=== PATIENT | male | born 1945 | race Caucasian/White ===

== ENCOUNTER 2016-07-31 22:53 | Inpatient (IN) | payer MEDICARE ==
[2016-07-31] MEDS ORDERED: SODIUM CHLORIDE 0.9% 1,000 ML IV STA (23:05)
[2016-07-31] MEDS ORDERED: DILTIAZEM 125 MG in SODIUM CHLORIDE 0.9% 100 ML IV ONE (23:09)
[2016-07-31] MEDS ORDERED: DILTIAZEM 5 MG/ML 5 ML VIAL IVP STA (23:09)
--- NOTE | 2016-07-31 23:31 | ED ---
General Adult HPI - General Chief complaint: Arrhythmia/Palpitations Stated complaint: Hypotension Time Seen by Provider: 07/31/16 23:03 Source: patient, family, RN notes reviewed, old records reviewed Mode of arrival: ambulatory Limitations: no limitations - History of Present Illness Initial comments: This is a 70-year-old male here for evaluation. Patient states he wasn't evaluated at home, feeling weak. Patient has strong significant heart history, history of recent surgery with kidney transplant. Patient coming in here for evaluation of these symptoms. Patient states he took his blood pressure a little low and has no necessary to be very elevated. At this time he had some mild chest pain as well. - Related Data Home Medications Medication Instructions Recorded Confirmed Atenolol [Tenormin] 25 mg PO DAILY@89901/12/15 07/31/16 Ergocalciferol [Vitamin D2 50,000 unit PO Q14D 01/12/15 07/31/16 (DRISDOL)] Magnesium Oxide [Mag-Ox] 400 mg PO DAILY@89901/12/15 07/31/16 Multivitamin [Men's Multi-Vitamin] 1 tab PO DAILY@89901/12/15 07/31/16 Beggs-3 Fatty Acids/Fish Oil [Fish 2 tab PO DAILY@0901/12/15 07/31/16 Oil 1,000 mg Softgel] Tacrolimus [Prograf] 4 mg PO HS@2300 01/12/15 07/31/16 Aspirin EC [Ecotrin Low Dose] 81 mg PO DAILY@0907/31/16 07/31/16 Atorvastatin [Lipitor] 20 mg PO DAILY@0907/31/16 07/31/16 Insulin Aspart [NovoLOG] 2 unit SQ HS 07/31/16 07/31/16 Insulin Aspart [NovoLOG] 4 unit SQ AC-TID 07/31/16 07/31/16 Insulin Aspart [NovoLOG] See Protocol SQ ACHS 07/31/16 07/31/16 Insulin NPH Human Isophane 8 unit SQ HS 07/31/16 07/31/16 [NovoLIN N] Insulin NPH Human Isophane 15 unit SQ AC-BRKFST 07/31/16 07/31/16 [NovoLIN N] Isosorbide Mononitrate ER [Imdur] 30 mg PO DAILY@0900 07/31/1607/31/17 Omeprazole 20 mg PO AC-BRKFST@0907/31/16 07/31/16 Sodium Bicarbonate Tab 650 mg PO BID@0900,229907/31/16 07/31/16 Sulfamethox-Tmp 800-160Mg [Bactrim 1 tab PO DAILY@89907/31/16 07/31/16 DS 800-160 mg] Tacrolimus [Prograf] 3 mg PO DAILY@89907/31/16 07/31/16 Zordress 0.75mg 1.5 mg PO BID@0900,23007/31/16 07/31/16 predniSONE 25 mg PO DAILY@89907/31/16 07/31/16 valGANciclovir [Valcyte] 450 mg PO DAILY@89907/31/16 07/31/16 Previous Rx's Medication Instructions Recorded Nitroglycerin Sl Tabs [Nitrostat] 0.4 mg SUBLINGUAL Q5M PRN #25 tab 06/20/15 Allergies Allergy/AdvReac Type Severity Reaction Status Date / Time No Known Allergies Allergy Verified 07/31/16 23:23 Review of Systems ROS Statement: Those systems with pertinent positive or pertinent negative responses have been documented in the HPI. ROS Other: All systems not noted in ROS Statement are negative. Past Medical History Past Medical History: Coronary Artery Disease (CAD), Chest Pain / Angina, Diabetes Mellitus, Hyperlipidemia, Hypertension, Myocardial Infarction (UT), Renal Disease Additional Past Medical History / Comment(s): migraines, umbilical and inguinal hernia, polycystic kidney disease Last Myocardial Infarction Date:: unk History of Any Multi-Drug Resistant Organisms: None Reported Past Surgical History: Coronary Bypass/CABG, Heart Catheterization With Stent Additional Past Surgical History / Comment(s): nile nephrectomy/ kidney transplant on rt in 2002, heart cath with 2 stents, colonocsopy.polyps removed- benign Past Anesthesia/Blood Transfusion Reactions: No Reported Reaction Date of Last Stent Placement:: unk Past Psychological History: No Psychological Hx Reported Additional Psychological History / Comment(s): PT LIVES AT HOME WITH HIS KALI, RETIRED FROM [employer] AFTER 42 YEARS AND SERVED IN THE [employer] WHEN YOUNGER. 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 Smoking Status: Never smoker Past Alcohol Use History: Occasional Past Drug Use History: None Reported - Past Family History Father Family Medical History: Cancer Additional Family Medical History / Comment(s): LUNG CANCER Mother Additional Family Medical History / Comment(s): POLYCYSTIC KIDNEY DISEASE General Exam Limitations: no limitations General appearance: alert, in no apparent distress, anxious, in distress Head exam: Present: atraumatic, normocephalic, normal inspection Eye exam: Present: normal appearance, PERRL, EOMI. Absent: scleral icterus, conjunctival injection, periorbital swelling ENT exam: Present: mucous membranes dry Neck exam: Present: normal inspection. Absent: tenderness, meningismus, lymphadenopathy Respiratory exam: Present: normal lung sounds bilaterally. Absent: respiratory distress, wheezes, rales, rhonchi, stridor Cardiovascular Exam: Present: tachycardia, irregular rhythm, normal heart sounds. Absent: systolic murmur, diastolic murmur, rubs, gallop, clicks GI/Abdominal exam: Present: soft, normal bowel sounds. Absent: distended, tenderness, guarding, rebound, rigid Extremities exam: Present: normal inspection, full ROM, normal capillary refill. Absent: tenderness, pedal edema, joint swelling, calf tenderness Back exam: Present: normal inspection Neurological exam: Present: alert, oriented X3, CN II-XII intact Psychiatric exam: Present: normal affect, normal mood Skin exam: Present: warm, dry, intact, normal color. Absent: rash Course Vital Signs 07/31/16 07/31/16 07/31/16 22:55 23:30 23:42 Temperature 98.6 F Pulse Rate 115 H 124 H 88 Respiratory 20 18 18 Rate Blood Pressure 134/86 109/76 102/62 O2 Sat by Pulse 98 98 98 Oximetry 07/31/16 07/31/16 08/01/16 23:50 23:57 00:02 Temperature Pulse Rate 121 H 103 H 90 Respiratory 18 18 18 Rate Blood Pressure 106/66 111/62 103/62 O2 Sat by Pulse 98 97 98 Oximetry 08/01/16 00:16 Temperature 98.2 F Pulse Rate 107 H Respiratory 18 Rate Blood Pressure 102/68 O2 Sat by Pulse 98 Oximetry - Reevaluation(s) Reevaluation #1: 07/31/16 23:55 Patient hydrated and this time is coming under good control, feeling improved with symptomatic therapy and IV fluid. EKG Findings - EKG Comments: EKG Findings:: EKG shows A. fib with RVR rate 129, QRS 102, QTc 462 Medical Decision Making - Medical Decision Making 70-year-old male here for evaluation. Patient presented today for evaluation of elevated heart rate low blood pressure, patient is in A. fib with RVR, elevated troponin. Patient be admitted for cardiac evaluation and observation, secondary to A. fib with RVR and non-ST elevated UT, elevated troponin - Lab Data Result diagrams: 08/01/16 04:23 07/31/16 23:19 Lab Results 07/31/16 07/31/16 07/31/16 Range/Units 23:19 23:19 23:19 WBC 7.9 (3.8-10.6) k/uL RBC 3.56 L (4.30-5.90) m/uL Hgb 10.9 L (13.0-17.5) gm/dL Hct 33.3 L (39.0-53.0) % MCV 93.4 (80.0-100.0) fL MCH 30.7 (25.0-35.0) pg MCHC 32.9 (31.0-37.0) g/dL RDW 16.1 H (11.5-15.5) % Plt Count 94 L (150-450) k/uL Neutrophils % 92 % Lymphocytes % 5 % Monocytes % 2 % Eosinophils % 0 % Basophils % 0 % Neutrophils # 7.2 (1.3-7.7) k/uL Lymphocytes # 0.4 L (1.0-4.8) k/uL Monocytes # 0.1 (0-1.0) k/uL Eosinophils # 0.0 (0-0.7) k/uL Basophils # 0.0 (0-0.2) k/uL Manual Slide Review Performed Anisocytosis Slight PT (9.0-12.0) sec INR (<1.1) APTT (22.0-30.0) sec Sodium 129 L (137-145) mmol/L Potassium 4.9 (3.5-5.1) mmol/L Chloride 97 L (98-107) mmol/L Carbon Dioxide 22 (22-30) mmol/L Anion Gap 10 mmol/L BUN 38 H (9-20) mg/dL Creatinine 1.20 (0.66-1.25) mg/dL Est GFR (MDRD) Af Amer >60 (>60 ml/min/1.73 sqM) Est GFR (MDRD) Non-Af 60 (>60 ml/min/1.73 sqM) Glucose 278 H (74-99) mg/dL Calcium 8.9 (8.4-10.2) mg/dL Phosphorus 3.6 (2.5-4.5) mg/dL Magnesium 1.9 (1.6-2.3) mg/dL Total Bilirubin 0.5 (0.2-1.3) mg/dL AST 43 (17-59) U/L ALT 50 (21-72) U/L Alkaline Phosphatase 67 (38-126) U/L Total Creatine Kinase 83 (55-170) U/L CK-MB (CK-2) 6.4 H* (0.0-2.4) ng/mL CK-MB (CK-2) Rel Index 7.7 Troponin I 0.099 H* (0.000-0.034) ng/mL NT-Pro-B Natriuret Pep pg/mL Total Protein 5.7 L (6.3-8.2) g/dL Albumin 3.6 (3.5-5.0) g/dL TSH 1.390 (0.465-4.680) mIU/L 07/31/16 07/31/16 Range/Units 23:19 23:19 WBC (3.8-10.6) k/uL RBC (4.30-5.90) m/uL Hgb (13.0-17.5) gm/dL Hct (39.0-53.0) % MCV (80.0-100.0) fL MCH (25.0-35.0) pg MCHC (31.0-37.0) g/dL RDW (11.5-15.5) % Plt Count (150-450) k/uL Neutrophils % % Lymphocytes % % Monocytes % % Eosinophils % % Basophils % % Neutrophils # (1.3-7.7) k/uL Lymphocytes # (1.0-4.8) k/uL Monocytes # (0-1.0) k/uL Eosinophils # (0-0.7) k/uL Basophils # (0-0.2) k/uL Manual Slide Review Anisocytosis PT 11.5 (9.0-12.0) sec INR 1.1 (<1.1) APTT 19.4 L (22.0-30.0) sec Sodium (137-145) mmol/L Potassium (3.5-5.1) mmol/L Chloride (98-107) mmol/L Carbon Dioxide (22-30) mmol/L Anion Gap mmol/L BUN (9-20) mg/dL Creatinine (0.66-1.25) mg/dL Est GFR (MDRD) Af Amer (>60 ml/min/1.73 sqM) Est GFR (MDRD) Non-Af (>60 ml/min/1.73 sqM) Glucose (74-99) mg/dL Calcium (8.4-10.2) mg/dL Phosphorus (2.5-4.5) mg/dL Magnesium (1.6-2.3) mg/dL Total Bilirubin (0.2-1.3) mg/dL AST (17-59) U/L ALT (21-72) U/L Alkaline Phosphatase (38-126) U/L Total Creatine Kinase (55-170) U/L CK-MB (CK-2) (0.0-2.4) ng/mL CK-MB (CK-2) Rel Index Troponin I (0.000-0.034) ng/mL NT-Pro-B Natriuret Pep 1610 pg/mL Total Protein (6.3-8.2) g/dL Albumin (3.5-5.0) g/dL TSH (0.465-4.680) mIU/L - Radiology Data Radiology results: report reviewed (Chest x-ray 2 view negative for acute disease), image reviewed Critical Care Time Critical Care Time: Yes Total Critical Care Time: 31 Disposition Clinical Impression: Atrial fibrillation, Atrial fibrillation with RVR, Unstable angina pectoris, Hypotension, NSTEMI (non-ST elevated myocardial infarction) Disposition: ADMITTED IP TO THIS [facility] Condition: Serious
[2016-07-31 23:37] LABS: Anisocytosis Slight; Basophils % (A) 0 %; CH 30.4; CHCM 32.7; Eosinophils % (A) 0 %; HCT 33.3 % (39.0-53.0); HGB 10.9 gm/dL (13.0-17.5); Luc # (Auto) 0.03; Luc % (Auto) 0; Lymphocytes # (A) 0.4 k/uL (1.0-4.8); Lymphocytes % (A) 5 %; MCH 30.7 pg (25.0-35.0); MCHC 32.9 g/dL (31.0-37.0); MCV 93.4 fL (80.0-100.0); Mean Platelet Volume 8.7; Monocytes # (A) 0.1 k/uL (0-1.0); Monocytes % (A) 2 %; Neutrophils # (A) 7.2 k/uL (1.3-7.7); Neutrophils % (A) 92 %; RBC 3.56 m/uL (4.30-5.90); RDW 16.1 % (11.5-15.5); WBC 7.9 k/uL (3.8-10.6); WBC (Perox) 8.41
[2016-07-31 23:43] LABS: ALT 50 U/L (21-72); AST 43 U/L (17-59); Alkaline Phosphatase 67 U/L (38-126); Anion Gap 10 mmol/L; Blood Urea Nitrogen 38 mg/dL (9-20); Calcium 8.9 mg/dL (8.4-10.2); Carbon Dioxide 22 mmol/L (22-30); Chloride 97 mmol/L (98-107); Glucose 278 mg/dL (74-99); Magnesium 1.9 mg/dL (1.6-2.3); Non-African American GFR(MDRD) 60 (>60 ml/min/1.73 sqM); Phosphorous 3.6 mg/dL (2.5-4.5); Sodium 129 mmol/L (137-145); Total Bilirubin 0.5 mg/dL (0.2-1.3); Total Protein 5.7 g/dL (6.3-8.2)
[2016-07-31 23:45] LABS: Potassium 4.9 mmol/L (3.5-5.1)
[2016-07-31 23:47] LABS: INR 1.1 (<1.1); Prothrombin Time 11.5 sec (9.0-12.0)
[2016-07-31] MEDS ORDERED: MORPHINE SULFATE 4 MG/ML SYRINGE IV PRN (23:50)
[2016-07-31] MEDS ORDERED: NITROGLYCERIN SL TABS 0.4 MG TAB SUBLINGUAL PRN (23:50)
[2016-07-31] MEDS ORDERED: ASPIRIN 81 MG CHEW PO STA (23:50)
[2016-07-31 23:56] LABS: Partial Thromboplastin Time 19.4 sec (22.0-30.0)
[2016-08-01 00:15] LABS: Creatine Kinase MB 6.4 ng/mL (0.0-2.4); Troponin I 0.099 ng/mL (0.000-0.034)
[2016-08-01 00:21] LABS: Manual Review Performed
--- NOTE | 2016-08-01 00:22 | XR ---
EXAMINATION TYPE: XR chest 2V DATE OF EXAM: 07/31/2016 11:46 PM COMPARISON: 06/17/2015 HISTORY: Weakness history of stents bypass. TECHNIQUE: Frontal and lateral views of the chest are obtained. FINDINGS: Mild chronic lung changes are suggested. There is no focal air space opacity, pleural effusion, or pneumothorax seen. There is mild cardiomeg fabián and postsurgical changes of sternotomy.. The osseous structures are intact. IMPRESSION: 1. No active lung infiltrates. 2. Chronic lung changes. 3. Sternotomy and mild cardiomegaly. 4. No significant change.
[2016-08-01 00:49] LABS: Glucose,Whole Blood 217 mg/dL (75-99)
[2016-08-01 03:59] VITALS: BMI 25.2
[2016-08-01 04:55] LABS: Anisocytosis Slight; Basophils % (A) 0 %; CH 30.3; CHCM 32.4; Eosinophils # (A) 0.1 k/uL (0-0.7); Eosinophils % (A) 1 %; HCT 28.3 % (39.0-53.0); HDW 2.59; Luc # (Auto) 0.04; Luc % (Auto) 1; Lymphocytes # (A) 0.4 k/uL (1.0-4.8); Lymphocytes % (A) 9 %; MCH 30.6 pg (25.0-35.0); MCHC 32.7 g/dL (31.0-37.0); MCV 93.8 fL (80.0-100.0); Mean Platelet Volume 8.7; Monocytes # (A) 0.1 k/uL (0-1.0); Monocytes % (A) 3 %; Neutrophils # (A) 3.9 k/uL (1.3-7.7); Neutrophils % (A) 86 %; RBC 3.02 m/uL (4.30-5.90); WBC 4.6 k/uL (3.8-10.6); WBC (Perox) 4.68
[2016-08-01 05:01] LABS: HGB 9.3 gm/dL (13.0-17.5)
[2016-08-01 05:06] LABS: Anion Gap 9 mmol/L; Blood Urea Nitrogen 35 mg/dL (9-20); Calcium 8.5 mg/dL (8.4-10.2); Carbon Dioxide 22 mmol/L (22-30); Chloride 100 mmol/L (98-107); Cholesterol 158 mg/dL (<200); Glucose 186 mg/dL (74-99); HDL Cholesterol 37 mg/dL (40-60); Magnesium 1.8 mg/dL (1.6-2.3); Non-African American GFR(MDRD) >60 (>60 ml/min/1.73 sqM); Phosphorous 3.9 mg/dL (2.5-4.5); Potassium 4.2 mmol/L (3.5-5.1); Sodium 131 mmol/L (137-145); Triglycerides 297 mg/dL (<150)
[2016-08-01 05:34] LABS: Creatine Kinase MB 11.6 ng/mL (0.0-2.4); Troponin I 0.452 ng/mL (0.000-0.034)
[2016-08-01 07:49] LABS: Glucose,Whole Blood 198 mg/dL (75-99)
[2016-08-01] MEDS: INSULIN LISPRO (humaLOG) 300 UNIT/3 ML VIAL SQ SCH ×2 (08:54→13:14)
[2016-08-01] MEDS ORDERED: ATORVASTATIN 80 MG TAB PO SCH (09:00)
[2016-08-01] MEDS ORDERED: TACROLIMUS 1 MG CAP PO SCH (09:00)
[2016-08-01] MEDS ORDERED: ASPIRIN 325 MG TAB PO SCH (09:00)
[2016-08-01] MEDS ORDERED: predniSONE 50 MG TAB PO SCH (09:15)
[2016-08-01] MEDS ORDERED: HEPARIN SODIUM,PORCINE 5,000 UNIT/ML 1 ML VIAL IV PRN (09:30)
[2016-08-01] MEDS ORDERED: HEPARIN SODIUM,PORCINE 5,000 UNIT/ML 1 ML VIAL IV ONE (09:30)
[2016-08-01] MEDS ORDERED: HEPARIN SODIUM,PORCINE/D5W PMX 25,000 UNIT in DEXTROSE/WATER 1 500ML.BAG IV SCH (09:30)
[2016-08-01 09:44] LABS: Hemoglobin A1C 6.2 % (4.2-6.1)
[2016-08-01 09:56] LABS: Anisocytosis Slight; Basophils % (A) 0 %; CH 30.3; Eosinophils % (A) 1 %; HCT 29.6 % (39.0-53.0); HDW 2.53; HGB 9.2 gm/dL (13.0-17.5); Hypochromasia Slight; Luc # (Auto) 0.01; Luc % (Auto) 0; Lymphocytes # (A) 0.4 k/uL (1.0-4.8); Lymphocytes % (A) 8 %; MCH 30.6 pg (25.0-35.0); MCHC 31.1 g/dL (31.0-37.0); MCV 98.1 fL (80.0-100.0); Macrocytosis Slight; Mean Platelet Volume 10.1; Monocytes # (A) 0.1 k/uL (0-1.0); Monocytes % (A) 2 %; Neutrophils # (A) 4.2 k/uL (1.3-7.7); Neutrophils % (A) 88 %; RBC 3.02 m/uL (4.30-5.90); WBC 4.7 k/uL (3.8-10.6); WBC (Perox) 4.75
[2016-08-01] MEDS ORDERED: CLOPIDOGREL 75 MG TAB PO SCH (10:00)
[2016-08-01] MEDS ORDERED: ASPIRIN 81 MG CHEW PO SCH (10:00)
[2016-08-01] MEDS: MAGNESIUM SULFATE-D5W PMX 1 GM in DEXTROSE/WATER 1 100ML.BAG IVPB SCH ×2 (10:06→10:36)
[2016-08-01 10:12] LABS: INR 1.2 (<1.1); Partial Thromboplastin Time 20.2 sec (22.0-30.0); Prothrombin Time 12.3 sec (9.0-12.0)
[2016-08-01] MEDS ORDERED: SODIUM BICARBONATE TAB 650 MG TAB PO SCH ×2 (10:30→23:00)
[2016-08-01] MEDS: SODIUM CHLORIDE 0.9% 1,000 ML IV SCH ×2 (10:35→10:36)
[2016-08-01] MEDS ORDERED: ZORTRESS 0.75 MG PO ONE (12:00)
[2016-08-01 12:04] VITALS: TEMP 98.8
[2016-08-01 12:35] LABS: Creatine Kinase MB 16.9 ng/mL (0.0-2.4)
[2016-08-01 12:36] LABS: Troponin I 0.513 ng/mL (0.000-0.034)
[2016-08-01 12:37] LABS: Glucose,Whole Blood 281 mg/dL (75-99)
[2016-08-01 13:09] LABS: Appearance,Urine Clear (Clear); Bilirubin,Urine Negative (Negative); Glucose,Urine (UA) 4+ (Negative); Ketones,Urine Negative (Negative); Leukocyte Esterase,Urine Negative (Negative); Nitrite,Urine Negative (Negative); Protein,Urine Negative (Negative); Specific Gravity,Urine 1.006 (1.001-1.035); UA Billing (MACRO vs. MICRO) CHEM; Urobilinogen,Urine <2.0 mg/dL (<2.0)
[2016-08-01] MEDS ORDERED: DILTIAZEM 125 MG in SODIUM CHLORIDE 0.9% 100 ML IV SCH (13:30)
[2016-08-01 14:55] VITALS: BP 108/68; PULSE 80; RESP 17
--- NOTE | 2016-08-01 16:40 | HP ---
DATE OF ADMISSION: Patient is 70-year-old gentleman who came in after he has complaints of generalized fatigue and patient started feeling palpitations yesterday morning. Patient came to ER yesterday and found to be in atrial fibrillation with rapid ventricular rate. Patient was started on Cardizem here. Patient has normal ejection fraction and moderate pulmonary hypertension and patient is a renal transplant with baseline creatinine around 1.1. His creatinine is 1.9. Patient does not have any signs or symptoms of sepsis at this point of time. Patient denied any cough. Patient had chest x-ray, which did not show any pneumonic process and he does not have any urinary tract infection. Patient feels a little dry and mild renal dysfunction with creatinine going up to 1.2. Beyond that, there is no other precipitating factor for his atrial fibrillation. This is new onset atrial fibrillation and patient was started on Cardizem. Because of significant interaction between Cardizem and his antirejection medications, transplant team from [facility] wanted him to be transferred to [facility], although patient at this point of time was switched to beta ellen. The patient continues to be on Cardizem drip. Patient just before transfer did convert to sinus rhythm. Patient probably will just benefit from metoprolol itself and patient is on atenolol at home. Patient denied any abdominal pain. Patient denied any nausea or vomiting. His symptom onset was yesterday morning, although, visiting nurses did tell him a few days ago that he has irregularly irregular heartbeat. At that time patient was symptomatic. REVIEW OF SYSTEMS: CONSTITUTIONAL: No fever, no malaise, no fatigue. HEENT: No recent visual problems or hearing problems. Denied any sore throat. CARDIOVASCULAR: As described in HPI. The patient denied any chest pain, orthopnea, or PND. PULMONARY: No shortness of breath, no cough, no hemoptysis. GASTROINTESTINAL: No diarrhea, no nausea, no vomiting, no abdominal pain. Normoactive bowel sounds. NEUROLOGICAL: No headaches, no weakness, no numbness. HEMATOLOGICAL: Denies any bleeding or petechiae. GENITOURINARY: Denies any burning micturition, frequency, or urgency. MUSCULOSKELETAL/RHEUMATOLOGICAL: Denies any joint pain, swelling, or any muscle pain. ENDOCRINE: Denies any polyuria or polydipsia. The rest of the 14 point review of systems is negative. Home medications include: Atenolol, cholecalciferol, magnesium oxide, multivitamin, [place]-3 fatty acids, tacrolimus, aspirin, insulin aspart, isosorbide mononitrate, Bactrim as immunosuppressive medication, tacrolimus, ( ), prednisone, valganciclovir, Valcyte and patient is also on nitroglycerin sublingual as needed. PAST MEDICAL HISTORY: Coronary artery disease. Patient had myocardial infarction, coronary artery bypass grafting in the past, diabetes mellitus, hyperlipidemia, renal transplant, inguinal hernia repair, polycystic kidney disease. Patient had a cardiac catheterization and stent placement and the coronary artery bypass grafting in the past. SOCIAL HISTORY: He denies smoking, alcohol abuse or any drug abuse. FAMILY HISTORY: Significant for lung cancer. Mother had polycystic kidney disease. PHYSICAL EXAMINATION: VITAL SIGNS: Temperature 98.0, pulse of 80, respiratory rate of 17, blood pressure is 108/68, saturating at 95% on room air. GENERAL: The patient is alert and oriented x3, not in any acute distress. Well developed, well nourished. HEENT: Pupils are round and equally reacting to light. EOMI. No scleral icterus. No conjunctival pallor. Normocephalic, atraumatic. No pharyngeal erythema. No thyromegaly. CARDIOVASCULAR: I examined him before he got converted to sinus rhythm and cardiovascular was S1 and S2 present. Irregularly irregular rhythm, tachycardic. No murmurs, rubs, or gallops. PULMONARY: Chest is clear to auscultation, no wheezing or crackles. ABDOMEN: Soft, nontender, nondistended, normoactive bowel sounds. No palpable organomegaly. MUSCULOSKELETAL: No joint swelling or deformity. EXTREMITIES: No cyanosis, clubbing, or pedal edema. NEUROLOGICAL: Gross neurological examination did not reveal any focal deficits. SKIN: No rashes. LABORATORY DATA: Significant lab data includes hemoglobin of 9.2, which is normocytic anemia, appears to be chronic anemia. Mildly elevated troponin of 0.513 and troponins remain stable at around 0.4 and 0.5. UA showed 4+ glucose. His blood glucose fluctuated between 190 and 280. Patient was started on heparin drip with elevated APTT. Sodium is 131 now. It was 129 probably because of the tacrolimus effect. Magnesium is 1.8, though. ASSESSMENT AND PLAN: 1. New onset atrial fibrillation with rapid ventricular rate. For the above mentioned reasons patient is being transferred to [facility]. Patient is on IV Cardizem at this point of time, which is being continued. Patient spontaneously converted to sinus rhythm. Patient probably can be switched to beta ellen in the form metoprolol rather than atenolol, which he was taking at home. 2. History of coronary artery disease with recent cardiac catheterization and coronary artery bypass graft. 3. Post renal transplant. 4. Mild acute renal failure for which patient will benefit from IV fluid resuscitation for one more day. Creatinine improved from 1.2 to 1.1. BUN is around 35 now. 5. Mild hypovolemic hyponatremia and hyponatremia can be related to his tacrolimus as well. 6. History of polycystic kidney disease. 7. Hypertension. 8. Type 2 diabetes mellitus. 9. Hyperlipidemia. 10. Anemia of chronic disease. PLAN: Patient will be transferred to [facility] for further management of atrial fibrillation considering that he is on Cardizem and significant interaction of Cardizem with his antirejection medication which need to be actively titrated, which cannot be done in this hospital. Patient's primary care physician is Dr. Maksim De La O.
--- NOTE | 2016-08-01 23:30 | P.CRDCN ---
History of Present Illness Consult date: 08/01/16 History of present illness: This is a 70-year-old gentleman with history of ischemic heart disease and also recent kidney transplantation done at [facility], is admitted now to the hospital with complaints of fatigue and palpitations. He was found to be in atrial fibrillation with a rapid ventricular response. Patient was started on a Cardizem drip. Patient also has moderate pulmonary hypertension but preserved LV function. Patient was treated with Cardizem IV rate control. Because of interaction between the IV Cardizem and also antirejection medication , patient is being transferred for further management at [facility]. They were also concerned that medication will make his neck pressure below 120. Patient also started on IV heparin. He denies any chest pain or shortness of breath. He doesn't appear to be in acute distress. He is being transferred to [facility] Review of Systems REVIEW OF SYSTEMS: CONSTITUTIONAL:. Patient is doing well. No complaints of fever or chills EYES: Denies diplopia, blurring of vision EARS, NOSE, MOUTH, THROAT: Denies headaches, denies sore throat. CARDIOVASCULAR: As per HPI RESPIRATORY: Denies shortness of breath, denies cough. GASTROINTESTINAL: Denies change in appetite, denies abdominal pain, denies diarrhea GENITOURINARY: Denies hematuria, denies infections. MUSKULOSKELETAL: Denies pain, denies swelling. Denies any cramps or claudication INTEGUMENTARY: Denies rash, denies eczema. NEUROLOGICAL: Denies focal weakness, or visual disturbance. Denies any dizziness or syncope PSYCHIATRIC: Denies anxiety, denies depression. HEMATOLOGIC/LYMPHATIC: Denies any bleeding, denies enlarged lymph nodes. Past Medical History Past Medical History: Coronary Artery Disease (CAD), Chest Pain / Angina, Diabetes Mellitus, Hyperlipidemia, Hypertension, Myocardial Infarction ([place]), Renal Disease Additional Past Medical History / Comment(s): migraines, umbilical and inguinal hernia, polycystic kidney disease Last Myocardial Infarction Date:: unk History of Any Multi-Drug Resistant Organisms: None Reported Past Surgical History: Coronary Bypass/CABG, Heart Catheterization With Stent Additional Past Surgical History / Comment(s): nile nephrectomy/ kidney transplant on rt in 2002, heart cath with 2 stents, colonocsopy.polyps removed- benign Past Anesthesia/Blood Transfusion Reactions: No Reported Reaction Date of Last Stent Placement:: unk Past Psychological History: No Psychological Hx Reported Additional Psychological History / Comment(s): PT LIVES AT HOME WITH HIS KALI, RETIRED FROM [employer] AFTER 42 YEARS AND SERVED IN THE [employer] WHEN YOUNGER. 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 Smoking Status: Never smoker Past Alcohol Use History: Occasional Past Drug Use History: None Reported - Past Family History Father Family Medical History: Cancer Additional Family Medical History / Comment(s): LUNG CANCER Mother Additional Family Medical History / Comment(s): POLYCYSTIC KIDNEY DISEASE Medications and Allergies Home Medications Medication Instructions Recorded Confirmed Type Atenolol [Tenormin] 25 mg PO DAILY@0900 01/12/15 07/31/16 History Ergocalciferol [Vitamin D2 50,000 unit PO Q14D 01/12/15 07/31/16 History (DRISDOL)] Magnesium Oxide [Mag-Ox] 400 mg PO DAILY@0900 01/12/15 07/31/16 History Multivitamin [Men's Multi-Vitamin] 1 tab PO DAILY@0900 01/12/15 07/31/16 History [place]-3 Fatty Acids/Fish Oil [Fish 2 tab PO DAILY@0900 01/12/15 07/31/16 History Oil 1,000 mg Softgel] Tacrolimus [Prograf] 4 mg PO HS@2300 01/12/15 07/31/16 History Aspirin EC [Ecotrin Low Dose] 81 mg PO DAILY@0900 07/31/16 07/31/16 History Atorvastatin [Lipitor] 20 mg PO DAILY@0900 07/31/16 07/31/16 History Insulin Aspart [NovoLOG] 2 unit SQ HS 07/31/16 07/31/16 History Insulin Aspart [NovoLOG] 4 unit SQ AC-TID 07/31/16 07/31/16 History Insulin Aspart [NovoLOG] See Protocol SQ ACHS 07/31/16 07/31/16 History Insulin NPH Human Isophane 8 unit SQ HS 07/31/16 07/31/16 History [NovoLIN N] Insulin NPH Human Isophane 15 unit SQ AC-BRKFST 07/31/16 07/31/16 History [NovoLIN N] Isosorbide Mononitrate ER [Imdur] 30 mg PO DAILY@0907/31/16 07/31/16 History Omeprazole 20 mg PO AC-BRKFST@0900 07/31/16 07/31/16 History Sodium Bicarbonate Tab 650 mg PO BID@0900,2300 07/31/16 07/31/16 History Sulfamethox-Tmp 800-160Mg [Bactrim 1 tab PO DAILY@0900 07/31/16 07/31/16 History DS 800-160 mg] Tacrolimus [Prograf] 3 mg PO DAILY@0900 07/31/16 07/31/16 History Zordress 0.75mg 1.5 mg PO BID@0900,2300 07/31/16 07/31/16 History predniSONE 25 mg PO DAILY@0900 07/31/16 07/31/16 History valGANciclovir [Valcyte] 450 mg PO DAILY@0900 07/31/16 07/31/16 History Allergies Allergy/AdvReac Type Severity Reaction Status Date / Time No Known Allergies Allergy Verified 07/31/16 23:23 Physical Exam Vitals: Vital Signs Temp Pulse Pulse Resp BP BP Pulse Ox 08/01/16 14:45 80 17 108/68 08/01/16 14:30 79 12 108/68 08/01/16 14:15 82 19 127/90 08/01/16 14:00 122 H 17 127/90 08/01/16 13:00 127 H 28 H 108/65 08/01/16 12:00 98.8 F 108 H 108 H 23 108/65 95 08/01/16 11:00 111 H 15 122/63 08/01/16 10:00 108 H 114 H 13 122/63 08/01/16 09:00 98 16 101/69 08/01/16 08:00 98.0 F 105 H 107 H 8 L 101/69 101/69 98 08/01/16 07:00 114 H 18 08/01/16 06:00 114 H 16 96/72 08/01/16 05:00 98 13 96/72 08/01/16 04:00 97.8 F 85 17 96/72 97 08/01/16 03:00 104 H 17 96 08/01/16 02:00 103 H 18 99 08/01/16 01:00 97.3 F L 93 21 135/71 97 08/01/16 00:16 98.2 F 107 H 18 102/68 98 01/06/17 00:02 90 18 103/62 98 07/31/16 23:57 103 H 18 111/62 97 Intake and Output 08/01/16 08/01/16 08/02/16 14:59 22:59 06:59 Intake Total 652.25 Output Total 400 Balance 252.25 Intake: IV 600 Sodium Chloride 0.9% 1, 600 000 ml @ 100 mls/hr IV . Q10H [facility] Rx#:[id number] Intake, IV Titration 52.25 Amount Diltiazem 125 mg In 52.25 Sodium Chloride 0.9% 100 ml @ 5 MG/HR 5 mls/hr IV .Q24H [facility] Rx#:[id number] Output: Urine 400 Other: Voiding Method Toilet GENERAL EXAM: Patient is alert and oriented and doesn't appear to be in any acute distress HEENT: Normocephalic. Normal reaction of pupils, equal size, normal range of extraocular motion. No erythema or exudates in the throat. NECK: No masses, no nuchal rigidity. CHEST: No chest wall deformity. LUNGS: Equal air entry with no crackles or wheeze. HEART: S1 and S2 normal with no audible mumurs or gallops. Irregular rhythm ABDOMEN: No hepatosplenomegaly, normal bowel sounds, no guarding or rigidity. SKIN: No rashes CENTRAL NERVOUS SYSTEM: No focal deficits. EXTREMITIES: No cyanosis, clubbing or edema. Results 08/01/16 09:40 08/01/16 04:23 Cardiac Enzymes 08/01/16 08/01/16 Range/Units 04:23 11:23 CK-MB (CK-2) 11.6 H* 16.9 H* (0.0-2.4) ng/mL Troponin I 0.452 H* 0.513 H* (0.000-0.034) ng/mL Coagulation 08/01/16 Range/Units 09:40 PT 12.3 H (9.0-12.0) sec APTT 20.2 L (22.0-30.0) sec Lipids 08/01/16 Range/Units 04:23 Triglycerides 297 H (<150) mg/dL Cholesterol 158 (<200) mg/dL HDL Cholesterol 37 L (40-60) mg/dL CBC 08/01/16 08/01/16 Range/Units 04:23 09:40 WBC 4.6 4.7 (3.8-10.6) k/uL RBC 3.02 L 3.02 L (4.30-5.90) m/uL Hgb 9.3 L D 9.2 L (13.0-17.5) gm/dL Hct 28.3 L 29.6 L (39.0-53.0) % Plt Count 63 L 67 L (150-450) k/uL Comprehensive Metabolic Panel 08/01/16 Range/Units 04:23 Sodium 131 L (137-145) mmol/L Potassium 4.2 (3.5-5.1) mmol/L Chloride 100 (98-107) mmol/L Carbon Dioxide 22 (22-30) mmol/L BUN 35 H (9-20) mg/dL Creatinine 1.10 (0.66-1.25) mg/dL Glucose 186 H (74-99) mg/dL Calcium 8.5 (8.4-10.2) mg/dL Intake and Output 08/01/16 08/01/16 08/02/16 14:59 22:59 06:59 Intake Total 652.25 Output Total 400 Balance 252.25 Intake: IV 600 Sodium Chloride 0.9% 1, 600 000 ml @ 100 mls/hr IV . Q10H [facility] Rx#:[id number] Intake, IV Titration 52.25 Amount Diltiazem 125 mg In 52.25 Sodium Chloride 0.9% 100 ml @ 5 MG/HR 5 mls/hr IV .Q24H [facility] Rx#:[id number] Output: Urine 400 Other: Voiding Method Toilet 08/01/16 09:40 08/01/16 04:23 EKG Interpretations (text) Atrial fibrillation with rapid ventricular response Assessment and Plan (1) Atrial fibrillation Status: Acute (2) Atrial fibrillation with RVR Status: Acute (3) CAD (coronary artery disease) Status: Acute (4) Diabetes mellitus Status: Acute (5) Hx of CABG Status: Acute (6) Hypertension Status: Acute Plan: Patient isn't on IV heparin and also IV Cardizem. Patient is being transferred to [facility] for further management. CARLOS Cardioversion could have been done but patient had breakfast this morning. Further recommendation will depend upon clinical course.
[2016-08-02] MEDS ORDERED: PANTOPRAZOLE 40 MG TABLET PO SCH (07:30)
[2016-08-02] MEDS ORDERED: SULFAMETHOX-TMP 800-160MG 1 EACH TAB PO SCH (09:00)
[2016-08-02] MEDS ORDERED: FISH OIL PO SCH (09:00)
[2016-08-02] MEDS ORDERED: FATTY ACIDS PO SCH (09:00)
[2016-08-02] MEDS ORDERED: OMEGA PO SCH (09:00)
[2016-08-02] MEDS ORDERED: MULTIVITAMINS, THERA 1 EACH TAB PO SCH (12:00)
[2016-08-02 14:42] LABS: Tacrolimus (FK506) 5.8 ng/mL (5.0-20.0)
[2016-08-05 16:10] LABS: Mis test requested (Blood) Everolimus Level
[2016-08-10] MEDS ORDERED: ERGOCALCIFEROL 50,000 UNIT CAP PO SCH (12:00)
== END 2016-08-01 16:01 | disposition short-term general hospital (02) | DRG 309 ==
LOC: EC 22:53 → 6ICU 23:50
PROVIDERS: ADMIT Hospitalist; ATTEND Hospitalist
DX: I48.91 Unspecified atrial fibrillation (principal); E87.1 Hypo-osmolality and hyponatremia; N17.9 Acute kidney failure, unspecified; Q61.3 Polycystic kidney, unspecified; I27.2 Other secondary pulmonary hypertension; I95.9 Hypotension, unspecified; E11.9 Type 2 diabetes mellitus without complications; I10 Essential (primary) hypertension; D63.8 Anemia in other chronic diseases classified elsewhere; Z94.0 Kidney transplant status; E86.1 Hypovolemia; T45.1X5A Adverse effect of antineoplastic and immunosuppressive drugs, initial encounter; E78.5 Hyperlipidemia, unspecified; I25.2 Old myocardial infarction; I25.10 Atherosclerotic heart disease of native coronary artery without angina pectoris; Z90.5 Acquired absence of kidney; R07.9 Chest pain, unspecified; R53.1 Weakness; K42.9 Umbilical hernia without obstruction or gangrene; G43.909 Migraine, unspecified, not intractable, without status migrainosus; K40.90 Unilateral inguinal hernia, without obstruction or gangrene, not specified as recurrent; R74.8 Abnormal levels of other serum enzymes; Z79.2 Long term (current) use of antibiotics; Z95.1 Presence of aortocoronary bypass graft; Z82.71 Family history of polycystic kidney; Z80.1 Family history of malignant neoplasm of trachea, bronchus and lung; Z95.5 Presence of coronary angioplasty implant and graft; Z86.010 Personal history of colon polyps; Z79.82 Long term (current) use of aspirin; Z79.4 Long term (current) use of insulin; Z79.52 Long term (current) use of systemic steroids; Z79.899 Other long term (current) drug therapy
CPT/HCPCS: 36415; 71020; 80048; 80053; 80061; 80169; 80197; 81003; 82550; 82553; 83036; 83735; 83880; 84100; 84443; 84484; 85025; 85610; 85730; 93005; 96365; 96376; 99291

== ENCOUNTER → 2017-09-28 | Outpatient (CLI) | payer MEDICARE | END | disposition home or self-care (01) | LOC: LABWHC1 07:00 | PROVIDERS: ATTEND Nurse Practitioner Family | DX: E55.9 Vitamin D deficiency, unspecified (principal); N18.3 Chronic kidney disease, stage 3 (moderate); N25.81 Secondary hyperparathyroidism of renal origin; N39.0 Urinary tract infection, site not specified; D50.9 Iron deficiency anemia, unspecified; M10.9 Gout, unspecified | CPT/HCPCS: 36415; 83970 ==

== ENCOUNTER → 2018-09-22 | Outpatient (CLI) | payer MEDICARE ==
--- NOTE | 2018-09-22 09:56 | US ---
EXAMINATION TYPE: US kidneys/renal and bladder DATE OF EXAM: 09/22/2018 COMPARISON: NONE CLINICAL HISTORY: N18.3 Chronic Kidney Stage 3. 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 Left pelvic transplant appears wnl, doppler produced good arterial and venous flow. Bladder: Distended normally with no definite abnormality Bilateral Jets seen: unable to obtain, unsure of ureter location since transplant IMPRESSION: Renal transplant demonstrates document perfusion with no evidence of abnormal surrounding fluid colle ction, hydronephrosis or nephrolithiasis.
== END | disposition home or self-care (01) ==
LOC: RADUSWWP 09:16
PROVIDERS: ATTEND Internal Medicine Nephrology
DX: N18.3 Chronic kidney disease, stage 3 (moderate) (principal); Z94.0 Kidney transplant status
CPT/HCPCS: 76776; 93976

== ENCOUNTER → 2019-08-01 | Outpatient (CLI) | payer MEDICARE ==
[2019-08-01 17:03] LABS: Chol/HDL Ratio 4.58; LDL Cholesterol,Calculated 59.8 mg/dL (0.0-131.0); VLDL Calculation 51.2 mg/dL (5.00-40.00)
== END | disposition home or self-care (01) ==
LOC: LABWHC1 07:52
PROVIDERS: ATTEND Internal Medicine Interventional Cardiology
DX: E78.2 Mixed hyperlipidemia (principal)
CPT/HCPCS: 36415; 80061; 84450; 84460

== ENCOUNTER 2020-02-27 15:51 | Inpatient (IN) | payer MEDICARE ==
--- NOTE | 2020-02-27 16:34 | ED ---
Skin/Abscess/FB HPI - General Source: patient Mode of arrival: ambulatory Limitations: no limitations <Debbi Perkins - Last Filed: 02/27/20 18:35> <Bessy Arias - Last Filed: 02/29/20 15:04> - General Chief complaint: Skin/Abscess/Foreign Body Stated complaint: poss bug bite/arm swelling Time Seen by Provider: 02/27/20 16:03 - History of Present Illness Initial comments: 74-year-old male patient presents to the emergency department today for evaluation of left arm redness, swelling, pain. Patient states a few days ago he started to have some swelling around the elbow region. States that he saw his physician was started on antibiotics. States that the swelling increased and he developed a bluish circular region over the elbow so he returned to his primary care physician was given another injection of antibiotics and steroids. Patient has been taking Augmentin since and the swelling is now encompassing his entire arm. States he is having tightness and pain to the elbow region. Denies any fever or chills. He does have a history of diabetes and has had a kidney transplant currently on antirejection meds. Patient denies any recent cough, shortness of breath, chest pain, abdominal pain, nausea, vomiting, diarrhea, constipation, back pain, numbness, tingling, dizziness, weakness, hematuria, dysuria, urinary urgency, urinary frequency, headache, visual changes, or any other complaints. (Debbi Perkins) - Related Data Home Medications Medication Instructions Recorded Confirmed Ergocalciferol [Vitamin D2 50,000 unit PO Q30D 01/12/15 02/27/20 (DRISDOL)] atenoloL [Tenormin] 50 mg PO HS@209901/12/15 02/27/20 Aspirin EC [Ecotrin Low Dose] 81 mg PO DAILY@89907/31/16 02/27/20 Insulin NPH Human Isophane 10 unit SQ HS@209907/31/16 02/27/20 [NovoLIN N] Insulin NPH Human Isophane 30 unit SQ AC-BRKFST@0907/31/16 02/27/20 [NovoLIN N] Tacrolimus [Prograf] 2 mg PO BID@0900,209907/31/16 02/27/20 Amoxic-Pot Clav 875-125Mg 1 tab PO BID@0900,209902/27/20 02/27/20 [Augmentin 875-125] Apixaban [Eliquis] 5 mg PO BID@0900,209902/27/20 02/27/20 Atorvastatin [Lipitor] 40 mg PO DAILY@89902/27/20 02/27/20 Everolimus 2.25 mg PO BID@0900,209902/27/20 02/27/20 Ferrous Sulfate [Iron (65 MG 325 mg PO DAILY@89902/27/20 02/27/20 Elemental)] Multivitamins, Thera [Multivitamin 1 tab PO DAILY@89902/27/20 02/27/20 (formulary)] Nitroglycerin Sl Tabs [Nitrostat] 0.4 mg SL Q5M PRN 02/27/20 02/27/20 hydrALAZINE HCL [Apresoline] 25 mg PO BID@0900,209902/27/20 02/27/20 Allergies Allergy/AdvReac Type Severity Reaction Status Date / Time No Known Allergies Allergy Verified 02/27/20 19:46 Review of Systems ROS Other: All systems not noted in ROS Statement are negative. <Debbi Perkins - Last Filed: 02/27/20 18:35> ROS Other: All systems not noted in ROS Statement are negative. <Bessy Arias - Last Filed: 02/29/20 15:04> ROS Statement: Those systems with pertinent positive or pertinent negative responses have been documented in the HPI. Past Medical History Past Medical History: Coronary Artery Disease (CAD), Chest Pain / Angina, Diabetes Mellitus, Hyperlipidemia, Hypertension, Myocardial Infarction ([place]), Renal Disease Additional Past Medical History / Comment(s): migraines, umbilical and inguinal hernia, polycystic kidney disease Last Myocardial Infarction Date:: unk History of Any Multi-Drug Resistant Organisms: None Reported Past Surgical History: Coronary Bypass/CABG, Heart Catheterization With Stent Additional Past Surgical History / Comment(s): nile nephrectomy/ kidney transplant on rt in 2002, heart cath with 2 stents, colonocsopy.polyps removed- benign Past Anesthesia/Blood Transfusion Reactions: No Reported Reaction Date of Last Stent Placement:: unk Past Psychological History: No Psychological Hx Reported Past Alcohol Use History: Occasional Past Drug Use History: None Reported - Past Family History Father Family Medical History: Cancer Additional Family Medical History / Comment(s): LUNG CANCER Mother Additional Family Medical History / Comment(s): POLYCYSTIC KIDNEY DISEASE <Debbi Perkins M - Last Filed: 02/27/20 18:35> General Exam Limitations: no limitations General appearance: alert, in no apparent distress, other (This is a well- developed, well-nourished elderly male patient in no acute distress. Vital signs upon presentation are temperature 98.7F, pulse 65, respirations 18, blood pressure 131/72, pulse ox 99% on room air.) Eye exam: Present: normal appearance, PERRL, EOMI. Absent: scleral icterus, conjunctival injection, periorbital swelling ENT exam: Present: normal exam, normal oropharynx, mucous membranes moist Respiratory exam: Present: normal lung sounds bilaterally. Absent: respiratory distress, wheezes, rales, rhonchi, stridor Cardiovascular Exam: Present: regular rate, normal rhythm, normal heart sounds. Absent: systolic murmur, diastolic murmur, rubs, gallop, clicks GI/Abdominal exam: Present: soft, normal bowel sounds. Absent: distended, tenderness, guarding, rebound, rigid Extremities exam: Present: full ROM, normal capillary refill, other (There is generalized swelling of the left arm. There is overlying erythema over the elbow and forearm. There an area of skin sloughing and some drainage over the extensor surface of the elbow. Skin is hot and firm to touch. Radial pulses 2+ and equal bilaterally.). Absent: normal inspection, tenderness, pedal edema, joint swelling, calf tenderness <Debbi Perkins M - Last Filed: 02/27/20 18:35> Course Vital Signs 02/27/20 02/27/20 02/27/20 15:57 19:38 20:00 Temperature 98.7 F 98.2 F 97.9 F Pulse Rate 65 67 Pulse Rate [ 71 Right Pulse Oximetery] Respiratory 18 17 18 Rate Blood Pressure 131/72 148/73 Blood Pressure 144/73 [Right Arm] O2 Sat by Pulse 99 100 100 Oximetry 02/27/20 20:38 Temperature Pulse Rate 69 Pulse Rate [ Right Pulse Oximetery] Respiratory 18 Rate Blood Pressure 151/67 Blood Pressure [Right Arm] O2 Sat by Pulse 99 Oximetry Medical Decision Making - Lab Data Result diagrams: 02/27/20 17:03 02/27/20 17:03 - Radiology Data Radiology results: report reviewed, image reviewed <Debbi Perkins - Last Filed: 02/27/20 18:35> - Lab Data Result diagrams: 02/29/20 06:45 02/29/20 06:45 <Bessy Arias - Last Filed: 02/29/20 15:04> - Medical Decision Making 74-year-old male patient presents to the emergency department today for evaluation of redness, swelling, pain to the left arm. There is skin sloughing noted at the left elbow. Culture was obtained. Labs reviewed and does reveal decreased white blood cell count at 1.5. Decreased hemoglobin at 9.0. Patient does have history of kidney transplant is on antirejection medication. Vital signs are stable. Lactic acid is negative. X-ray shows extensive soft tissue swelling but no evidence for gas in the subcutaneous tissues or bony abnormality. He'll be admitted to the hospital with IV antibiotics. I did discuss findings, results, plan with the patient, he is agreeable. (Debbi Perkins) I was available for consultation in the emergency department. The history and physical exam were done by the midlevel provider. I was consulted for this patients care. I reviewed the case with the midlevel provider and based on the ir presentation of the patient, I agree with the assessment, medical decision making and plan of care as documented. I evaluated the patient myself and agree to hospital admission. Patient admitted to [facility] and I discussed case with Dr. couch Chart was dictated using [employer] dictation software. Attempts were made to correct any dictation errors however some typographical errors may persist. Patient was seen during a national state of emergency due to the Covid-19 pandemic. (Bessy Arias) - Lab Data Lab Results 02/27/20 02/27/20 02/27/20 Range/Units 17:03 17:03 17:03 WBC 1.5 L (3.8-10.6) k/uL RBC 3.77 L (4.30-5.90) m/uL Hgb 9.4 L (13.0-17.5) gm/dL Hct 29.2 L (39.0-53.0) % MCV 77.4 L (80.0-100.0) fL MCH 24.8 L (25.0-35.0) pg MCHC 32.1 (31.0-37.0) g/dL RDW 17.6 H (11.5-15.5) % Plt Count 100 L (150-450) k/uL Neutrophils % 67 % Lymphocytes % 13 % Monocytes % 13 % Eosinophils % 5 % Basophils % 0 % Neutrophils # 1.0 L (1.3-7.7) k/uL Lymphocytes # 0.2 L (1.0-4.8) k/uL Monocytes # 0.2 (0-1.0) k/uL Eosinophils # 0.1 (0-0.7) k/uL Basophils # 0.0 (0-0.2) k/uL Manual Slide Review Performed Hypochromasia Slight Anisocytosis Slight Microcytosis Slight PT 12.8 H (9.0-12.0) sec INR 1.3 H (<1.2) APTT 32.7 H (22.0-30.0) sec Sodium 132 L (137-145) mmol/L Potassium 4.4 (3.5-5.1) mmol/L Chloride 106 (98-107) mmol/L Carbon Dioxide 15 L (22-30) mmol/L Anion Gap 11 mmol/L BUN 50 H (9-20) mg/dL Creatinine 2.62 H (0.66-1.25) mg/dL Est GFR (CKD-EPI)AfAm 27 (>60 ml/min/1.73 sqM) Est GFR (CKD-EPI)NonAf 23 (>60 ml/min/1.73 sqM) Glucose 110 H (74-99) mg/dL Plasma Lactic Acid Roque (0.7-2.0) mmol/L Calcium 8.4 (8.4-10.2) mg/dL Total Bilirubin 0.7 (0.2-1.3) mg/dL AST 148 H (17-59) U/L ALT 160 H (4-49) U/L Alkaline Phosphatase 293 H (38-126) U/L Total Protein 5.7 L (6.3-8.2) g/dL Albumin 2.9 L (3.5-5.0) g/dL Urine Color Urine Appearance (Clear) Urine pH (5.0-8.0) Ur Specific [place] (1.001-1.035) Urine Protein (Negative) Urine Glucose (UA) (Negative) Urine Ketones (Negative) Urine Blood (Negative) Urine Nitrite (Negative) Urine Bilirubin (Negative) Urine Urobilinogen (<2.0) mg/dL Ur Leukocyte Esterase (Negative) Urine RBC (0-5) /hpf Urine WBC (0-5) /hpf Ur Squamous Epith Cells (0-4) /hpf Amorphous Sediment (None) /hpf Urine Bacteria (None) /hpf Urine Mucus (None) /hpf Coronavirus (PCR) (Not Detected) 02/27/20 02/27/20 02/27/20 Range/Units 17:03 18:17 19:38 WBC (3.8-10.6) k/uL RBC (4.30-5.90) m/uL Hgb (13.0-17.5) gm/dL Hct (39.0-53.0) % MCV (80.0-100.0) fL MCH (25.0-35.0) pg MCHC (31.0-37.0) g/dL RDW (11.5-15.5) % Plt Count (150-450) k/uL Neutrophils % % Lymphocytes % % Monocytes % % Eosinophils % % Basophils % % Neutrophils # (1.3-7.7) k/uL Lymphocytes # (1.0-4.8) k/uL Monocytes # (0-1.0) k/uL Eosinophils # (0-0.7) k/uL Basophils # (0-0.2) k/uL Manual Slide Review Hypochromasia Anisocytosis Microcytosis PT (9.0-12.0) sec INR (<1.2) APTT (22.0-30.0) sec Sodium (137-145) mmol/L Potassium (3.5-5.1) mmol/L Chloride (98-107) mmol/L Carbon Dioxide (22-30) mmol/L Anion Gap mmol/L BUN (9-20) mg/dL Creatinine (0.66-1.25) mg/dL Est GFR (CKD-EPI)AfAm (>60 ml/min/1.73 sqM) Est GFR (CKD-EPI)NonAf (>60 ml/min/1.73 sqM) Glucose (74-99) mg/dL Plasma Lactic Acid Roque 0.9 (0.7-2.0) mmol/L Calcium (8.4-10.2) mg/dL Total Bilirubin (0.2-1.3) mg/dL AST (17-59) U/L ALT (4-49) U/L Alkaline Phosphatase (38-126) U/L Total Protein (6.3-8.2) g/dL Albumin (3.5-5.0) g/dL Urine Color Yellow Urine Appearance Cloudy (Clear) Urine pH 5.5 (5.0-8.0) Ur Specific [place] 1.022 (1.001-1.035) Urine Protein 2+ H (Negative) Urine Glucose (UA) Negative (Negative) Urine Ketones Negative (Negative) Urine Blood Small H (Negative) Urine Nitrite Negative (Negative) Urine Bilirubin Negative (Negative) Urine Urobilinogen <2.0 (<2.0) mg/dL Ur Leukocyte Esterase Negative (Negative) Urine RBC 5 (0-5) /hpf Urine WBC 4 (0-5) /hpf Ur Squamous Epith Cells <1 (0-4) /hpf Amorphous Sediment Occasional H (None) /hpf Urine Bacteria Rare H (None) /hpf Urine Mucus Rare H (None) /hpf Coronavirus (PCR) Not Detected (Not Detected) - Radiology Data 3 views of the left elbow are obtained. Report was reviewed in its entirety. 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 No fracture seen. Extensive subcutaneous edema around the elbow. (Debbi Perkins) Disposition Decision to Admit Reason: Admit from EC Decision Date: 02/27/20 Decision Time: 18:36 <Debbi Perkins - Last Filed: 02/27/20 18:35> <Bessy Arias - Last Filed: 02/29/20 15:04> Clinical Impression: Cellulitis of left arm, Failure of outpatient treatment Disposition: ADMITTED IP TO THIS [facility] Condition: Serious
[2020-02-27] MEDS ORDERED: VANCOMYCIN IV PER PHARMACY 1 EACH MISC MISCELLANE PRN (16:46)
[2020-02-27] MEDS ORDERED: VANCOMYCIN 1,250 MG in SODIUM CHLORIDE 0.9% 250 ML IVPB ONE (17:00)
[2020-02-27 17:31] LABS: Albumin 2.9 g/dL (3.5-5.0); Calcium 8.4 mg/dL (8.4-10.2); Potassium 4.4 mmol/L (3.5-5.1); Total Bilirubin 0.7 mg/dL (0.2-1.3); Total Protein 5.7 g/dL (6.3-8.2)
[2020-02-27] MEDS: SODIUM CHLORIDE 0.9% 500 ML 500 ML IV SCH ×2 (17:32→18:17)
[2020-02-27 17:37] LABS: INR 1.3 (<1.2); Partial Thromboplastin Time 32.7 sec (22.0-30.0); Prothrombin Time 12.8 sec (9.0-12.0)
[2020-02-27 17:39] LABS: Anisocytosis Slight; Basophils % (A) 0 %; Eosinophils # (A) 0.1 k/uL (0-0.7); Eosinophils % (A) 5 %; HCT 29.2 % (39.0-53.0); HGB 9.4 gm/dL (13.0-17.5); Hypochromasia Slight; Lymphocytes # (A) 0.2 k/uL (1.0-4.8); Lymphocytes % (A) 13 %; MCH 24.8 pg (25.0-35.0); MCHC 32.1 g/dL (31.0-37.0); MCV 77.4 fL (80.0-100.0); Mean Platelet Volume 9.9; Microcytosis Slight; Monocytes # (A) 0.2 k/uL (0-1.0); Monocytes % (A) 13 %; Neutrophils % (A) 67 %; Platelet Count 100 k/uL (150-450); RBC 3.77 m/uL (4.30-5.90); RDW 17.6 % (11.5-15.5); WBC 1.5 k/uL (3.8-10.6)
--- NOTE | 2020-02-27 18:17 | XR ---
EXAMINATION TYPE: XR elbow complete LT DATE OF EXAM: 02/27/2020 COMPARISON: NONE HISTORY: Infection. Pain. TECHNIQUE: 3 views FINDINGS: There is subcutaneous edema around the lower humerus. Also edema around the proximal forear m. Elbow joint spaces are narrowed. There is spurring of the radial head and the humeral condyles. Th ere is spurring on the proximal ulna. I see no definite joint effusion. IMPRESSION: Moderate osteoarthritis. No fracture seen. Extensive subcutaneous edema around the elbow.
[2020-02-27 18:55] LABS: Amorphous Sediment,Urine Occasional /hpf; Appearance,Urine Cloudy (Clear); Bacteria,Urine Rare /hpf; Bilirubin,Urine Negative (Negative); Blood,Urine Small (Negative); Color,Urine Yellow; Glucose,Urine (UA) Negative (Negative); Ketones,Urine Negative (Negative); Leukocyte Esterase,Urine Negative (Negative); Mucus,Urine Rare /hpf; Nitrite,Urine Negative (Negative); PH, Urine 5.5 (5.0-8.0); Protein,Urine 2+ (Negative); RBC,Urine 5 /hpf (0-5); Specific Gravity,Urine 1.022 (1.001-1.035); Squamous Epithelial Cell,Urine <1 /hpf (0-4); Urobilinogen,Urine <2.0 mg/dL (<2.0); WBC,Urine 4 /hpf (0-5)
[2020-02-27] MEDS ORDERED: HYDROmorphone 0.5 MG/0.5 ML SYRINGE IVP PRN (19:40)
[2020-02-27] MEDS ORDERED: NALOXONE 0.4 MG/ML 1 ML VIAL IV PRN (19:40)
[2020-02-27 21:42] LABS: Glucose,Whole Blood 118 mg/dL (75-99)
[2020-02-27] MEDS: ZORTRESS 0.75 MG PO SCH (23:01)
[2020-02-27] MEDS: atenoloL 50 MG TAB PO SCH (23:08)
[2020-02-27] MEDS: APIXABAN 5 MG TAB PO SCH (23:08)
[2020-02-27] MEDS: hydrALAZINE HCL 25 MG TAB PO SCH (23:08)
[2020-02-27] MEDS: TACROLIMUS 1 MG CAP PO SCH (23:46)
[2020-02-27] MEDS: INSULIN NPH 300 UNIT/3 ML VIAL SQ SCH (23:46)
[2020-02-28] MEDS: CEFEPIME 1 GM in SODIUM CHLORIDE 0.9% 50 ML IVPB SCH ×3 (00:35→23:24)
--- NOTE | 2020-02-28 02:29 | HP ---
HISTORY AND PHYSICAL CHIEF COMPLAINTS: Pain and swelling of the left arm. HISTORY OF PRESENT ILLNESS: This 74-year-old gentleman with a past medical history of multiple medical problems including history of CAD, CABG, stent, history of diabetes type 2, hypertension, hyperlipidemia, myocardial infarction, history of migraines, history of polycystic kidney disease being followed by Dr. Aiyana De Los Santos in the outpatient setting, apparently was bitten by a bug while working outside a few days ago. The patient has some swelling in the elbow region and subsequently patient started on antibiotics but the pain and swelling increased. The patient unable to move the arm and the patient was also given a different antibiotic and steroids also. The patient has been taking Augmentin, but because of lack of improvement and tightness, the patient came to [facility] and admitted for further evaluation and treatment. There is no history of any fever or rigors. No history of headache, loss of consciousness, seizures. Patient had pancytopenia. Otherwise, sodium is 132, creatinine is 2.62. LFTs also elevated. PAST MEDICAL HISTORY: History of CAD, CABG, history of diabetes type 2, hypertension, history of myocardial infarction, renal disease. MEDICATIONS: Home medications are: 1. Hydralazine. 2. Tenormin. 3. Prograf. 4. Nitrostat. 5. Novolin. 6. Iron. 7. Everolimus. 8. Vitamin D2. 9. Lipitor. 10.Aspirin. 11.Eliquis. 12.Augmentin b.i.d. ALLERGIES: None. FAMILY HISTORY: History of lung cancer in the family. SOCIAL HISTORY: No history of smoking. No history of alcohol intake. REVIEW OF SYSTEMS: ENT: No diminished hearing or diminished vision. CARDIOVASCULAR SYSTEM: As mentioned earlier. RESPIRATORY SYSTEM: As mentioned earlier. GI: No nausea. : No dysuria. NERVOUS SYSTEM: No numbness or weakness. ALLERGY/IMMUNOLOGY: No asthma or hay fever. MUSCULOSKELETAL: As mentioned earlier. HEMATOLOGY: As mentioned earlier. ENDOCRINE: Diabetes mellitus. CONSTITUTIONAL: As mentioned earlier. DERMATOLOGY: Negative. RHEUMATOLOGY: Negative. PSYCHIATRY: As mentioned earlier. PHYSICAL EXAMINATION: The patient is alert and oriented x3. Pulse 69, blood pressure 151/67, respiration 18, temperature 97.9, pulse ox 100% on room air. HEENT: Conjunctivae normal. Oral mucosa moist. NECK: No jugular venous distention. No carotid bruit. No lymph node enlargement. CARDIOVASCULAR: S1, S2 muffled. RESPIRATORY: Breath sounds diminished bilaterally. No rhonchi, no crackles. ABDOMEN: Soft, nontender. No mass palpable. LEGS: No edema, no swelling. NERVOUS SYSTEM: Higher functions as mentioned earlier. Moves all 4 limbs. No focal deficits. LYMPHATICS: No lymphadenopathy of the neck, axillae or groin. SKIN: Shiny skin on the left arm. EXAMINATION OF LEFT ARM: Significant pain and swelling and erythema, infection the left elbow with some erythema also present. LABS: WBC 1.5, hemoglobin 9.4 and platelets 100. Sodium 132 and creatinine is 2.62. LFTs are noted. ASSESSMENT: 1. Acute severe cellulitis of the left elbow and left forearm and upper arm with possible early sepsis. 2. Pancytopenia of undetermined etiology. 3. Hyponatremia. 4. Increased creatinine with chronic kidney disease stage 3. 5. Elevated AST, ALT, possibly hepatitis. 6. Hypoalbuminemia with mild protein calorie malnutrition. 7. History of coronary artery disease, coronary artery bypass grafting, stent. 8. History of diabetes type 2. 9. Hypertension. 10.Hyperlipidemia. 11.History of migraines. 12.History of umbilical hernia. 13.History of polycystic kidney disease. 14.History of nephrectomy and kidney transplant in 2002. 15.FULL CODE. RECOMMENDATIONS AND DISCUSSION: This 74-year-old gentleman who presented with multiple complex medical issues, we will monitor the patient closely. Continue the current medications. Continue symptomatic treatment. Will initiate broad-spectrum IV antibiotics and cultures. Otherwise, I would recommend infectious disease evaluation, nephrology evaluation, orthopedic evaluation. Guarded prognosis because of multiple complex medical issues. Resume home medications and further recommendations to follow. A copy of dictation forwarded to Dr. Aiyana De Los Santos who is the primary physician. MMODL / IJN: [id number] /
[2020-02-28 07:08] LABS: Glucose,Whole Blood 77 mg/dL (75-99)
[2020-02-28 07:57] LABS: Albumin 3.2 g/dL (3.5-5.0); Calcium 8.7 mg/dL (8.4-10.2); Potassium 4.6 mmol/L (3.5-5.1); Total Bilirubin 0.8 mg/dL (0.2-1.3); Total Protein 6.5 g/dL (6.3-8.2)
[2020-02-28 08:15] LABS: Anisocytosis Slight; HCT 30.3 % (39.0-53.0); HGB 9.5 gm/dL (13.0-17.5); Hypochromasia Slight; MCH 24.7 pg (25.0-35.0); MCHC 31.5 g/dL (31.0-37.0); MCV 78.6 fL (80.0-100.0); Mean Platelet Volume 10.2; Microcytosis Slight; Platelet Count 110 k/uL (150-450); RBC 3.86 m/uL (4.30-5.90); RDW 17.6 % (11.5-15.5); WBC 1.8 k/uL (3.8-10.6)
[2020-02-28] MEDS: ASPIRIN 81 MG PO SCH (08:22)
[2020-02-28] MEDS: hydrALAZINE HCL 25 MG TAB PO SCH ×2 (08:23→22:33)
[2020-02-28] MEDS: FERROUS SULFATE 325 MG TAB PO SCH (08:23)
[2020-02-28] MEDS: APIXABAN 5 MG TAB PO SCH ×2 (08:23→22:33)
[2020-02-28] MEDS: TACROLIMUS 1 MG CAP PO SCH ×2 (08:24→23:00)
[2020-02-28] MEDS: MULTIVITAMINS, THERA 1 EACH TAB PO SCH (08:24)
[2020-02-28] MEDS: INSULIN NPH 300 UNIT/3 ML VIAL SQ SCH ×2 (08:27→22:59)
[2020-02-28] MEDS ORDERED: ATORVASTATIN 40 MG TAB PO SCH (09:00)
[2020-02-28] MEDS: ZORTRESS 0.75 MG PO SCH ×2 (09:46→21:00)
[2020-02-28 10:36] LABS: Eosinophils # (M) 0.04 k/uL (0-0.7); Lymphocytes # (M) 0.11 k/uL (1.0-4.8); Monocytes # (M) 0.32 k/uL (0-1.0); Neutrophils # (M) 1.33 k/uL (1.3-7.7); Neutrophils % (M) 74 %; Nucleated Red Blood Cells 0 /100 WBC (0-0); Total Cells Counted 100
[2020-02-28 10:39] LABS: Poikilocytosis (M) Present
[2020-02-28] MEDS ORDERED: VANCOMYCIN 1,250 MG in SODIUM CHLORIDE 0.9% 250 ML IVPB ONE (11:00)
[2020-02-28 11:41] LABS: Glucose,Whole Blood 123 mg/dL (75-99)
--- NOTE | 2020-02-28 15:04 | PN ---
PROGRESS NOTE DATE OF SERVICE: 02/28/2020 This 74-year-old gentleman presents for significant infection of the left arm and significant swelling. The patient also had multiple complex medical issues including pancytopenia as well as history of renal transplant, also multiple consultants following the patient closely. Patient is on broad-spectrum IV antibiotics. Cultures are pending at this time. The patient also had some drainage on the left elbow also in the outpatient setting. PAST MEDICAL HISTORY: Reviewed. REVIEW OF SYSTEMS: CARDIOVASCULAR SYSTEM: No angina. RESPIRATION: As mentioned earlier. GI: As mentioned earlier. : As mentioned earlier. NERVOUS SYSTEM: No numbness or weakness. CURRENT MEDICATIONS: Include: Eliquis 5 mg p.o. b.i.d., aspirin 81 mg, Tenormin, Lipitor, cefepime 1 g IV b.i.d., iron sulfate, Apresoline, Dilaudid, Humulin, multivitamins, Narcan, Prograf, everolimus. PHYSICAL EXAM: Patient is alert and oriented x3. Pulse 67, blood pressure 136/67, respiration 18, temperature 99.4, pulse ox 97% on room air. CARDIOVASCULAR: S1, S2, muffled. RESPIRATORY: Breath sounds diminished at the bases. No rhonchi, no crackles. ABDOMEN: Soft and nontender. LEGS: No edema. Left arm significant swelling and erythema. Pain, tenderness and diminished movement of the elbow present, some drainage area. Some fluid-filled blebs also present. SKIN: As mentioned earlier. LAB STUDIES: WBC is 1.8, hemoglobin is 9.4, platelets I 10, and CO2 is 12 and creatinine is 2.49. AST is 115, ALT is 154. ASSESSMENT: 1. Acute severe cellulitis of the left elbow and left forearm with upper arm, with possible early sepsis present on admission. 2. Pancytopenia of undetermined etiology and neutropenic sepsis. 3. Hyponatremia. 4. Metabolic acidosis. 5. Increased creatinine with chronic kidney disease, stage 3. 6. Significant swelling of the left arm. 7. Elevated AST, ALT possibly hepatitis. 8. Hypoalbuminemia with mild protein calorie malnutrition. 9. History of CAD, CABG, stent. 10.History of diabetes mellitus type 2. 11.Hypertension. 12.History of migraine. 13.History umbilical hernia. 14.History of polycystic kidney disease. 15.History nephrectomy and kidney transplant 2002. 16.FULL CODE. RECOMMENDATION: I recommend to continue current management and continue symptomatic treatment. Continue with the broad-spectrum IV antibiotics. Monitor creatinine closely. Otherwise, follow the cultures, repeat labs. Nephrology has been consulted. I would also consult Orthopedic surgery also. The prognosis guarded because of multiple complex medical issues. Further recommendations to follow. See orders for details. This patient also will require a full admit for more than 2 nights hospital stay to diagnose and treat the above-mentioned potential life-threatening complications. MMODL / IJN: [id number] /
--- NOTE | 2020-02-28 15:59 | US ---
EXAMINATION TYPE: US venous doppler duplex UE LT DATE OF EXAM: 02/28/2020 COMPARISON: NONE CLINICAL HISTORY: Concern for DVT. Probable spider bite one week ago, swollen, red left arm, no h/o d vt, on thinners for A-fib SIDE PERFORMED: Left Left Arm: Negative for DVT. Grayscale, color doppler, spectral doppler imaging performed of the deep veins of the upper extremities. There is normal flow, compressibility, and vascular waveforms. IMPRESSION: No DVT of the left upper extremity.
[2020-02-28] MEDS: DEXTROSE 5% IN WATER 1,000 ML with SODIUM BICARB (1 MEQ/ML) 150 ML IV SCH (16:00)
[2020-02-28 17:04] LABS: Glucose,Whole Blood 148 mg/dL (75-99)
[2020-02-28] MEDS: DAPTOmycin 500 MG in SODIUM CHLORIDE 0.9% 50 ML IVPB SCH (17:32)
--- NOTE | 2020-02-28 20:10 | CONS ---
CONSULTATION REASON FOR CONSULT: Renal transplant and renal failure. HISTORY OF PRESENT ILLNESS: The patient is a 74-year-old male with a history of end-stage renal disease, status post living-related renal transplant in 2002 with baseline creatinine about 1.8 to 1.6 mg/dL. The patient was admitted to the hospital with pain and swelling and redness in his left forearm. The patient states he was working outside last week and noticed a bump and redness on his elbow which progressively worsened over the last 4 to 5 days. Patient was started on Augmentin as outpatient by his PCP. However, the infection continued to worsen. He did not have any fever, chills, nausea, vomiting, abdominal pain or diarrhea. The patient denied use of any nonsteroidal anti-inflammatory agents. Patient is currently maintained on cefepime. He did get a dose of vancomycin as well. He states the pain has improved. Serum creatinine was 2.49 today. It was 2.6 yesterday. PAST MEDICAL HISTORY: Past medical history is significant for end-stage renal disease, history of kidney transplant, type 2 diabetes, coronary artery disease, [place], history of polycystic kidney disease. PAST SURGICAL HISTORY: Coronary artery bypass surgery, cardiac catheterization, coronary stent placement, bilateral nephrectomy, renal transplant, removal of polyps and colonoscopy. SOCIAL HISTORY: Negative for smoking, drug abuse or alcohol abuse. MEDICATIONS: Medications at home prior to admission included prednisone, Prograf, Bactrim, sodium bicarb, Imdur, omeprazole, insulin, aspirin, Lipitor, atenolol, Valcyte, nitroglycerin. ALLERGIES: NONE. REVIEW OF SYSTEMS: As per HPI. Other systems negative. PHYSICAL EXAMINATION: Patient is currently comfortable, awake, alert, oriented x3, not in any acute distress. Blood pressure was 130/67, heart rate 65 per minute. He is afebrile. EXAMINATION OF THE HEART: S1 and S2. EXAMINATION OF LUNGS: Bilateral breath sounds are heard. ABDOMEN: Soft, non-tender. Examination of lower extremities shows no evidence of edema. There is significant redness and swelling in his left forearm. The elbow area is currently wrapped. SLACK [employer] YARDER exam is grossly intact. LABS: Labs show sodium of 137, potassium 4.6, chloride 111. CO2 is 12, BUN 48, creatinine 2.49. Uric acid at 7.7. Vancomycin level 8.8. UA shows 2+ protein, small blood, WBCs 4. Wound culture is currently pending. ASSESSMENT: 1. Acute kidney injury associated with underlying infection and possibly prerenal as well. Currently nonoliguric. Continue with IV hydration. Continue with antibiotics. 2. Status post living-related renal transplant in 2002 with baseline creatinine 1.8 mg/dL. Currently maintained on Prograf, everolimus. I am not sure if patient was on Bactrim recently. It is usually one of the early post-transplant medications. 3. Cellulitis, left forearm and elbow area, maintained on IV antibiotics. Wound culture is pending. 4. History of coronary artery disease, status post coronary artery bypass surgery. 5. 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 6. History of polycystic kidney disease, status post bilateral nephrectomy and kidney transplant. 7. Metabolic acidosis, mild gap, mostly non gap, associated with worsening renal failure. No diarrhea reported per patient. PLAN: Continue with the Prograf and the everolimus. Start patient on IV bicarb. Continue IV antibiotics. Check Prograf level in a.m. and repeat labs in a.m. Continue to avoid nephrotoxic medications. Thank you for this consultation. Will continue to follow the patient with you during his hospitalization. MMODL / IJN: [id number] /
[2020-02-28 20:22] LABS: Hepatitis A Antibody IgM Non-Reactive (Non-Reactive); Hepatitis B Core IgM Non-Reactive (Non-Reactive); Hepatitis B Surface Antigen Non-Reactive (Non-Reactive); Hepatitis C IgG Antibody Non-Reactive (Non-Reactive)
[2020-02-28 21:33] LABS: Glucose,Whole Blood 140 mg/dL (75-99)
--- NOTE | 2020-02-28 21:57 | P.CONS ---
History of Present Illness - Reason for Consult Consult date: 02/28/20 Left upper extremity cellulitis Requesting physician: Landon Strickland - Chief Complaint Left arm pain swelling or redness x few days - History of Present Illness Patient is 74-year-old male with a past medical history significant for end-stage renal disease status post living related renal transplant at [facility], patient is presented to [facility] ER with chief complaints of left upper extremity pain swelling redness at the beginning was last 4-5 days apparently the patient noticed to have some area of irritation to the left elbow area that he may have scratched as he was working outside last week the area of swelling redness subsequently Progressed subsequent water most of the left forearm especially dorsum area patient with some dull aching pain 2- 3 refill and no radiation may symptom has been diffuse swelling and redness have small wound of the left elbow with some minimal drainage no foul-smelling denies high-grade fever on the Route via the patient was afebrile the patient was initially decubiti with a white count of 1.8 he also have elevated creatinine of 2.46 patient did receive a dose of vancomycin has been continuous cefepime and infectious disease was consulted for further management of antibiotic therapy patient did have x-rays of the left elbow which did not show any bony changes did show extensive soft tissue edema and ultrasound of the left upper extremity did not show any DVT, patient is currently immunocompromised receiving immunosuppressive medication post renal transplant with no change in his medication recently , patient has been treated for his cellulitis of his oral Augmentin by his primary care physician without any significant improvement Review of Systems Positive point has been mentioned in the HPI rest of the systems are negative Past Medical History Past Medical History: Coronary Artery Disease (CAD), Chest Pain / Angina, Diabetes Mellitus, Hyperlipidemia, Hypertension, Myocardial Infarction (OR), Renal Disease Additional Past Medical History / Comment(s): migraines, umbilical and inguinal hernia, polycystic kidney disease Last Myocardial Infarction Date:: unk History of Any Multi-Drug Resistant Organisms: None Reported Past Surgical History: Coronary Bypass/CABG, Heart Catheterization With Stent Additional Past Surgical History / Comment(s): nile nephrectomy/ kidney transplant on rt in 2002, heart cath with 2 stents, colonocsopy.polyps removed- benign Past Anesthesia/Blood Transfusion Reactions: No Reported Reaction Date of Last Stent Placement:: 2013 Past Psychological History: No Psychological Hx Reported Additional Psychological History / Comment(s): PT LIVES AT HOME WITH HIS KAIL, RETIRED FROM [employer] AFTER 42 YEARS AND SERVED IN THE [employer] WHEN YOUNGER. 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 Smoking Status: Never smoker Past Alcohol Use History: Occasional Past Drug Use History: None Reported - Past Family History Father Family Medical History: Cancer Additional Family Medical History / Comment(s): LUNG CANCER Mother Additional Family Medical History / Comment(s): POLYCYSTIC KIDNEY DISEASE Medications and Allergies Home Medications Medication Instructions Recorded Confirmed Type Ergocalciferol [Vitamin D2 50,000 unit PO Q30D 01/12/15 02/27/20 History (DRISDOL)] atenoloL [Tenormin] 50 mg PO HS@209901/12/15 02/27/20 History Aspirin EC [Ecotrin Low Dose] 81 mg PO DAILY@89907/31/16 02/27/20 History Insulin NPH Human Isophane 10 unit SQ HS@209907/31/16 02/27/20 History [NovoLIN N] Insulin NPH Human Isophane 30 unit SQ AC-BRKFST@89907/31/16 02/27/20 History [NovoLIN N] Tacrolimus [Prograf] 2 mg PO BID@0900,209907/31/16 02/27/20 History Amoxic-Pot Clav 875-125Mg 1 tab PO BID@0900,209902/27/20 02/27/20 History [Augmentin 875-125] Apixaban [Eliquis] 5 mg PO BID@0900,209902/27/20 02/27/20 History Atorvastatin [Lipitor] 40 mg PO DAILY@89902/27/20 02/27/20 History Everolimus 2.25 mg PO BID@0900,209902/27/20 02/27/20 History Ferrous Sulfate [Iron (65 MG 325 mg PO DAILY@89902/27/20 02/27/20 History Elemental)] Multivitamins, Thera [Multivitamin 1 tab PO DAILY@89902/27/20 02/27/20 History (formulary)] Nitroglycerin Sl Tabs [Nitrostat] 0.4 mg SL Q5M PRN 02/27/20 02/27/20 History hydrALAZINE HCL [Apresoline] 25 mg PO BID@0900,2100 02/27/20 02/27/20 History Allergies Allergy/AdvReac Type Severity Reaction Status Date / Time No Known Allergies Allergy Verified 02/27/20 19:46 Physical Exam Vitals: Vital Signs Temp Pulse Pulse Resp BP BP Pulse Ox 02/28/20 08:48 99.4 F 67 18 136/67 97 02/28/20 03:00 98.9 F 65 18 130/67 97 02/27/20 21:00 97.9 F 71 17 144/73 100 02/27/20 20:38 69 18 151/67 99 02/27/20 20:00 97.9 F 71 18 144/73 100 02/27/20 19:38 98.2 F 67 17 148/73 100 02/27/20 15:57 98.7 F 65 18 131/72 99 Intake and Output 02/27/20 02/28/20 02/28/20 22:59 06:59 14:59 Intake Total 300 150 Balance 300 150 Intake: Oral 300 150 Other: Voiding Method Toilet Toilet # Voids 1 2 Weight 74.843 kg GENERAL DESCRIPTION: Elderly male lying in bed, no distress. No tachypnea or accessory muscle of respiration use. HEENT: Shows Pallor , no scleral icterus. Oral mucous membrane is dry. No pha ryngeal erythema or thrush NECK: Trachea central, no thyromegaly. LUNGS: Unlabored breathing. Clear to auscultation anteriorly. No wheeze or crackle. HEART: S1, S2, regular rate and rhythm. No loud murmur ABDOMEN: Soft, no tenderness , guarding or rigidity, no organomegaly EXTREMITIES: Left upper extremity with significant swelling and redness is some superficial wound at the elbow area minimal fluctuance and no drainage SKIN: No rash, no masses palpable. NEUROLOGICAL: The patient is awake, alert, oriented x3, mood and affect normal. Results CBC & Chem 7: 02/28/20 06:48 02/28/20 06:48 Labs: Abnormal Lab Results - Last 24 Hours (Table) 02/27/20 02/27/20 02/27/20 Range/Units 17:03 17:03 17:03 WBC 1.5 L (3.8-10.6) k/uL RBC 3.77 L (4.30-5.90) m/uL Hgb 9.4 L (13.0-17.5) gm/dL Hct 29.2 L (39.0-53.0) % MCV 77.4 L (80.0-100.0) fL MCH 24.8 L (25.0-35.0) pg RDW 17.6 H (11.5-15.5) % Plt Count 100 L (150-450) k/uL Neutrophils # 1.0 L (1.3-7.7) k/uL Lymphocytes # 0.2 L (1.0-4.8) k/uL Lymphocytes # (Manual) (1.0-4.8) k/uL PT 12.8 H (9.0-12.0) sec INR 1.3 H (<1.2) APTT 32.7 H (22.0-30.0) sec Sodium 132 L (137-145) mmol/L Chloride (98-107) mmol/L Carbon Dioxide 15 L (22-30) mmol/L BUN 50 H (9-20) mg/dL Creatinine 2.62 H (0.66-1.25) mg/dL Glucose 110 H (74-99) mg/dL POC Glucose (mg/dL) (75-99) mg/dL AST 148 H (17-59) U/L ALT 160 H (4-49) U/L Alkaline Phosphatase 293 H (38-126) U/L Total Protein 5.7 L (6.3-8.2) g/dL Albumin 2.9 L (3.5-5.0) g/dL Urine Protein (Negative) Urine Blood (Negative) Amorphous Sediment (None) /hpf Urine Bacteria (None) /hpf Urine Mucus (None) /hpf 02/27/20 02/27/20 02/28/20 Range/Units 18:17 21:38 06:48 WBC 1.8 L (3.8-10.6) k/uL RBC 3.86 L (4.30-5.90) m/uL Hgb 9.5 L (13.0-17.5) gm/dL Hct 30.3 L (39.0-53.0) % MCV 78.6 L (80.0-100.0) fL MCH 24.7 L (25.0-35.0) pg RDW 17.6 H (11.5-15.5) % Plt Count 110 L (150-450) k/uL Neutrophils # (1.3-7.7) k/uL Lymphocytes # (1.0-4.8) k/uL Lymphocytes # (Manual) 0.11 L (1.0-4.8) k/uL PT (9.0-12.0) sec INR (<1.2) APTT (22.0-30.0) sec Sodium (137-145) mmol/L Chloride (98-107) mmol/L Carbon Dioxide (22-30) mmol/L BUN (9-20) mg/dL Creatinine (0.66-1.25) mg/dL Glucose (74-99) mg/dL POC Glucose (mg/dL) 118 H (75-99) mg/dL AST (17-59) U/L ALT (4-49) U/L Alkaline Phosphatase (38-126) U/L Total Protein (6.3-8.2) g/dL Albumin (3.5-5.0) g/dL Urine Protein 2+ H (Negative) Urine Blood Small H (Negative) Amorphous Sediment Occasional H (None) /hpf Urine Bacteria Rare H (None) /hpf Urine Mucus Rare H (None) /hpf 02/28/20 02/28/20 Range/Units 06:48 11:39 WBC (3.8-10.6) k/uL RBC (4.30-5.90) m/uL Hgb (13.0-17.5) gm/dL Hct (39.0-53.0) % MCV (80.0-100.0) fL MCH (25.0-35.0) pg RDW (11.5-15.5) % Plt Count (150-450) k/uL Neutrophils # (1.3-7.7) k/uL Lymphocytes # (1.0-4.8) k/uL Lymphocytes # (Manual) (1.0-4.8) k/uL PT (9.0-12.0) sec INR (<1.2) APTT (22.0-30.0) sec Sodium (137-145) mmol/L Chloride 111 H (98-107) mmol/L Carbon Dioxide 12 L (22-30) mmol/L BUN 48 H (9-20) mg/dL Creatinine 2.49 H (0.66-1.25) mg/dL Glucose (74-99) mg/dL POC Glucose (mg/dL) 123 H (75-99) mg/dL AST 115 H (17-59) U/L ALT 154 H (4-49) U/L Alkaline Phosphatase 310 H (38-126) U/L Total Protein (6.3-8.2) g/dL Albumin 3.2 L (3.5-5.0) g/dL Urine Protein (Negative) Urine Blood (Negative) Amorphous Sediment (None) /hpf Urine Bacteria (None) /hpf Urine Mucus (None) /hpf Microbiology - Last 24 Hours (Table) 02/27/20 17:51 Gram Stain - Preliminary Elbow - Left Wound Culture - Preliminary Assessment and Plan Assessment: 1- patient presented to hospital with acute pain swelling and redness to the left upper extremity started with an area of irritation to the left elbow area clinical concern is for septic left elbow olecranon bursitis that seems to have failed outpatient oral Augmentin therapy with concern for possible gram-positive skin manas such as staph and will need to cover for community associated MRSA 2- patient with renal insufficiency at high risk of nephrotoxicity from the vancomycin 3- immunosuppression from the current immunosuppressive medication for his renal transplant (1) Septic olecranon bursitis of left elbow Current Visit: Yes Status: Acute Code(s): M71.122 - OTHER INFECTIVE BURSITIS, LEFT ELBOW SNOMED Code(s): 1769277886045917 (2) Cellulitis of left arm Current Visit: Yes Status: Acute Code(s): L03.114 - CELLULITIS OF LEFT UPPER LIMB SNOMED Code(s): 027808695 Plan: 1- discontinue vancomycin 2-daptomycin 500 mg IV every 48 hours, dose adjusted again function 3- cefepime 1 g every 12 hours 4-orthopedics evaluation for possible bursectomy and deep culture We will follow on clinical condition and cultures to further adjust medication if needed Thank you for this consultation will follow this patient with you Time with Patient: Greater than 30
[2020-02-28] MEDS: atenoloL 50 MG TAB PO SCH (22:33)
[2020-02-29] MEDS: DEXTROSE 5% IN WATER 1,000 ML with SODIUM BICARB (1 MEQ/ML) 150 ML IV SCH ×2 (05:56→20:39)
[2020-02-29 06:54] LABS: Glucose,Whole Blood 98 mg/dL (75-99)
[2020-02-29 07:34] LABS: Albumin 2.8 g/dL (3.5-5.0); Calcium 8.4 mg/dL (8.4-10.2); Potassium 4.6 mmol/L (3.5-5.1); Total Bilirubin 0.6 mg/dL (0.2-1.3); Total Protein 5.7 g/dL (6.3-8.2)
[2020-02-29 07:46] LABS: Anisocytosis Slight; Basophils % (A) 1 %; Eosinophils # (A) 0.1 k/uL (0-0.7); Eosinophils % (A) 5 %; HCT 29.8 % (39.0-53.0); HGB 9.2 gm/dL (13.0-17.5); Hypochromasia Moderate; Lymphocytes # (A) 0.2 k/uL (1.0-4.8); Lymphocytes % (A) 13 %; MCH 24.9 pg (25.0-35.0); MCHC 30.9 g/dL (31.0-37.0); MCV 80.6 fL (80.0-100.0); Mean Platelet Volume 9.3; Microcytosis Slight; Monocytes # (A) 0.2 k/uL (0-1.0); Monocytes % (A) 10 %; Neutrophils # (A) 1.1 k/uL (1.3-7.7); Neutrophils % (A) 68 %; Platelet Count 122 k/uL (150-450); RDW 17.5 % (11.5-15.5); WBC 1.6 k/uL (3.8-10.6)
[2020-02-29] MEDS: MULTIVITAMINS, THERA 1 EACH TAB PO SCH (07:46)
[2020-02-29] MEDS: ASPIRIN 81 MG PO SCH (07:46)
[2020-02-29] MEDS: APIXABAN 5 MG TAB PO SCH ×2 (07:46→20:22)
[2020-02-29] MEDS: hydrALAZINE HCL 25 MG TAB PO SCH ×2 (07:46→20:41)
[2020-02-29] MEDS: FERROUS SULFATE 325 MG TAB PO SCH (07:47)
[2020-02-29] MEDS: TACROLIMUS 1 MG CAP PO SCH ×2 (07:47→20:42)
[2020-02-29] MEDS: ZORTRESS 0.75 MG PO SCH ×2 (07:47→20:42)
[2020-02-29] MEDS: INSULIN NPH 300 UNIT/3 ML VIAL SQ SCH ×2 (07:48→20:42)
[2020-02-29] MEDS: CEFEPIME 1 GM in SODIUM CHLORIDE 0.9% 50 ML IVPB SCH ×2 (11:12→23:47)
[2020-02-29 11:50] LABS: Glucose,Whole Blood 137 mg/dL (75-99)
--- NOTE | 2020-02-29 11:57 | US ---
EXAMINATION TYPE: US kidneys/renal and bladder DATE OF EXAM: 02/29/2020 COMPARISON: NONE CLINICAL HISTORY: transplant kidney. EXAM MEASUREMENTS: Right Kidney: Surgically absent Left Kidney: Surgically absent Transplant Kidney: Transplant kidney Renal artery: 114cm/s Renal vein: patent Arcuate arteries resistive index : 0.64 Prominent collecting system. Bladder: not fully distended, wnl as seen IMPRESSION: 1. Transplant kidney within the left pelvis appears within normal limits.
--- NOTE | 2020-02-29 13:45 | P.CNOR ---
History of Present Illness - HPI Consult date: 02/29/20 History of present illness: This is a 74-year-old male who is admitted for cellulitis of the left upper extremity. Patient states that this started about 1 week ago with swelling over the left elbow. Patient states that in the following few days he noticed redness and an increase in swelling. Patient states that the elbow was also draining fluid at one time. Patient states that he was on oral antibiotics, but did not have any improvement. Patient denies any injury. Patient states that his pain is well-controlled. Patient's past medical history is significant for ESRD with renal transplant, diabetes mellitus, hyperlipidemia, hypertension and coronary artery disease. Patient is currently on immunosuppressant medications due to renal transplant. Patient denies any fever/chills, numbness, weakness or tingling Review of Systems See HPI. Past Medical History Past Medical History: Coronary Artery Disease (CAD), Chest Pain / Angina, Diabetes Mellitus, Hyperlipidemia, Hypertension, Myocardial Infarction (ME), Renal Disease Additional Past Medical History / Comment(s): migraines, umbilical and inguinal hernia, polycystic kidney disease Last Myocardial Infarction Date:: unk History of Any Multi-Drug Resistant Organisms: None Reported Past Surgical History: Coronary Bypass/CABG, Heart Catheterization With Stent Additional Past Surgical History / Comment(s): nile nephrectomy/ kidney transplant on rt in 2002, heart cath with 2 stents, colonocsopy.polyps removed- benign Past Anesthesia/Blood Transfusion Reactions: No Reported Reaction Date of Last Stent Placement:: 2013 Past Psychological History: No Psychological Hx Reported Additional Psychological History / Comment(s): PT LIVES AT HOME WITH HIS KALI, RETIRED FROM [employer] AFTER 42 YEARS AND SERVED IN THE [employer] WHEN YOUNGER. 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 Smoking Status: Never smoker Past Alcohol Use History: Occasional Past Drug Use History: None Reported - Past Family History Father Family Medical History: Cancer Additional Family Medical History / Comment(s): LUNG CANCER Mother Additional Family Medical History / Comment(s): POLYCYSTIC KIDNEY DISEASE Medications and Allergies Home Medications Medication Instructions Recorded Confirmed Type Ergocalciferol [Vitamin D2 50,000 unit PO Q30D 01/12/15 02/27/20 History (DRISDOL)] atenoloL [Tenormin] 50 mg PO HS@2100 01/12/15 02/27/20 History Aspirin EC [Ecotrin Low Dose] 81 mg PO DAILY@89907/31/16 02/27/20 History Insulin NPH Human Isophane 10 unit SQ HS@209907/31/16 02/27/20 History [NovoLIN N] Insulin NPH Human Isophane 30 unit SQ AC-BRKFST@89907/31/16 02/27/20 History [NovoLIN N] Tacrolimus [Prograf] 2 mg PO BID@09,209907/31/16 02/27/20 History Amoxic-Pot Clav 875-125Mg 1 tab PO BID@0900,209902/27/20 02/27/20 History [Augmentin 875-125] Apixaban [Eliquis] 5 mg PO BID@0900,209902/27/20 02/27/20 History Atorvastatin [Lipitor] 40 mg PO DAILY@89902/27/20 02/27/20 History Everolimus 2.25 mg PO BID@0900,209902/27/20 02/27/20 History Ferrous Sulfate [Iron (65 MG 325 mg PO DAILY@89902/27/20 02/27/20 History Elemental)] Multivitamins, Thera [Multivitamin 1 tab PO DAILY@89902/27/20 02/27/20 History (formulary)] Nitroglycerin Sl Tabs [Nitrostat] 0.4 mg SL Q5M PRN 02/27/20 02/27/20 History hydrALAZINE HCL [Apresoline] 25 mg PO BID@0900,209902/27/20 02/27/20 History Allergies Allergy/AdvReac Type Severity Reaction Status Date / Time No Known Allergies Allergy Verified 02/27/20 19:46 Physical Examination On exam patient is lying comfortably in bed in no acute distress. Patient is alert and oriented x3 and well-appearing. There is erythema and swelling over the left elbow. Swelling extends to the left forearm. There is a wound over the olecranon process, but there is no active drainage. Patient has good range of motion of the left elbow without pain. The left upper extremity is warm and well perfused. Patient has good range of motion of the left wrist and hand. Sensation intact. Neurovascular status and circulatory status are intact. Results An x-ray of the left elbow is negative for any fracture or dislocation. Moderate osteoarthritic changes and soft tissue swelling noted. - Labs Labs: Abnormal Lab Results - Last 24 Hours (Table) 02/28/20 02/28/20 02/29/20 Range/Units 17:03 21:32 06:45 WBC 1.6 L (3.8-10.6) k/uL RBC 3.70 L (4.30-5.90) m/uL Hgb 9.2 L (13.0-17.5) gm/dL Hct 29.8 L (39.0-53.0) % MCH 24.9 L (25.0-35.0) pg MCHC 30.9 L (31.0-37.0) g/dL RDW 17.5 H (11.5-15.5) % Plt Count 122 L (150-450) k/uL Neutrophils # 1.1 L (1.3-7.7) k/uL Lymphocytes # 0.2 L (1.0-4.8) k/uL Sodium (137-145) mmol/L Chloride (98-107) mmol/L Carbon Dioxide (22-30) mmol/L BUN (9-20) mg/dL Creatinine (0.66-1.25) mg/dL POC Glucose (mg/dL) 148 H 140 H (75-99) mg/dL AST (17-59) U/L ALT (4-49) U/L Alkaline Phosphatase (38-126) U/L Total Protein (6.3-8.2) g/dL Albumin (3.5-5.0) g/dL 02/29/20 02/29/20 Range/Units 06:45 11:49 WBC (3.8-10.6) k/uL RBC (4.30-5.90) m/uL Hgb (13.0-17.5) gm/dL Hct (39.0-53.0) % MCH (25.0-35.0) pg MCHC (31.0-37.0) g/dL RDW (11.5-15.5) % Plt Count (150-450) k/uL Neutrophils # (1.3-7.7) k/uL Lymphocytes # (1.0-4.8) k/uL Sodium 134 L (137-145) mmol/L Chloride 111 H (98-107) mmol/L Carbon Dioxide 15 L (22-30) mmol/L BUN 48 H (9-20) mg/dL Creatinine 2.53 H (0.66-1.25) mg/dL POC Glucose (mg/dL) 137 H (75-99) mg/dL AST 93 H (17-59) U/L ALT 140 H (4-49) U/L Alkaline Phosphatase 277 H (38-126) U/L Total Protein 5.7 L (6.3-8.2) g/dL Albumin 2.8 L (3.5-5.0) g/dL Microbiology - Last 24 Hours (Table) 02/27/20 17:51 Gram Stain - Preliminary Elbow - Left Wound Culture - Preliminary 02/27/20 17:03 Blood Culture - Preliminary Blood No Growth after 24 hours H & H 02/27/20 02/28/20 02/29/20 Range/Units 17:03 06:48 06:45 Hgb 9.4 L 9.5 L 9.2 L (13.0-17.5) gm/dL Hct 29.2 L 30.3 L 29.8 L (39.0-53.0) % Coagulation 02/27/20 Range/Units 17:03 INR 1.3 H (<1.2) Result Diagrams: 02/29/20 06:45 02/29/20 06:45 Assessment and Plan (1) Osteoarthritis of left elbow Current Visit: Yes Status: Acute Code(s): M19.022 - PRIMARY OSTEOARTHRITIS, LEFT ELBOW SNOMED Code(s): 386956688505932 (2) Cellulitis of left arm Current Visit: Yes Status: Acute Code(s): L03.114 - CELLULITIS OF LEFT UPPER LIMB SNOMED Code(s): 260690862 (3) Failure of outpatient treatment Current Visit: Yes Status: Acute Code(s): Z78.9 - OTHER SPECIFIED HEALTH STATUS SNOMED Code(s): 292445245 Plan: #1. Continue IV antibiotics. #2. Recommend warm moist heat to the left elbow. #3. NPO on 03/01/2020. #4. Possible I&D of the left elbow on 03/01/2020 pending clinical course. Will continue to follow.
--- NOTE | 2020-02-29 14:48 | PN ---
PROGRESS NOTE Patient is seen for followup for acute kidney injury. He was admitted to the hospital with severe cellulitis, left elbow and forearm, most likely after an insect bite. Patient's baseline creatinine after renal transplant has been at about 1.8 as of July of 2019. His creatinine was 2.6 mg/dL this admission and currently staying at 2.5. Patient is maintained on IV fluids. He has been voiding well. His UA shows small blood, no significant cells were seen. No nephrotoxic agents on board. Patient did receive vancomycin, which is now switched to daptomycin. PHYSICAL EXAMINATION: On examination today, blood pressure was 141/65, heart rate 61 per minute, he is afebrile. Examination of the heart S1, S2. Examination of the lungs decreased breath sounds at bases. Abdomen is soft, nontender. Examination of the lower extremities shows no significant edema. TRACER [employer]HE SET UP OPERATOR exam grossly intact. Redness and swelling noted at the left elbow and forearm. The redness seems to have improved. TRACER LATHE SET UP OPERATOR exam grossly intact. LABS: Show sodium 134, potassium 4.6, chloride 111, CO2 is 15, BUN 48, creatinine 2.53, hemoglobin 9.2 g/dL. ASSESSMENT: 1. Acute kidney injury, most likely acute tubular necrosis, associated with underlying infection. Check ultrasound to rule out obstruction. UA shows proteinuria and small blood, no significant cells were seen. Vancomycin has been appropriately switched to daptomycin. We will repeat labs in a.m. and continue to avoid nephrotoxic agents. 2. Non-gap metabolic acidosis associated with renal failure and some episodes of diarrhea, maintained on bicarb drip, currently improving. 3. Severe cellulitis and left forearm currently maintained on daptomycin, being followed by ID. 4. Status post living related renal transplant 2002 for polycystic kidney disease, status post bilateral nephrectomy to make room for the transplant. The patient is maintained on Prograf and everolimus, which he will continue. Tacrolimus level was ordered and currently pending. PLAN: Continue IV bicarb, repeat labs in a.m. Check ultrasound of the transplant kidney. Rule out obstruction. MMODL / IJN: [id number] /
--- NOTE | 2020-02-29 15:42 | PN ---
PROGRESS NOTE DATE OF SERVICE: 02/29/2020 REASON FOR FOLLOWUP: Left upper extremity cellulitis with concern for olecranon bursitis. INTERVAL HISTORY: The patient is currently afebrile. The patient is breathing comfortably. Overall pain and discomfort to the left forearm reddness has decreased in intensity. No chest pain. No cough. No abdominal pain or diarrhea. PHYSICAL EXAMINATION: Blood pressure 141/55 with a pulse of 61, temperature 98.1. He is 97% on room air. General description is an elderly male lying in bed in no distress. RESPIRATORY SYSTEM: Unlabored breathing. Clear to auscultation anteriorly. HEART: S1, S2. Regular rate and rhythm. ABDOMEN: Soft. No tenderness. Left arm still has significant swelling, redness slightly decreased. LABS: WBC 1.6, BUN of 48, creatinine 2.53. Cultures currently pending. DIAGNOSTIC IMPRESSION AND PLAN: Patient with left upper extremity cellulitis with concern for olecranon bursitis. Plan at this time is to continue with cefepime and daptomycin , possible debridment and deep culture continue supportive care. MMODL / IJN: [id number] / ENRRIQUE
[2020-02-29 16:54] LABS: Glucose,Whole Blood 131 mg/dL (75-99)
--- NOTE | 2020-02-29 18:15 | PN ---
PROGRESS NOTE DATE OF SERVICE: 02/29/2020 This 74-year-old gentleman who was admitted with significant infection of the left elbow also had significant infection. The cultures are negative at this time. Patient is on broad-spectrum IV antibiotics. Patient has pancytopenia. White count is 1.6 with some neutropenia. Patient is being closely monitored at this time. Orthopedics has seen the patient and recommended possible I&D of the left elbow. The uric acid was 7.7. Past medical history reviewed. REVIEW OF SYSTEMS: CARDIOVASCULAR SYSTEM: No angina, palpitations. RESPIRATORY SYSTEM: As mentioned earlier. GI: As mentioned earlier. : No dysuria or retention. NERVOUS SYSTEM: No numbness, weakness. CURRENT MEDICATIONS: Reviewed. They include Eliquis, aspirin, Tenormin, cefepime, daptomycin, iron sulfate, Dilaudid, Humulin N, Narcan, Prograf. PHYSICAL EXAMINATION: Patient is alert and oriented x3. Pulse 59, blood pressure 139/60, respiration 12, temperature normal, pulse ox 98% on room air. HEENT: Conjunctivae normal. Oral mucosa moist. NECK: No jugular venous distention. No carotid bruit. No lymph node enlargement. CARDIOVASCULAR SYSTEM: S1, S2 muffled. RESPIRATORY SYSTEM: Breath sounds diminished at the bases. No rhonchi. No crackles. ABDOMEN: Soft, non-tender. LEGS: No edema. No swelling. NERVOUS SYSTEM: No focal deficit. EXAMINATION OF THE LEFT ARM: Significant swelling, pain and erythema present. LABS: WBC 1.7, hemoglobin 9.2. Other labs are noted. Cultures are negative so far. ASSESSMENT: 1. Acute severe cellulitis of the left elbow and left forearm and upper arm with possible early sepsis, present on admission. 2. Pancytopenia of undetermined etiology with neutropenic sepsis, present on admission. 3. Hyponatremia. 4. Metabolic acidosis. 5. Increased creatinine with chronic kidney disease, stage 3. 6. Significant swelling of the left arm. 7. Elevated AST and ALT, possibly acute hepatitis related to sepsis. 8. Hypoalbuminemia with mild protein-calorie malnutrition. 9. Coronary artery disease, coronary artery bypass grafting, stent. 10.Diabetes mellitus, type 2. 11.Hypertension. 12.Migraine. 13.History of umbilical hernia. 14.History of polycystic kidney disease. 15.History of nephrectomy and kidney transplant in 2002. 16.FULL CODE. RECOMMENDATIONS AND DISCUSSION: I recommend to continue current medications, continue with the monitoring, symptomatic treatment. Otherwise at this time I recommend continuing to follow with Orthopedic Surgery; possible I&D. Uric acid is normal. Check for crystals. Prognosis guarded. Further recommendations to follow. MMELIOL / IJN: [id number] / MTDD
[2020-02-29 20:29] LABS: Glucose,Whole Blood 175 mg/dL (75-99)
[2020-02-29] MEDS: atenoloL 50 MG TAB PO SCH (20:41)
[2020-03-01 06:39] LABS: Glucose,Whole Blood 114 mg/dL (75-99)
[2020-03-01] MEDS: APIXABAN 5 MG TAB PO SCH ×2 (07:01→20:06)
[2020-03-01] MEDS: ASPIRIN 81 MG PO SCH (07:01)
[2020-03-01 07:23] LABS: Anisocytosis Slight; HCT 27.9 % (39.0-53.0); Hypochromasia Slight; MCH 24.9 pg (25.0-35.0); MCHC 32.1 g/dL (31.0-37.0); MCV 77.7 fL (80.0-100.0); Microcytosis Slight; Platelet Count 137 k/uL (150-450); RDW 17.9 % (11.5-15.5); WBC 1.5 k/uL (3.8-10.6)
[2020-03-01 07:33] LABS: Albumin 2.6 g/dL (3.5-5.0); Calcium 8.1 mg/dL (8.4-10.2); Potassium 4.7 mmol/L (3.5-5.1); Total Bilirubin 0.6 mg/dL (0.2-1.3); Total Protein 5.4 g/dL (6.3-8.2)
[2020-03-01] MEDS: ZORTRESS 0.75 MG PO SCH ×2 (07:40→20:31)
[2020-03-01] MEDS: FERROUS SULFATE 325 MG TAB PO SCH (07:41)
[2020-03-01] MEDS: INSULIN NPH 300 UNIT/3 ML VIAL SQ SCH ×2 (07:41→20:40)
[2020-03-01] MEDS: hydrALAZINE HCL 25 MG TAB PO SCH ×2 (07:41→20:30)
[2020-03-01] MEDS: MULTIVITAMINS, THERA 1 EACH TAB PO SCH (07:41)
[2020-03-01] MEDS: TACROLIMUS 1 MG CAP PO SCH ×2 (07:41→21:21)
[2020-03-01] MEDS: DEXTROSE 5% IN WATER 1,000 ML with SODIUM BICARB (1 MEQ/ML) 150 ML IV SCH (08:34)
[2020-03-01 09:15] LABS: Band Neutrophils % 7 %; Eosinophils # (M) 0.03 k/uL (0-0.7); Lymphocytes # (M) 0.12 k/uL (1.0-4.8); Monocytes # (M) 0.36 k/uL (0-1.0); Neutrophils % (M) 59 %; Nucleated Red Blood Cells 0 /100 WBC (0-0); Total Cells Counted 100
[2020-03-01 09:16] LABS: Poikilocytosis (M) Present
[2020-03-01 09:17] LABS: Mixed Population RBC Present
[2020-03-01] MEDS: CEFEPIME 1 GM in SODIUM CHLORIDE 0.9% 50 ML IVPB SCH ×2 (11:10→23:26)
[2020-03-01 11:34] LABS: Glucose,Whole Blood 127 mg/dL (75-99)
--- NOTE | 2020-03-01 12:20 | PN ---
PROGRESS NOTE Patient is seen for followup for acute kidney injury. The patient is maintained on IV fluids. His left arm cellulitis is about the same as yesterday. The patient's family reports some worsening in the swelling. The Dopplers were negative for DVT on 02/28/2020. The patient remains on antibiotics. His renal function is actually improved. PHYSICAL EXAMINATION: On examination, blood pressure is 128/66, heart rate 62 per minute, he is afebrile. Examination of the heart S1, S2. Examination of the lungs, bilateral breath sounds are heard. Abdomen is soft, nontender. Examination of the lower extremities shows no significant edema lower extremities, left forearm is edematous with redness and scaling noted at the elbow site. DIGITAL ASSET SPECIALIST exam grossly intact. LABS: Show sodium 133, potassium 4.7, chloride 108, CO2 is 17, BUN 45, creatinine 2.18, hemoglobin 9.0 g/dL. ASSESSMENT: 1. Acute kidney injury ATN associated with ongoing infection, currently improving. Continue with the IV fluids. 2. Non-gap metabolic acidosis associated with renal failure. History of diarrhea prior to admission as well. Currently maintained on sodium bicarb. 3. Status post living-related renal transplant, maintained on Prograf and everolimus. Prograf level is pending. Continue current immunosuppressive regimen. 4. Hypertension, currently controlled. 5. Cellulitis left forearm with possible history of insect bite, maintained on daptomycin. 6. S/p living related allograft, baseline cr 1.8 PLAN: Continue with IV bicarb. Continue to avoid nephrotoxic agents. Repeat labs in a.m. Follow up on the tacrolimus level. MMODL / IJN: [id number] / ENRRIQUE
--- NOTE | 2020-03-01 13:02 | P.PN ---
Subjective Progress Note Date: 03/01/20 This patient is a 74-year-old male with past medical history of end-stage renal disease status-post renal transplant currently on immunosuppressants medications, diabetes mellitus, hyperlipidemia, hypertension, and coronary artery disease that is being followed for left elbow cellulitis. He is currently being managed on IV antibiotics per infectious disease. He denies pain in the elbow or forearm. He denies numbness or tingling of the left upper extremity. He states he otherwise feels well. He denies chest pain, shortness of breath, nausea, vomiting, fevers, chills. Vital signs stable. Objective - Vital Signs Vital signs: Vital Signs Temp 97.7 F 03/01/20 07:48 Pulse 62 03/01/20 07:48 Resp 12 03/01/20 07:48 BP 128/66 03/01/20 07:48 Pulse Ox 97 03/01/20 07:48 Intake & Output 02/29/20 03/01/20 03/01/20 18:59 06:59 18:59 Intake Total 125 Balance 125 Intake: Oral 125 Other: Voiding Method Toilet Toilet Toilet # Voids 2 2 - Exam On exam patient is lying comfortably in bed in no acute distress. Patient is alert and oriented x3 and well-appearing. There is erythema and swelling over the left elbow. Swelling extends to the left forearm. There is a wound over the olecranon process, but there is no active drainage. No fluctuance over the olecranon process or the forearm. No fluid collections noted. No pain with PROM of the elbow or wrist. Motor and sensory function intact. Radial pulse palpable. The left upper extremity is warm and well perfused. - Labs CBC & Chem 7: 03/01/20 06:54 03/01/20 06:54 Labs: Abnormal Lab Results - Last 24 Hours (Table) 02/29/20 02/29/20 03/01/20 Range/Units 16:52 20:25 06:37 WBC (3.8-10.6) k/uL RBC (4.30-5.90) m/uL Hgb (13.0-17.5) gm/dL Hct (39.0-53.0) % MCV (80.0-100.0) fL MCH (25.0-35.0) pg RDW (11.5-15.5) % Plt Count (150-450) k/uL Neutrophils # (Manual) (1.3-7.7) k/uL Lymphocytes # (Manual) (1.0-4.8) k/uL Sodium (137-145) mmol/L Chloride (98-107) mmol/L Carbon Dioxide (22-30) mmol/L BUN (9-20) mg/dL Creatinine (0.66-1.25) mg/dL Glucose (74-99) mg/dL POC Glucose (mg/dL) 131 H 175 H 114 H (75-99) mg/dL Calcium (8.4-10.2) mg/dL AST (17-59) U/L ALT (4-49) U/L Alkaline Phosphatase (38-126) U/L Total Protein (6.3-8.2) g/dL Albumin (3.5-5.0) g/dL 03/01/20 03/01/20 03/01/20 Range/Units 06:54 06:54 11:33 WBC 1.5 L (3.8-10.6) k/uL RBC 3.60 L (4.30-5.90) m/uL Hgb 9.0 L (13.0-17.5) gm/dL Hct 27.9 L (39.0-53.0) % MCV 77.7 L (80.0-100.0) fL MCH 24.9 L (25.0-35.0) pg RDW 17.9 H (11.5-15.5) % Plt Count 137 L (150-450) k/uL Neutrophils # (Manual) 0.90 L (1.3-7.7) k/uL Lymphocytes # (Manual) 0.12 L (1.0-4.8) k/uL Sodium 133 L (137-145) mmol/L Chloride 108 H (98-107) mmol/L Carbon Dioxide 17 L (22-30) mmol/L BUN 45 H (9-20) mg/dL Creatinine 2.18 H (0.66-1.25) mg/dL Glucose 104 H (74-99) mg/dL POC Glucose (mg/dL) 127 H (75-99) mg/dL Calcium 8.1 L (8.4-10.2) mg/dL AST 76 H (17-59) U/L ALT 118 H (4-49) U/L Alkaline Phosphatase 263 H (38-126) U/L Total Protein 5.4 L (6.3-8.2) g/dL Albumin 2.6 L (3.5-5.0) g/dL Microbiology - Last 24 Hours (Table) 02/27/20 17:03 Blood Culture - Preliminary Blood No Growth after 48 hours 02/27/20 17:51 Gram Stain - Final Elbow - Left Wound Culture - Final Assessment and Plan Assessment: Left elbow cellulitis Plan: - The clinical findings were discussed with the patient. The patient was discussed with Dr. Bryan Guillen. Recommended we continue with conservative treatment at this time. - Recommended continued warm compresses to the left elbow. - Continue IV antibiotics under the discretion of Dr. Boyle. - Patient will be made NPO at midnight for possible surgical intervention tomorrow, depending on patient's clinical course.
[2020-03-01] MEDS: DAPTOmycin 500 MG in SODIUM CHLORIDE 0.9% 50 ML IVPB SCH (16:45)
--- NOTE | 2020-03-01 16:47 | PN ---
PROGRESS NOTE DATE OF SERVICE: 03/01/2020 This is a 74-year-old gentleman with a past history of multiple problems admitted with significant infection in the lymph node area. The arm was swollen. Patient was started on empiric antibiotics, cultures are negative so far. Orthopedics is following the patient closely as well as Infectious Disease. The patient also had kidney transplant as well as pancytopenia, also multiple consultants are following the patient closely and warm compresses continue with the antibiotics and possible surgical intervention tomorrow is being planned at this time. PAST MEDICAL HISTORY: Reviewed. REVIEW OF SYSTEMS: CARDIOVASCULAR SYSTEM: No angina. RESPIRATION: As mentioned earlier. GI: As mentioned earlier. : No dysuria. NERVOUS SYSTEM: No numbness or weakness. CURRENT MEDICATIONS: Reviewed and include: Eliquis, aspirin, Tenormin, cefepime, daptomycin, vitamin D2, sulfamethoxazole, Dilaudid, NovoLog, Narcan. PHYSICAL EXAM: Patient is alert and oriented x3. Pulse is 68. Blood pressure 157/76, respiration 20, temperature 97.7, pulse ox 100% on room air. HEENT: Conjunctivae normal. NECK: No jugular venous distension. CARDIOVASCULAR SYSTEM: S1, S2, muffled. RESPIRATORY: Breath sounds diminished at the bases, no rhonchi, no crackles. ABDOMEN: Soft, nontender. No mass palpable. Examination of the left arm with significant swelling and swelling in the proximal forearm and elbow also, minimal in the lower part of the upper arm, also tender and erythematous. Some discharge also present. NERVOUS SYSTEM: No focal deficits. LABS: WBC 1.3, hemoglobin is 9 and platelets are 137. Sodium 133, CO2 is 17, creatinine is 2.18. ASSESSMENT: 1. Acute severe cellulitis of the left elbow and left forearm in the lower part of the upper arm with possible early sepsis present on admission. 2. Pancytopenia, undetermined etiology with possible neutropenic sepsis present on admission. 3. Hyponatremia. 4. Metabolic acidosis. 5. Increased creatinine with chronic kidney stage 3. 6. Significant swelling of the left arm. 7. Elevated AST, ALT, possibly acute hepatitis, later sepsis. 8. Hypoalbuminemia with mild protein calorie malnutrition. 9. CAD, CABG stent history. 10.Diabetes mellitus type 2. 11.Hypertension. 12.History of migraine. 13.History umbilical hernia. 14.History of polycystic kidney disease. 15.History of nephrectomy and kidney transplant in 2002. 16.FULL CODE. RECOMMENDATION: Continue current medications, symptomatic treatment. At this time, continue with the antibiotics. Other than that, I would recommend repeat labs. Monitor creatinine closely. I would also recommend a CT scan of the arm and closely follow with Orthopedic Surgery. Guarded prognosis because of multiple complex medical conditions: Elevated arms above the heart level and closely monitor. Guarded prognosis. Further recommendations to follow. Check uric acid crystals in the culture. MMODL / IJN: [id number] /
[2020-03-01 16:48] LABS: Glucose,Whole Blood 248 mg/dL (75-99)
[2020-03-01] MEDS: INSULIN ASPART (NovoLOG) 100 UNIT/ML VIAL SQ SCH ×2 (16:51→20:32)
[2020-03-01 20:22] LABS: Glucose,Whole Blood 190 mg/dL (75-99)
[2020-03-01] MEDS: atenoloL 50 MG TAB PO SCH (20:30)
--- NOTE | 2020-03-01 22:44 | CT ---
EXAMINATION TYPE: CT upper extremity LT wo con with 3-D reconstruction renderings DATE OF EXAM: 03/01/2020 COMPARISON: Radiographs 02/27/2020 HISTORY: Swelling and redness to left arm x [address] DLP: 734.5 mGycm Automated exposure control for dose reduction was used. FINDINGS: Markedly advanced osteoarthritis changes are seen at the elbow, but negative for fracture or malalign ment. There is soft tissue swelling posterior to the olecranon, posterior to the distal humeral shaft, and posterior to the proximal ulna. However, there are no underlying fractures. There is a large glenohumeral joint effusion, with smoothly defined fluid collections anterior and po sterior to the shoulder. These can be further characterized using MRI0. IMPRESSION: NEGATIVE FOR FRACTURE/MALALIGNMENT.
--- NOTE | 2020-03-01 22:50 | PN ---
PROGRESS NOTE DATE OF SERVICE: 03/01/2020 REASON FOR FOLLOWUP: Left upper extremity cellulitis. INTERVAL HISTORY: The patient is currently afebrile. The patient is breathing comfortably. Patient denies having any chest pain or shortness of breath or cough. No nausea, no vomiting, no abdominal pain or any worsening pain in the left upper extremity. PHYSICAL EXAMINATION: Blood pressure 143/60 with a pulse of 57, temperature 98.7. He is 93% on room air. General description is an elderly male up in the bed in no distress. RESPIRATORY SYSTEM: Unlabored breathing. Clear to auscultation anteriorly. HEART: S1, S2. Regular rate and rhythm. ABDOMEN: Soft. No tenderness. Left lower extremity swelling has slightly decreased. LABS: Hemoglobin is 9, white count 1.5, BUN of 45, creatinine is 2.18. Local cultures came back negative. Blood culture negative. DIAGNOSTIC IMPRESSION AND PLAN: Patient with left upper extremity cellulitis and concern for olecranon bursitis. Orthopedics recommending no surgical drainage. We have kept the patient on cefepime and daptomycin; to continue. CT has been ordered. Results will be followed. Patient will benefit from drainage procedure and deep cultures. The patient's was at the bedside. Her questions and concerns were answered. MMODL / IJN: [id number] /
[2020-03-02] MEDS: DEXTROSE 5% IN WATER 1,000 ML with SODIUM BICARB (1 MEQ/ML) 150 ML IV SCH ×2 (02:36→14:38)
[2020-03-02 06:55] LABS: Glucose,Whole Blood 93 mg/dL (75-99)
[2020-03-02] MEDS: APIXABAN 5 MG TAB PO SCH ×2 (07:04→19:31)
[2020-03-02] MEDS: ASPIRIN 81 MG PO SCH (07:05)
[2020-03-02 07:07] LABS: Anisocytosis Slight; HCT 27.4 % (39.0-53.0); HGB 8.7 gm/dL (13.0-17.5); Hypochromasia Slight; MCH 24.8 pg (25.0-35.0); MCHC 31.8 g/dL (31.0-37.0); Microcytosis Slight; Platelet Count 128 k/uL (150-450); RBC 3.51 m/uL (4.30-5.90); RDW 17.5 % (11.5-15.5); WBC 1.8 k/uL (3.8-10.6)
[2020-03-02] MEDS: INSULIN NPH 300 UNIT/3 ML VIAL SQ SCH ×2 (07:15→20:39)
[2020-03-02 07:20] LABS: Albumin 2.7 g/dL (3.5-5.0); Calcium 8.1 mg/dL (8.4-10.2); Potassium 4.8 mmol/L (3.5-5.1); Total Bilirubin 0.7 mg/dL (0.2-1.3); Total Protein 5.3 g/dL (6.3-8.2)
[2020-03-02] MEDS: INSULIN ASPART (NovoLOG) 100 UNIT/ML VIAL SQ SCH ×4 (07:49→20:39)
[2020-03-02 07:55] LABS: C Reactive Protein 122.8 mg/L (<10.0)
[2020-03-02 08:21] LABS: Band Neutrophils % 3 %; Eosinophils # (M) 0.09 k/uL (0-0.7); Lymphocytes # (M) 0.34 k/uL (1.0-4.8); Monocytes # (M) 0.45 k/uL (0-1.0); Neutrophils % (M) 48 %; Nucleated Red Blood Cells 0 /100 WBC (0-0); Total Cells Counted 100
[2020-03-02 08:24] LABS: Ovalocytes Present; Poikilocytosis (M) Present
--- NOTE | 2020-03-02 09:06 | P.PN ---
Subjective Progress Note Date: 03/02/20 This is a 74 year-old male admitted for cellulitis of the left elbow. Patient states that he does have some pain with range of motion, but otherwise feels well. Patient denies any new complaints today. Objective - Vital Signs Vital signs: Vital Signs Temp 98.6 F 03/02/20 07:20 Pulse 58 L 03/02/20 07:20 Resp 18 03/02/20 07:20 BP 154/70 03/02/20 07:20 Pulse Ox 98 03/02/20 07:20 Intake & Output 03/01/20 03/02/20 03/02/20 18:59 06:59 18:59 Intake Total 125 Balance 125 Intake: Oral 125 Other: Voiding Method Toilet Toilet Toilet # Voids 2 1 - Exam On exam there is swelling and erythema over the olecranon bursa extending to the left forearm. There is no active drainage. Patient does have limitation with range of motion due to swelling and pain. Sensation intact. Neurovascular status and circulatory status are intact. - Labs CBC & Chem 7: 03/02/20 06:19 03/02/20 06:19 Labs: Abnormal Lab Results - Last 24 Hours (Table) 03/01/20 03/01/20 03/01/20 Range/Units 06:54 11:33 16:46 WBC (3.8-10.6) k/uL RBC (4.30-5.90) m/uL Hgb (13.0-17.5) gm/dL Hct (39.0-53.0) % MCV (80.0-100.0) fL MCH (25.0-35.0) pg RDW (11.5-15.5) % Plt Count (150-450) k/uL Neutrophils # (Manual) 0.90 L (1.3-7.7) k/uL Lymphocytes # (Manual) 0.12 L (1.0-4.8) k/uL Sodium (137-145) mmol/L Carbon Dioxide (22-30) mmol/L BUN (9-20) mg/dL Creatinine (0.66-1.25) mg/dL POC Glucose (mg/dL) 127 H 248 H (75-99) mg/dL Calcium (8.4-10.2) mg/dL ALT (4-49) U/L Alkaline Phosphatase (38-126) U/L C-Reactive Protein (<10.0) mg/L Total Protein (6.3-8.2) g/dL Albumin (3.5-5.0) g/dL 03/01/20 03/02/20 03/02/20 Range/Units 20:20 06:19 06:19 WBC 1.8 L (3.8-10.6) k/uL RBC 3.51 L (4.30-5.90) m/uL Hgb 8.7 L (13.0-17.5) gm/dL Hct 27.4 L (39.0-53.0) % MCV 78.0 L (80.0-100.0) fL MCH 24.8 L (25.0-35.0) pg RDW 17.5 H (11.5-15.5) % Plt Count 128 L (150-450) k/uL Neutrophils # (Manual) 0.90 L (1.3-7.7) k/uL Lymphocytes # (Manual) 0.34 L (1.0-4.8) k/uL Sodium 134 L (137-145) mmol/L Carbon Dioxide 21 L (22-30) mmol/L BUN 48 H (9-20) mg/dL Creatinine 2.50 H (0.66-1.25) mg/dL POC Glucose (mg/dL) 190 H (75-99) mg/dL Calcium 8.1 L (8.4-10.2) mg/dL ALT 105 H (4-49) U/L Alkaline Phosphatase 241 H (38-126) U/L C-Reactive Protein 122.8 H (<10.0) mg/L Total Protein 5.3 L (6.3-8.2) g/dL Albumin 2.7 L (3.5-5.0) g/dL Microbiology - Last 24 Hours (Table) 02/27/20 17:03 Blood Culture - Preliminary Blood No Growth after 72 hours Assessment and Plan (1) Osteoarthritis of left elbow Current Visit: Yes Status: Acute Code(s): M19.022 - PRIMARY OSTEOARTHRITIS, LEFT ELBOW SNOMED Code(s): 040230838810377 (2) Cellulitis of left arm Current Visit: Yes Status: Acute Code(s): L03.114 - CELLULITIS OF LEFT UPPER LIMB SNOMED Code(s): 463108145 (3) Failure of outpatient treatment Current Visit: Yes Status: Acute Code(s): Z78.9 - OTHER SPECIFIED HEALTH STATUS SNOMED Code(s): 732356304 Plan: #1. Continue IV antibiotics. #2. Recommend warm moist heat to the left elbow. #3. NPO today. #4. Planning for I&D of the left elbow today pending medical clearance and consent.
[2020-03-02] MEDS: FERROUS SULFATE 325 MG TAB PO SCH (09:24)
[2020-03-02] MEDS: TACROLIMUS 1 MG CAP PO SCH ×2 (09:24→19:39)
[2020-03-02] MEDS: hydrALAZINE HCL 25 MG TAB PO SCH ×2 (09:28→19:40)
[2020-03-02] MEDS: MULTIVITAMINS, THERA 1 EACH TAB PO SCH (09:28)
[2020-03-02] MEDS: ZORTRESS 0.75 MG PO SCH ×2 (09:31→19:40)
[2020-03-02 09:41] LABS: Erythrocyte Sedimentation Rate 82 mm/hr (0-15)
--- NOTE | 2020-03-02 11:32 | PN ---
PROGRESS NOTE Patient is seen for followup for acute kidney injury in the transplant kidney. He was admitted to the hospital with severe left forearm cellulitis, possibly related to an insect bite. His baseline creatinine is about 1.8. It had gone up to 2.5 - 2.6 mg/dL and it did decrease to about 2.1 yesterday, but this morning it is back up to 2.5. The patient has been voiding well. Transplant ultrasound was unremarkable. UA shows protein and hematuria. The tacrolimus level did come back at 7.9, which is in the range; however, slightly on the high side. PHYSICAL EXAMINATION: On examination today, blood pressure is 154/70, heart rate 58 per minute, he is afebrile. Examination of the heart S1, S2. Examination of the lungs, bilateral breath sounds are heard. Abdomen is soft, nontender. Examination of the lower extremities shows trace edema bilaterally. HELICOPTER MECH[employer]IC exam grossly intact. Left arm cellulitis seems to be slightly decreased. Swelling persists. There is some scaling of the skin noted on the elbow. HELICOPTER MECHANIC exam grossly intact. LABS: Show sodium 134, potassium 4.8, chloride 105, BUN 48, creatinine 2.5, hemoglobin 8.7 g/dL. ASSESSMENT: 1. Acute kidney injury, ATN associated with underlying infection. Patient's renal function had improved with IV fluids. Creatinine is back up to 2.5 today. No major nephrotoxic medications noted. No hypotension. Patient is voiding well. I will continue with IV fluids. I will decrease the Prograf as the level is slightly on the high side. This will also help with the healing of the infection. 2. Metabolic acidosis currently maintained on IV bicarb. 3. Anemia, no active bleeding noted, mostly anemia of chronic disease. I will add Aranesp and check iron studies. 4. Left forearm cellulitis, maintained on daptomycin, status post vancomycin initially, going down for I and D today. The upper extremity CT scan showed a lot of soft tissue inflammation. PLAN: Continue IV fluids, decrease Prograf and continue antibiotics. Continue to avoid nephrotoxic agents. Avoid hypotension. MMODL / IJN: [id number] /
[2020-03-02 11:35] LABS: Glucose,Whole Blood 120 mg/dL (75-99)
[2020-03-02] MEDS ORDERED: DARBEPOETIN ALFA 40 MCG/0.4 ML SYRINGE SQ SCH (12:00)
[2020-03-02] MEDS: CEFEPIME 1 GM in SODIUM CHLORIDE 0.9% 50 ML IVPB SCH ×2 (12:40→23:30)
[2020-03-02] MEDS ORDERED: IV FLUID CONTINUATION 1,000 ML IV ONE (15:28)
[2020-03-02 15:31] LABS: % Iron Saturation 5.45 (15.00-50.00)
--- NOTE | 2020-03-02 16:00 | PN ---
PROGRESS NOTE DATE OF SERVICE: 03/02/2020 REASON FOR FOLLOWUP: Left elbow olecranon bursitis and cellulitis of left arm. INTERVAL HISTORY: Patient is currently afebrile, has been breathing comfortably. Patient denies having any chest pain. No shortness of breath or cough. No nausea, vomiting, abdominal pain, or any worsening pain in the left arm. PHYSICAL EXAMINATION: Blood pressure is 146/68 with a pulse of 65, temperature 98.2, he is 97% on room air. General description is an elderly male, lying in bed in no distress. RESPIRATORY SYSTEM: Unlabored breathing, clear to auscultation anteriorly. HEART: S1, S2. Regular rate and rhythm. ABDOMEN: Soft, no tenderness. Left elbow swelling and redness persist, no drainage. LABS: Creatinine is 2.50, hemoglobin 8.1, white count 1.8. Blood culture negative. DIAGNOSTIC IMPRESSION AND PLAN: Patient left elbow olecranon bursitis and cellulitis of left upper extremity. Awaiting I and D, and bursectomy this afternoon. Deep culture should be obtained. Continue cefepime and dapto. Discharge medications will depend upon the cultures. Continue supportive care. MMODL / IJN: [id number] /
[2020-03-02 16:04] LABS: Hemoglobin A1C 6.2 % (4.0-6.0)
[2020-03-02] MEDS ORDERED: fentaNYL (PF) 50 MCG/ML 2 ML AMP ONE (16:57)
[2020-03-02] MEDS ORDERED: MIDAZOLAM 2 MG/2 ML VIAL ONE (16:57)
[2020-03-02] MEDS ORDERED: ePHEDrine SULFATE/0.9% NACL/PF 50 MG/5 ML SYRINGE IV ONE (16:57)
[2020-03-02] MEDS ORDERED: LIDOCAINE 1% INJ 10MG/ML (20 ML MDV) ONE (16:57)
[2020-03-02] MEDS ORDERED: PROPOFOL 10 MG/ML 20 ML VIAL IV ONE (16:57)
[2020-03-02] MEDS ORDERED: SENNOSIDES-DOCUSATE SODIUM 1 EACH TAB PO PRN (17:09)
[2020-03-02] MEDS ORDERED: HYDROcodone/APAP 5-325MG 1 EACH TAB PO PRN (17:09)
[2020-03-02] MEDS ORDERED: HYDROmorphone 0.5 MG/0.5 ML SYRINGE IVP PRN ×3 (17:09)
--- NOTE | 2020-03-02 17:21 | PN ---
PROGRESS NOTE DATE OF SERVICE: 03/02/2020 This is a 74-year-old gentleman has significant cellulitis infection of the left elbow, is being closely monitored. The patient is on broad-spectrum IV antibiotics. The patient also had a history of renal transplant and renal failure also. The cultures are negative so far. The white count is 1.8, hemoglobin is 8.7, sodium 134. AST, ALT were noted, elevated and patient also with history of for possible brown recluse spider bite also, possible bursectomy is being planned at this time. No chest pain. No palpitations. No fever. PAST MEDICAL HISTORY: Reviewed. REVIEW OF SYSTEMS: CARDIOVASCULAR SYSTEM: No angina or palpitations. RESPIRATORY: As mentioned earlier. GI: As mentioned earlier. : As mentioned earlier. NERVOUS SYSTEM: No numbness or weakness CURRENT MEDICATIONS: Reviewed and include: 1. Eliquis 5 mg p.o. b.i.d. 2. Aspirin 81 mg. 3. Tenormin 1 g b.i.d. 4. Daptomycin. 5. Aranesp. 6. Vitamin D. 7. Iron sulfate: 8. Dilaudid. 9. Humulin N. 10.Narcan. 11.Prograf. PHYSICAL EXAM: Patient is alert and oriented x3. Pulse 65, blood pressure 140/60, respiration 18, temp 98.2, pulse ox 97% on room air. HEENT: Conjunctivae normal. NECK: No jugular venous distension. CARDIOVASCULAR SYSTEM: S1, S2, muffled. RESPIRATION: Breath sounds diminished at the bases, a few scattered rhonchi, no crackles. ABDOMEN: Soft, nontender. No mass palpable. LEGS: No edema, no swelling. NERVOUS SYSTEM: Higher functions as mentioned earlier. Moves all 4 limbs. No focal motor or sensory deficits. LYMPHATICS: No lymph node enlargement in the neck or axillae. SKIN: No ulcers, no rash. JOINTS: No active joint arthropathy. LABS: WBC is 1.8, hemoglobin is 8.7, sodium is 134, potassium 4.2, creatinine is 2.5 and hemoglobin is 6.2. ALT is 105. ASSESSMENT: 1. Acute severe cellulitis of the left elbow and left arm with lower part of the upper arm and possibly early sepsis, present on admission. 2. Pancytopenia and undetermined etiology possible neutropenic sepsis present on admission. 3. Hyponatremia. 4. Metabolic acidosis. 5. Increased creatinine with chronic kidney stage 3. 6. Significant swelling of the left arm. 7. Elevated AST, ALT, possibly acute hepatitis related to sepsis. 8. Hypoalbuminemia with mild protein calorie malnutrition. 9. CAD, CABG stent history. 10.Diabetes mellitus type 2. 11.Hypertension. 12.History of migraine. 13.History of umbilical hernia. 14.History of polycystic kidney disease. 15.History of nephrectomy and kidney transplant in 2002. 16.FULL CODE. RECOMMENDATION: Recommend to continue current medications, continue symptomatic treatment. Otherwise at this time, continue with the antibiotics. Repeat labs. Incision and drainage for Orthopedic Surgery. Keep elevating the arm. Otherwise, repeat labs in the morning. Prognosis guarded. Cultures are negative so far. Closely follow with Infectious Disease. Further recommendations to follow. MMODL / IJN: [id number] / MTDD
--- NOTE | 2020-03-02 17:41 | P.OP ---
Date of Procedure: 03/02/20 Preoperative Diagnosis: Infection left elbow olecranon bursa Postoperative Diagnosis: Infection left elbow olecranon bursa Procedure(s) Performed: Incision and drainage left olecranon bursa Anesthesia: BETINA Surgeon: Bryan Guillen Business Liaison Officer #1: Shilpa Harmon Estimated Blood Loss (ml): 20 Pathology: other (Culture of a left olecranon bursa) Condition: stable Disposition: PACU Indications for Procedure: This is a 74-year-old gentleman that has had prior bilateral renal transplants. He developed an infection in his left olecranon bursa which failed outpatient treatment. He was admitted and placed on IV antibiotics. He is failed conservative treatment and after discussing the surgical and nonsurgical treatment options with him and his at length I've recommended a formal incision and drainage of his left olecranon bursa. Informed consent was obtained. Operative Findings: The operative findings are consistent with an infection left olecranon bursa. Description of Procedure: The patient was seen in the preoperative area, consent was reviewed and operative site was marked with a skin marker. Patient was then brought to the operating room and given a general anesthetic by the anesthesia department. His left upper extremities and prepped and draped in usual sterile fashion. [place] timeout was then performed confirming the patient's name, surgical site, ALLERGIES, and consent. The elbow was then sharply incised posteriorly over the olecranon bursa with the skin and subcu tissue sharply incised. A pocket of purulent material was then encountered in the olecranon bursa area. This was then cultured. The purulent material was then removed. Using finger dissection the entire olecranon bursa area was then probed for any further pockets of infection. It was none. The infection was not down to the bone. After a thorough inspection, there area was then irrigated with pulsatile lavage. The skin was then closed with 2-0 Vicryl suture. Sterile dressing was applied the patient was transferred recovery room stable condition Asst. MICHELLE Franklin was required due the complexity of the surgery and the need for skilled pharmacy affairs assistant.
[2020-03-02] MEDS ORDERED: HYDROmorphone 0.5 MG/0.5 ML SYRINGE IVP ONE ×2 (17:50→18:15)
[2020-03-02] MEDS: atenoloL 50 MG TAB PO SCH (19:39)
[2020-03-02 20:27] LABS: Glucose,Whole Blood 167 mg/dL (75-99)
[2020-03-02] MEDS: HYDROcodone/APAP 5-325MG 1 EACH TAB PO PRN (23:32)
[2020-03-03] MEDS: HYDROcodone/APAP 5-325MG 1 EACH TAB PO PRN ×2 (05:03→22:29)
[2020-03-03] MEDS: DEXTROSE 5% IN WATER 1,000 ML with SODIUM BICARB (1 MEQ/ML) 150 ML IV SCH (06:26)
[2020-03-03 06:52] LABS: Glucose,Whole Blood 193 mg/dL (75-99)
[2020-03-03] MEDS: FERROUS SULFATE 325 MG TAB PO SCH (08:28)
[2020-03-03] MEDS: APIXABAN 5 MG TAB PO SCH ×2 (08:28→20:46)
[2020-03-03] MEDS: ASPIRIN 81 MG PO SCH (08:29)
[2020-03-03] MEDS: INSULIN NPH 300 UNIT/3 ML VIAL SQ SCH ×2 (08:29→20:47)
[2020-03-03] MEDS: TACROLIMUS 1 MG CAP PO SCH ×2 (08:29→20:47)
[2020-03-03] MEDS: MULTIVITAMINS, THERA 1 EACH TAB PO SCH (08:29)
[2020-03-03] MEDS: hydrALAZINE HCL 25 MG TAB PO SCH ×2 (08:29→20:46)
[2020-03-03] MEDS: INSULIN ASPART (NovoLOG) 100 UNIT/ML VIAL SQ SCH ×4 (08:29→20:47)
[2020-03-03] MEDS: ZORTRESS 0.75 MG PO SCH ×2 (08:30→20:46)
[2020-03-03 09:13] LABS: Albumin 2.7 g/dL (3.5-5.0); Potassium 4.5 mmol/L (3.5-5.1); Total Bilirubin 0.6 mg/dL (0.2-1.3); Total Protein 5.2 g/dL (6.3-8.2)
--- NOTE | 2020-03-03 09:49 | P.PN ---
Subjective Progress Note Date: 03/03/20 This is a 74-year-old male who is status post incision and drainage of left olecranon bursa. This is postoperative day #1 and patient is seen and evaluated at bedside. Patient states that he has noticed improvement in his pain and swelling this morning. Patient denies any new complaints today. Patient denies any fever/chills, numbness, weakness, tingling, abdominal pain, shortness of b reath or chest pain. Objective - Vital Signs Vital signs: Vital Signs Temp 98.2 F 03/03/20 07:49 Pulse 66 03/03/20 07:49 Resp 15 03/03/20 07:49 BP 137/81 03/03/20 07:49 Pulse Ox 92 L 03/03/20 07:49 Intake & Output 03/02/20 03/03/20 03/03/20 18:59 06:59 18:59 Intake Total 400 450 340 Output Total 10 Balance 390 450 340 Weight 74.843 kg Intake: IV 400 Oral 450 340 Output: Estimated Blood Loss 10 Other: Voiding Method Toilet Toilet # Voids 1 3 - Exam Vital signs are stable. Patient is in no acute distress and is alert and oriented 3. Dressing is clean, dry, and intact. Patient has good range of motion of the left wrist and hand. Sensation is intact. The left upper extremity is warm and well perfused. Neurovascular status and circulatory status are intact. - Labs CBC & Chem 7: 03/02/20 06:19 03/03/20 08:34 Labs: Abnormal Lab Results - Last 24 Hours (Table) 03/02/20 03/02/20 03/02/20 Range/Units 06:19 06:19 11:33 Sodium (137-145) mmol/L Carbon Dioxide (22-30) mmol/L BUN (9-20) mg/dL Creatinine (0.66-1.25) mg/dL Glucose (74-99) mg/dL POC Glucose (mg/dL) 120 H (75-99) mg/dL Hemoglobin A1c 6.2 H (4.0-6.0) % Calcium (8.4-10.2) mg/dL Iron 11 L (65-175) ug/dL TIBC 202 L (228-460) ug/dL % Saturation 5.45 L (15.00-50.00) ALT (4-49) U/L Alkaline Phosphatase (38-126) U/L Total Protein (6.3-8.2) g/dL Albumin (3.5-5.0) g/dL 03/02/20 03/03/20 03/03/20 Range/Units 20:25 06:50 08:34 Sodium 132 L (137-145) mmol/L Carbon Dioxide 20 L (22-30) mmol/L BUN 51 H (9-20) mg/dL Creatinine 2.45 H (0.66-1.25) mg/dL Glucose 229 H (74-99) mg/dL POC Glucose (mg/dL) 167 H 193 H (75-99) mg/dL Hemoglobin A1c (4.0-6.0) % Calcium 8.0 L (8.4-10.2) mg/dL Iron (65-175) ug/dL TIBC (228-460) ug/dL % Saturation (15.00-50.00) ALT 64 H (4-49) U/L Alkaline Phosphatase 221 H (38-126) U/L Total Protein 5.2 L (6.3-8.2) g/dL Albumin 2.7 L (3.5-5.0) g/dL Microbiology - Last 24 Hours (Table) 03/02/20 17:33 Gram Stain - Preliminary Elbow - Left Wound Culture - Preliminary 03/02/20 17:33 Anaerobic Culture - Preliminary Elbow - Left 02/27/20 17:03 Blood Culture - Preliminary Blood No Growth after 96 hours Assessment and Plan (1) Osteoarthritis of left elbow Current Visit: Yes Status: Acute Code(s): M19.022 - PRIMARY OSTEOARTHRITIS, LEFT ELBOW SNOMED Code(s): 278360107016279 (2) Cellulitis of left arm Current Visit: Yes Status: Acute Code(s): L03.114 - CELLULITIS OF LEFT UPPER LIMB SNOMED Code(s): 079378460 (3) Failure of outpatient treatment Current Visit: Yes Status: Acute Code(s): Z78.9 - OTHER SPECIFIED HEALTH STATUS SNOMED Code(s): 642565888 Plan: #1. Continue routine postoperative care and pain control. 2. Will plan to change dressing tomorrow. 3. IV antibiotics per infectious disease. 4. Cultures are pending. 5. Will continue to follow the patient closely.
[2020-03-03 10:00] LABS: Anisocytosis Slight; HCT 26.4 % (39.0-53.0); HGB 8.1 gm/dL (13.0-17.5); Hypochromasia Moderate; MCH 24.4 pg (25.0-35.0); MCHC 30.7 g/dL (31.0-37.0); MCV 79.6 fL (80.0-100.0); Mean Platelet Volume 9.7; Microcytosis Slight; Platelet Count 135 k/uL (150-450); RBC 3.32 m/uL (4.30-5.90); RDW 17.5 % (11.5-15.5); WBC 1.6 k/uL (3.8-10.6)
[2020-03-03] MEDS: CEFEPIME 1 GM in SODIUM CHLORIDE 0.9% 50 ML IVPB SCH (11:11)
--- NOTE | 2020-03-03 11:15 | P.PN ---
Subjective Patient is seen in follow-up for acute kidney injury on chronic kidney disease. Renal function stable. Oral intake is good. No vomiting. Did have loose bowel movements yesterday but none today. Currently maintained on a bicarbonate drip. He's being treated for left upper extremity cellulitis. Vital signs are stable. General: The patient appeared well nourished and normally developed. HEENT: Head exam is unremarkable. Neck is without jugular venous distension. LUNGS: Breath sounds decreased. HEART: Rate and Rhythm are regular. ABDOMEN: Soft, non-tender. EXTREMITITES: No edema. Objective - Vital Signs Vital signs: Vital Signs Temp 98.2 F 03/03/20 07:49 Pulse 66 03/03/20 07:49 Resp 15 03/03/20 07:49 BP 137/81 03/03/20 07:49 Pulse Ox 92 L 03/03/20 07:49 Intake & Output 03/02/20 03/03/20 03/03/20 18:59 06:59 18:59 Intake Total 400 450 340 Output Total 10 Balance 390 450 340 Weight 74.843 kg Intake: IV 400 Oral 450 340 Output: Estimated Blood Loss 10 Other: Voiding Method Toilet Toilet # Voids 1 3 - Labs CBC & Chem 7: 03/03/20 08:34 03/03/20 08:34 Labs: Abnormal Lab Results - Last 24 Hours (Table) 03/02/20 03/02/20 03/02/20 Range/Units 06:19 06:19 11:33 WBC (3.8-10.6) k/uL RBC (4.30-5.90) m/uL Hgb (13.0-17.5) gm/dL Hct (39.0-53.0) % MCV (80.0-100.0) fL MCH (25.0-35.0) pg MCHC (31.0-37.0) g/dL RDW (11.5-15.5) % Plt Count (150-450) k/uL Sodium (137-145) mmol/L Carbon Dioxide (22-30) mmol/L BUN (9-20) mg/dL Creatinine (0.66-1.25) mg/dL Glucose (74-99) mg/dL POC Glucose (mg/dL) 120 H (75-99) mg/dL Hemoglobin A1c 6.2 H (4.0-6.0) % Calcium (8.4-10.2) mg/dL Iron 11 L (65-175) ug/dL TIBC 202 L (228-460) ug/dL % Saturation 5.45 L (15.00-50.00) ALT (4-49) U/L Alkaline Phosphatase (38-126) U/L Total Protein (6.3-8.2) g/dL Albumin (3.5-5.0) g/dL 03/02/20 03/03/20 03/03/20 Range/Units 20:25 06:50 08:34 WBC 1.6 L (3.8-10.6) k/uL RBC 3.32 L (4.30-5.90) m/uL Hgb 8.1 L (13.0-17.5) gm/dL Hct 26.4 L (39.0-53.0) % MCV 79.6 L (80.0-100.0) fL MCH 24.4 L (25.0-35.0) pg MCHC 30.7 L (31.0-37.0) g/dL RDW 17.5 H (11.5-15.5) % Plt Count 135 L (150-450) k/uL Sodium (137-145) mmol/L Carbon Dioxide (22-30) mmol/L BUN (9-20) mg/dL Creatinine (0.66-1.25) mg/dL Glucose (74-99) mg/dL POC Glucose (mg/dL) 167 H 193 H (75-99) mg/dL Hemoglobin A1c (4.0-6.0) % Calcium (8.4-10.2) mg/dL Iron (65-175) ug/dL TIBC (228-460) ug/dL % Saturation (15.00-50.00) ALT (4-49) U/L Alkaline Phosphatase (38-126) U/L Total Protein (6.3-8.2) g/dL Albumin (3.5-5.0) g/dL 03/03/20 Range/Units 08:34 WBC (3.8-10.6) k/uL RBC (4.30-5.90) m/uL Hgb (13.0-17.5) gm/dL Hct (39.0-53.0) % MCV (80.0-100.0) fL MCH (25.0-35.0) pg MCHC (31.0-37.0) g/dL RDW (11.5-15.5) % Plt Count (150-450) k/uL Sodium 132 L (137-145) mmol/L Carbon Dioxide 20 L (22-30) mmol/L BUN 51 H (9-20) mg/dL Creatinine 2.45 H (0.66-1.25) mg/dL Glucose 229 H (74-99) mg/dL POC Glucose (mg/dL) (75-99) mg/dL Hemoglobin A1c (4.0-6.0) % Calcium 8.0 L (8.4-10.2) mg/dL Iron (65-175) ug/dL TIBC (228-460) ug/dL % Saturation (15.00-50.00) ALT 64 H (4-49) U/L Alkaline Phosphatase 221 H (38-126) U/L Total Protein 5.2 L (6.3-8.2) g/dL Albumin 2.7 L (3.5-5.0) g/dL Microbiology - Last 24 Hours (Table) 03/02/20 17:33 Gram Stain - Preliminary Elbow - Left Wound Culture - Preliminary 03/02/20 17:33 Anaerobic Culture - Preliminary Elbow - Left 02/27/20 17:03 Blood Culture - Preliminary Blood No Growth after 96 hours Assessment and Plan Plan: Assessment: 1. 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 Renal function stable. 2. Metabolic acidosis secondary to acute kidney injury maintained on bicarb drip. 3. Left forearm cellulitis maintained on antibiotics. 4. Anemia of chronic kidney disease. Iron deficiency noted. 5. Chronic kidney disease stage III with baseline creatinine near 1.8. 6. History of polycystic kidney disease status post bilateral nephrectomies. 7. Status post living unrelated renal allograft in 2002 at [facility]. Plan: Decreased bicarb drip to 50 mL an hour. Encouraged oral intake. Maintain antirejection medications. Avoid nephrotoxins. IV iron 3 doses. First dose today.
[2020-03-03 11:21] LABS: Glucose,Whole Blood 219 mg/dL (75-99)
[2020-03-03 11:58] LABS: Band Neutrophils % 3 %; Basophils # (M) 0.02 k/uL (0-0.2); Eosinophils # (M) 0.05 k/uL (0-0.7); Lymphocytes # (M) 0.24 k/uL (1.0-4.8); Monocytes # (M) 0.14 k/uL (0-1.0); Neutrophils % (M) 69 %; Nucleated Red Blood Cells 0 /100 WBC (0-0); Total Cells Counted 100
[2020-03-03 12:02] LABS: Poikilocytosis (M) Present
[2020-03-03] MEDS: DAPTOmycin 500 MG in SODIUM CHLORIDE 0.9% 50 ML IVPB SCH (14:16)
[2020-03-03] MEDS: SODIUM FERRIC GLUCONAT-SUCROSE 125 MG in SODIUM CHLORIDE 0.9% 100 ML IVPB SCH (15:16)
[2020-03-03 16:26] LABS: Glucose,Whole Blood 161 mg/dL (75-99)
[2020-03-03 20:26] LABS: Glucose,Whole Blood 184 mg/dL (75-99)
[2020-03-03] MEDS: atenoloL 50 MG TAB PO SCH (20:46)
--- NOTE | 2020-03-03 23:15 | P.PN ---
Subjective Progress Note Date: 03/03/20 Principal diagnosis: Left elbow bursitis Mr. Ng is a 74-year-old with past medical history of coronary artery disease, diabetes mellitus, hypertension, hyperlipidemia, renal disease, migraines, polycystic kidney disease status post kidney transplant done twice coming in with a chief complaint of left elbow pain. He has significant cellulitis, had I&D done by orthopedic surgery today, wound culture is currently pending. Patient is sitting up in the bed with his at the bedside. He states that his pain is better but he continues to have swelling in his fingers. Patient's vitals from this morning have been reviewed slightly elevated temperature at 99, blood pressure 149 x 78, saturating at 98% on room air. His labs from this morning showing white count of 1.6, hemoglobin 8.1, platelets 135. AST 41, ALT 64, alkaline phosphatase 221 and albumin is low at 2.7. He is currently getting antibiotics in the form of daptomycin and cefepime ID Dr. Mich forman on board and following the patient. Active Medications Hydrocodone Bitart/Acetaminophen (Atkinson 5-325) 1 each PO Q6HR PRN PRN Reason: Pain Scale 1 to 5 Hydrocodone Bitart/Acetaminophen (Atkinson 5-325) 2 each PO Q6HR PRN PRN Reason: Pain Scale 6 to 10 Last Admin: 03/03/20 22:29 Dose: 2 each Documented by: Apixaban (Eliquis) 5 mg PO BID@0900,2100 [facility] Last Admin: 03/03/20 20:46 Dose: 5 mg Documented by: Aspirin (Aspirin) 81 mg PO DAILY@0900 [facility] Last Admin: 03/03/20 08:29 Dose: 81 mg Documented by: Atenolol (Tenormin) 50 mg PO HS@2100 [facility] Last Admin: 03/03/20 20:46 Dose: 50 mg Documented by: Darbepoetin Pratik (Aranesp) 40 mcg SQ Q7D [facility] Last Admin: 03/02/20 13:43 Dose: 40 mcg Documented by: Ergocalciferol (Vitamin D2) 50,000 unit PO Q30D [facility] Ferrous Sulfate (Feosol) 325 mg PO DAILY@0900 [facility] Last Admin: 03/03/20 08:28 Dose: 325 mg Documented by: Hydralazine HCl (Apresoline) 25 mg PO BID@0900,2100 [facility] Last Admin: 03/03/20 20:46 Dose: 25 mg Documented by: Hydromorphone HCl (Dilaudid) 0.5 mg IVP Q3HR PRN PRN Reason: Moderate Pain Hydromorphone HCl (Dilaudid) 0.125 mg IVP Q3HR PRN PRN Reason: Pain Scale 1 to 3 Hydromorphone HCl (Dilaudid) 0.25 mg IVP Q3HR PRN PRN Reason: Pain Scale 4 to 6 Hydromorphone HCl (Dilaudid) 0.5 mg IVP Q3HR PRN PRN Reason: Pain Scale 7 to 10 Cefepime HCl 1 gm/ Sodium (Chloride) 50 mls @ 12.5 mls/hr IVPB Q12H [facility] Last Admin: 03/03/20 11:11 Dose: 12.5 mls/hr Documented by: Sodium Bicarbonate 150 ml/ (Dextrose/Water) 1,150 mls @ 50 mls/hr IV .Q23H [facility] Last Admin: 03/03/20 06:26 Dose: Not Given Documented by: Daptomycin 500 mg/ Sodium (Chloride) 50 mls @ 100 mls/hr IVPB Q48H [facility]; Protocol Last Admin: 03/03/20 14:16 Dose: 100 mls/hr Documented by: Ferric Sodium Gluconate 125 mg (/ Sodium Chloride) 110 mls @ 100 mls/hr IVPB DAILY [facility] Stop: 03/06/20 11:16 Last Admin: 03/03/20 15:16 Dose: 100 mls/hr Documented by: Insulin Aspart (Novolog) 0 unit SQ ACHS [facility]; Protocol Last Admin: 03/03/20 20:47 Dose: 2 unit Documented by: Insulin Human NPH (Humulin N) 10 unit SQ HS@2100 [facility] Last Admin: 03/03/20 20:47 Dose: 10 unit Documented by: Insulin Human NPH (Humulin N) 30 unit SQ AC-BRKFST@0900 [facility] Last Admin: 03/03/20 08:29 Dose: 30 unit Documented by: Multivitamins (Theragran) 1 each PO DAILY@0900 [facility] Last Admin: 03/03/20 08:29 Dose: 1 each Documented by: Naloxone HCl (Narcan) 0.2 mg IV Q2M PRN PRN Reason: Opioid Reversal Zortress [Everolimus (] 0.75mg Tablet) 2.25 mg PO BID@0900,2100 [facility] Last Admin: 03/03/20 20:46 Dose: 2.25 mg Documented by: Senna/Docusate Sodium (Senokot-S) 2 each PO HS PRN PRN Reason: Constipation Tacrolimus (Prograf) 1 mg PO BID@0900,2100 [facility] Last Admin: 03/03/20 20:47 Dose: 1 mg Documented by: Objective - Vital Signs Vital signs: Vital Signs Temp 99.0 F 03/03/20 14:24 Pulse 62 03/03/20 14:24 Resp 17 03/03/20 14:24 BP 149/78 03/03/20 14:24 Pulse Ox 98 03/03/20 14:24 Intake & Output 03/02/20 03/03/20 03/03/20 18:59 06:59 18:59 Intake Total 400 450 760 Output Total 10 Balance 390 450 760 Weight 74.843 kg Intake: IV 400 Oral 450 760 Output: Estimated Blood Loss 10 Other: Voiding Method Toilet Toilet # Voids 1 3 2 - Exam General appearance: alert, in no apparent distress Eye exam: Mild pallor, No icterus , NYDIA ENT exam: mucous membranes moist Respiratory exam: Few ronchi in lower lung ballesteros Cardiovascular Exam: regular rate, normal rhythm, normal heart sounds. GI/Abdominal exam: soft, normal bowel sounds. Non distended, No tenderness, No guarding Extremities exam: left arm is wrapped in [id number] bandage s/p I and D by ortho today NO pedal edema. - Labs CBC & Chem 7: 03/04/20 06:56 03/04/20 06:56 Labs: Abnormal Lab Results - Last 24 Hours (Table) 03/02/20 03/03/20 03/03/20 Range/Units 20:25 06:50 08:34 WBC 1.6 L (3.8-10.6) k/uL RBC 3.32 L (4.30-5.90) m/uL Hgb 8.1 L (13.0-17.5) gm/dL Hct 26.4 L (39.0-53.0) % MCV 79.6 L (80.0-100.0) fL MCH 24.4 L (25.0-35.0) pg MCHC 30.7 L (31.0-37.0) g/dL RDW 17.5 H (11.5-15.5) % Plt Count 135 L (150-450) k/uL Neutrophils # (Manual) 1.10 L (1.3-7.7) k/uL Lymphocytes # (Manual) 0.24 L (1.0-4.8) k/uL Sodium (137-145) mmol/L Carbon Dioxide (22-30) mmol/L BUN (9-20) mg/dL Creatinine (0.66-1.25) mg/dL Glucose (74-99) mg/dL POC Glucose (mg/dL) 167 H 193 H (75-99) mg/dL Calcium (8.4-10.2) mg/dL ALT (4-49) U/L Alkaline Phosphatase (38-126) U/L Total Protein (6.3-8.2) g/dL Albumin (3.5-5.0) g/dL 03/03/20 03/03/20 03/03/20 Range/Units 08:34 11:20 16:25 WBC (3.8-10.6) k/uL RBC (4.30-5.90) m/uL Hgb (13.0-17.5) gm/dL Hct (39.0-53.0) % MCV (80.0-100.0) fL MCH (25.0-35.0) pg MCHC (31.0-37.0) g/dL RDW (11.5-15.5) % Plt Count (150-450) k/uL Neutrophils # (Manual) (1.3-7.7) k/uL Lymphocytes # (Manual) (1.0-4.8) k/uL Sodium 132 L (137-145) mmol/L Carbon Dioxide 20 L (22-30) mmol/L BUN 51 H (9-20) mg/dL Creatinine 2.45 H (0.66-1.25) mg/dL Glucose 229 H (74-99) mg/dL POC Glucose (mg/dL) 219 H 161 H (75-99) mg/dL Calcium 8.0 L (8.4-10.2) mg/dL ALT 64 H (4-49) U/L Alkaline Phosphatase 221 H (38-126) U/L Total Protein 5.2 L (6.3-8.2) g/dL Albumin 2.7 L (3.5-5.0) g/dL Microbiology - Last 24 Hours (Table) 03/02/20 17:33 Gram Stain - Preliminary Elbow - Left Wound Culture - Preliminary 03/02/20 17:33 Anaerobic Culture - Preliminary Elbow - Left 02/27/20 17:03 Blood Culture - Preliminary Blood No Growth after 96 hours Assessment and Plan Assessment: ASSESSMENT Left elbow olecranon bursitis Cellulitis of the left upper extremity Pancytopenia Hyponatremia Acute on chronic kidney injury CKD stage III Transaminitis Hypoalbuminemia with mild protein calorie malnutrition CAD status post CABG Type 2 diabetes mellitus Hypertension History of migraine headaches History of polycystic kidney disease status post kidney transplant Immunocompromised PLAN: Patient will be continued on antibiotics in the form of cefepime and daptomycin until the wound cultures are back. Discussed with his regarding pancytopenia, she states that his white count is on the lower side, due to the immunosuppressants he is on for kidney transplant. She mentions that he had followed up with hematology as outpatient couple of times. Multiple consultants including nephrology, ID, orthopedics following the patient closely. We will continue to follow the patient closely and further recommendations depending on the progress of the patient.
--- NOTE | 2020-03-03 23:46 | PN ---
PROGRESS NOTE DATE OF SERVICE: 03/03/2020 REASON FOR FOLLOWUP: Left elbow septic olecranon bursitis with left arm cellulitis. INTERVAL HISTORY: Patient is currently afebrile, has been breathing comfortably. The patient denies having any chest pain or shortness of breath or cough. No nausea, vomiting. No abdominal pain. Overall pain and discomfort to the left upper extremity has decreased. PHYSICAL EXAMINATION: Blood pressure 149/78 with a pulse of 72, temperature 99. He is 98% on room air. General description is an elderly male up in the chair in no distress. Respiratory system: Unlabored breathing. Clear to auscultation anteriorly. Heart S1, S2. Regular rate and rhythm. Abdomen soft, no tenderness. Left upper arm is currently dressed up. No obvious drainage on the dressing. LABS: Hemoglobin 8.1, white count 1.62. Local culture with Staph aureus. DIAGNOSTIC IMPRESSION AND PLAN: Patient with left elbow septic olecranon bursitis with secondary cellulitis of left arm, status post bursectomy and drainage of the abscess. Culture, Staph aureus. Patient is covered with cefepime and daptomycin to continue. Will need midline for outpatient IV antibiotic. at the bedside, questions answered. MMODL / IJN: [id number] /
[2020-03-04] MEDS: CEFEPIME 1 GM in SODIUM CHLORIDE 0.9% 50 ML IVPB SCH ×3 (00:18→23:22)
[2020-03-04] MEDS: DEXTROSE 5% IN WATER 1,000 ML with SODIUM BICARB (1 MEQ/ML) 150 ML IV SCH (04:16)
[2020-03-04 06:49] LABS: Glucose,Whole Blood 102 mg/dL (75-99)
[2020-03-04] MEDS: INSULIN ASPART (NovoLOG) 100 UNIT/ML VIAL SQ SCH ×4 (07:03→20:07)
[2020-03-04 07:45] LABS: Albumin 2.7 g/dL (3.5-5.0); Calcium 7.9 mg/dL (8.4-10.2); Magnesium 1.8 mg/dL (1.6-2.3); Potassium 4.4 mmol/L (3.5-5.1); Total Bilirubin 0.7 mg/dL (0.2-1.3); Total Protein 5.3 g/dL (6.3-8.2)
[2020-03-04 08:01] LABS: Anisocytosis Slight; Basophils % (A) 0 %; Eosinophils # (A) 0.1 k/uL (0-0.7); Eosinophils % (A) 3 %; HCT 27.1 % (39.0-53.0); HGB 8.7 gm/dL (13.0-17.5); Hypochromasia Slight; Lymphocytes # (A) 0.2 k/uL (1.0-4.8); Lymphocytes % (A) 11 %; MCH 24.7 pg (25.0-35.0); MCHC 32.1 g/dL (31.0-37.0); Mean Platelet Volume 9.2; Microcytosis Slight; Monocytes # (A) 0.2 k/uL (0-1.0); Monocytes % (A) 10 %; Neutrophils # (A) 1.5 k/uL (1.3-7.7); Neutrophils % (A) 74 %; Platelet Count 137 k/uL (150-450); RBC 3.52 m/uL (4.30-5.90); RDW 17.1 % (11.5-15.5)
[2020-03-04] MEDS: FERROUS SULFATE 325 MG TAB PO SCH (08:10)
[2020-03-04] MEDS: SODIUM FERRIC GLUCONAT-SUCROSE 125 MG in SODIUM CHLORIDE 0.9% 100 ML IVPB SCH (08:10)
[2020-03-04] MEDS: TACROLIMUS 1 MG CAP PO SCH ×2 (08:10→19:58)
[2020-03-04] MEDS: APIXABAN 5 MG TAB PO SCH ×2 (08:10→19:58)
[2020-03-04] MEDS: INSULIN NPH 300 UNIT/3 ML VIAL SQ SCH ×2 (08:10→20:08)
[2020-03-04] MEDS: ASPIRIN 81 MG PO SCH (08:10)
[2020-03-04] MEDS: hydrALAZINE HCL 25 MG TAB PO SCH ×2 (08:10→19:58)
[2020-03-04] MEDS: MULTIVITAMINS, THERA 1 EACH TAB PO SCH (08:10)
[2020-03-04] MEDS: ZORTRESS 0.75 MG PO SCH ×2 (08:11→19:58)
--- NOTE | 2020-03-04 09:57 | P.PN ---
Subjective Progress Note Date: 03/04/20 This is a 74-year-old male who is status post incision and drainage of left olecranon bursa. This is postoperative day #2 and patient is seen and evaluated at bedside. Patient reports continued improvement in swelling. Patient states that his pain is well-controlled. Patient denies any new complaints today. Patient denies any fever/chills, numbness, weakness, tingling, abdominal pain, shortness of breath or chest pain. Objective - Vital Signs Vital signs: Vital Signs Temp 98.2 F 03/04/20 07:32 Pulse 67 03/04/20 07:32 Resp 14 03/04/20 07:32 BP 134/83 03/04/20 07:32 Pulse Ox 94 L 03/04/20 07:32 Intake & Output 03/03/20 03/04/20 03/04/20 18:59 06:59 18:59 Intake Total 760 240 Balance 760 240 Intake: Oral 760 240 Other: # Voids 2 2 - Exam Vital signs are stable. Patient is in no acute distress and is alert and oriented 3. Surgical dressing is removed. Incision is clean, dry and intact. There is no active drainage. There is mild erythema. There is mild edema in the left forearm. Patient has good range of motion of the left elbow, wrist and hand. Sensation is intact. The left upper extremity is warm and well perfused. Neurovascular status and circulatory status are intact. - Labs CBC & Chem 7: 03/04/20 06:56 03/04/20 06:56 Labs: Abnormal Lab Results - Last 24 Hours (Table) 03/03/20 03/03/20 03/03/20 Range/Units 08:34 11:20 16:25 WBC 1.6 L (3.8-10.6) k/uL RBC 3.32 L (4.30-5.90) m/uL Hgb 8.1 L (13.0-17.5) gm/dL Hct 26.4 L (39.0-53.0) % MCV 79.6 L (80.0-100.0) fL MCH 24.4 L (25.0-35.0) pg MCHC 30.7 L (31.0-37.0) g/dL RDW 17.5 H (11.5-15.5) % Plt Count 135 L (150-450) k/uL Neutrophils # (Manual) 1.10 L (1.3-7.7) k/uL Lymphocytes # (1.0-4.8) k/uL Lymphocytes # (Manual) 0.24 L (1.0-4.8) k/uL Sodium (137-145) mmol/L BUN (9-20) mg/dL Creatinine (0.66-1.25) mg/dL POC Glucose (mg/dL) 219 H 161 H (75-99) mg/dL Calcium (8.4-10.2) mg/dL ALT (4-49) U/L Alkaline Phosphatase (38-126) U/L Total Protein (6.3-8.2) g/dL Albumin (3.5-5.0) g/dL 03/03/20 03/04/20 03/04/20 Range/Units 20:24 06:48 06:56 WBC 2.0 L (3.8-10.6) k/uL RBC 3.52 L (4.30-5.90) m/uL Hgb 8.7 L (13.0-17.5) gm/dL Hct 27.1 L (39.0-53.0) % MCV 77.0 L (80.0-100.0) fL MCH 24.7 L (25.0-35.0) pg MCHC (31.0-37.0) g/dL RDW 17.1 H (11.5-15.5) % Plt Count 137 L (150-450) k/uL Neutrophils # (Manual) (1.3-7.7) k/uL Lymphocytes # 0.2 L (1.0-4.8) k/uL Lymphocytes # (Manual) (1.0-4.8) k/uL Sodium (137-145) mmol/L BUN (9-20) mg/dL Creatinine (0.66-1.25) mg/dL POC Glucose (mg/dL) 184 H 102 H (75-99) mg/dL Calcium (8.4-10.2) mg/dL ALT (4-49) U/L Alkaline Phosphatase (38-126) U/L Total Protein (6.3-8.2) g/dL Albumin (3.5-5.0) g/dL 03/04/20 Range/Units 06:56 WBC (3.8-10.6) k/uL RBC (4.30-5.90) m/uL Hgb (13.0-17.5) gm/dL Hct (39.0-53.0) % MCV (80.0-100.0) fL MCH (25.0-35.0) pg MCHC (31.0-37.0) g/dL RDW (11.5-15.5) % Plt Count (150-450) k/uL Neutrophils # (Manual) (1.3-7.7) k/uL Lymphocytes # (1.0-4.8) k/uL Lymphocytes # (Manual) (1.0-4.8) k/uL Sodium 132 L (137-145) mmol/L BUN 47 H (9-20) mg/dL Creatinine 2.56 H (0.66-1.25) mg/dL POC Glucose (mg/dL) (75-99) mg/dL Calcium 7.9 L (8.4-10.2) mg/dL ALT 67 H (4-49) U/L Alkaline Phosphatase 233 H (38-126) U/L Total Protein 5.3 L (6.3-8.2) g/dL Albumin 2.7 L (3.5-5.0) g/dL Microbiology - Last 24 Hours (Table) 03/02/20 17:33 Gram Stain - Preliminary Elbow - Left Wound Culture - Preliminary Presumptive Staph aureus 02/27/20 17:03 Blood Culture - Preliminary Blood No Growth after 120 hours Assessment and Plan (1) Osteoarthritis of left elbow Current Visit: Yes Status: Acute Code(s): M19.022 - PRIMARY OSTEOARTHRITIS, LEFT ELBOW SNOMED Code(s): 122210931862512 (2) Cellulitis of left arm Current Visit: Yes Status: Acute Code(s): L03.114 - CELLULITIS OF LEFT UPPER LIMB SNOMED Code(s): 643437706 (3) Failure of outpatient treatment Current Visit: Yes Status: Acute Code(s): Z78.9 - OTHER SPECIFIED HEALTH STATUS SNOMED Code(s): 684080642 Plan: 1. Continue routine postoperative care and pain control. 2. Daily dressing changes. Keep the incision clean, dry and intact. 3. IV antibiotics per infectious disease. 4. Cultures are showing presumptive staph aureus. 5. Will continue to follow the patient closely.
--- NOTE | 2020-03-04 10:12 | P.PN ---
Subjective Patient is seen in follow-up for acute kidney injury on chronic kidney disease. Renal function is fairly stable. Oral intake is good. No vomiting. No diarrhea. Currently maintained on a bicarbonate drip. He's being treated for left upper extremity cellulitis. Wants to go home. Vital signs are stable. General: The patient appeared well nourished and normally developed. HEENT: Head exam is unremarkable. Neck is without jugular venous distension. LUNGS: Breath sounds decreased. HEART: Rate and Rhythm are regular. ABDOMEN: Soft, non-tender. EXTREMITITES: No edema. Objective - Vital Signs Vital signs: Vital Signs Temp 98.2 F 03/04/20 07:32 Pulse 67 03/04/20 07:32 Resp 14 03/04/20 07:32 BP 134/83 03/04/20 07:32 Pulse Ox 94 L 03/04/20 07:32 Intake & Output 03/03/20 03/04/20 03/04/20 18:59 06:59 18:59 Intake Total 760 240 Balance 760 240 Intake: Oral 760 240 Other: # Voids 2 2 - Labs CBC & Chem 7: 03/04/20 06:56 03/04/20 06:56 Labs: Abnormal Lab Results - Last 24 Hours (Table) 03/03/20 03/03/20 03/03/20 Range/Units 08:34 11:20 16:25 WBC (3.8-10.6) k/uL RBC (4.30-5.90) m/uL Hgb (13.0-17.5) gm/dL Hct (39.0-53.0) % MCV (80.0-100.0) fL MCH (25.0-35.0) pg RDW (11.5-15.5) % Plt Count (150-450) k/uL Neutrophils # (Manual) 1.10 L (1.3-7.7) k/uL Lymphocytes # (1.0-4.8) k/uL Lymphocytes # (Manual) 0.24 L (1.0-4.8) k/uL Sodium (137-145) mmol/L BUN (9-20) mg/dL Creatinine (0.66-1.25) mg/dL POC Glucose (mg/dL) 219 H 161 H (75-99) mg/dL Calcium (8.4-10.2) mg/dL ALT (4-49) U/L Alkaline Phosphatase (38-126) U/L Total Protein (6.3-8.2) g/dL Albumin (3.5-5.0) g/dL 03/03/20 03/04/20 03/04/20 Range/Units 20:24 06:48 06:56 WBC 2.0 L (3.8-10.6) k/uL RBC 3.52 L (4.30-5.90) m/uL Hgb 8.7 L (13.0-17.5) gm/dL Hct 27.1 L (39.0-53.0) % MCV 77.0 L (80.0-100.0) fL MCH 24.7 L (25.0-35.0) pg RDW 17.1 H (11.5-15.5) % Plt Count 137 L (150-450) k/uL Neutrophils # (Manual) (1.3-7.7) k/uL Lymphocytes # 0.2 L (1.0-4.8) k/uL Lymphocytes # (Manual) (1.0-4.8) k/uL Sodium (137-145) mmol/L BUN (9-20) mg/dL Creatinine (0.66-1.25) mg/dL POC Glucose (mg/dL) 184 H 102 H (75-99) mg/dL Calcium (8.4-10.2) mg/dL ALT (4-49) U/L Alkaline Phosphatase (38-126) U/L Total Protein (6.3-8.2) g/dL Albumin (3.5-5.0) g/dL 03/04/20 Range/Units 06:56 WBC (3.8-10.6) k/uL RBC (4.30-5.90) m/uL Hgb (13.0-17.5) gm/dL Hct (39.0-53.0) % MCV (80.0-100.0) fL MCH (25.0-35.0) pg RDW (11.5-15.5) % Plt Count (150-450) k/uL Neutrophils # (Manual) (1.3-7.7) k/uL Lymphocytes # (1.0-4.8) k/uL Lymphocytes # (Manual) (1.0-4.8) k/uL Sodium 132 L (137-145) mmol/L BUN 47 H (9-20) mg/dL Creatinine 2.56 H (0.66-1.25) mg/dL POC Glucose (mg/dL) (75-99) mg/dL Calcium 7.9 L (8.4-10.2) mg/dL ALT 67 H (4-49) U/L Alkaline Phosphatase 233 H (38-126) U/L Total Protein 5.3 L (6.3-8.2) g/dL Albumin 2.7 L (3.5-5.0) g/dL Microbiology - Last 24 Hours (Table) 03/02/20 17:33 Gram Stain - Preliminary Elbow - Left Wound Culture - Preliminary Presumptive Staph aureus 02/27/20 17:03 Blood Culture - Preliminary Blood No Growth after 120 hours Assessment and Plan Plan: Assessment: 1. 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 Renal function fairly stable. 2. Metabolic acidosis secondary to acute kidney injury maintained on bicarb drip. Better. 3. Left forearm cellulitis maintained on antibiotics. 4. Anemia of chronic kidney disease maintained on Aranesp. Iron deficiency noted. 5. Chronic kidney disease stage III with baseline creatinine near 1.8. 6. History of polycystic kidney disease status post bilateral nephrectomies. 7. Status post living unrelated renal allograft in 2002 at [facility]. Plan: Hep-Lock IV fluids. Encouraged oral intake. Maintain antirejection medications. Avoid nephrotoxins. IV iron 3 doses. Second dose today.
[2020-03-04 11:16] LABS: Glucose,Whole Blood 144 mg/dL (75-99)
[2020-03-04 12:51] VITALS: BMI 25.8
--- NOTE | 2020-03-04 14:25 | P.PN ---
Subjective Progress Note Date: 03/04/20 Principal diagnosis: Left elbow bursitis, Possible MRSA Mr. Ng is a 74-year-old with past medical history of coronary artery disease, diabetes mellitus, hypertension, hyperlipidemia, renal disease, migraines, polycystic kidney disease status post kidney transplant done twice coming in with a chief complaint of left elbow pain. He has significant cellulitis, had I&D done by orthopedic surgery today, wound culture is currently pending. Patient is sitting up in the bed with his at the bedside. He states that his pain is better but he continues to have swelling in his fingers. Patient's vitals from this morning have been reviewed slightly elevated temp erature at 99, blood pressure 149 x 78, saturating at 98% on room air. His labs from this morning showing white count of 1.6, hemoglobin 8.1, platelets 135. AST 41, ALT 64, alkaline phosphatase 221 and albumin is low at 2.7. He is currently getting antibiotics in the form of daptomycin and cefepime ID Dr. Boyle on board and following the patient. on 03/04/2020-no acute events reported by nursing staff.patient is comfortably sitting up in a chair by the bedside. He states that his left elbow pain is better. But still complains of swelling of his fingers. Patient denies having anyfever chills or rigors. No chest pain or palpitations. No cough or difficulty breathing. No abdominal pain nausea vomiting or diarrhea.patient's vitals reviewed, low-grade fever of 99.5 last night. Blood pressure 134/83, and saturating at 94% on room air.cultures from the left elbow showing presumptive staph aureus. Patient is currently on antibodies in the form of vancomycin and cefepime. No acute changes in his CBC or his electrolytes. Active Medications Hydrocodone Bitart/Acetaminophen (Hope 5-325) 1 each PO Q6HR PRN PRN Reason: Pain Scale 1 to 5 Hydrocodone Bitart/Acetaminophen (Hope 5-325) 2 each PO Q6HR PRN PRN Reason: Pain Scale 6 to 10 Last Admin: 03/03/20 22:29 Dose: 2 each Documented by: Apixaban (Eliquis) 5 mg PO BID@0900,2100 [facility] Last Admin: 03/04/20 08:10 Dose: 5 mg Documented by: Aspirin (Aspirin) 81 mg PO DAILY@0900 [facility] Last Admin: 03/04/20 08:10 Dose: 81 mg Documented by: Atenolol (Tenormin) 50 mg PO HS@2100 [facility] Last Admin: 03/03/20 20:46 Dose: 50 mg Documented by: Darbepoetin Pratik (Aranesp) 40 mcg SQ Q7D [facility] Last Admin: 03/02/20 13:43 Dose: 40 mcg Documented by: Ergocalciferol (Vitamin D2) 50,000 unit PO Q30D [facility] Ferrous Sulfate (Feosol) 325 mg PO DAILY@0900 [facility] Last Admin: 03/04/20 08:10 Dose: 325 mg Documented by: Hydralazine HCl (Apresoline) 25 mg PO BID@0900,2099 [facility] Last Admin: 03/04/20 08:10 Dose: 25 mg Documented by: Hydromorphone HCl (Dilaudid) 0.5 mg IVP Q3HR PRN PRN Reason: Moderate Pain Hydromorphone HCl (Dilaudid) 0.125 mg IVP Q3HR PRN PRN Reason: Pain Scale 1 to 3 Hydromorphone HCl (Dilaudid) 0.25 mg IVP Q3HR PRN PRN Reason: Pain Scale 4 to 6 Hydromorphone HCl (Dilaudid) 0.5 mg IVP Q3HR PRN PRN Reason: Pain Scale 7 to 10 Cefepime HCl 1 gm/ Sodium (Chloride) 50 mls @ 12.5 mls/hr IVPB Q12H [facility] Last Admin: 03/04/20 11:25 Dose: 12.5 mls/hr Documented by: Daptomycin 500 mg/ Sodium (Chloride) 50 mls @ 100 mls/hr IVPB Q48H [facility]; Protocol Last Admin: 03/03/20 14:16 Dose: 100 mls/hr Documented by: Ferric Sodium Gluconate 125 mg (/ Sodium Chloride) 110 mls @ 100 mls/hr IVPB DAILY [facility] Stop: 03/06/20 11:16 Last Admin: 03/04/20 08:10 Dose: 100 mls/hr Documented by: Insulin Aspart (Novolog) 0 unit SQ ACHS [facility]; Protocol Last Admin: 03/04/20 11:24 Dose: 1 unit Documented by: Insulin Human NPH (Humulin N) 10 unit SQ HS@2100 [facility] Last Admin: 03/03/20 20:47 Dose: 10 unit Documented by: Insulin Human NPH (Humulin N) 30 unit SQ AC-BRKFST@09 [facility] Last Admin: 03/04/20 08:10 Dose: 30 unit Documented by: Multivitamins (Theragran) 1 each PO DAILY@0900 [facility] Last Admin: 03/04/20 08:10 Dose: 1 each Documented by: Naloxone HCl (Narcan) 0.2 mg IV Q2M PRN PRN Reason: Opioid Reversal Zortress [Everolimus (] 0.75mg Tablet) 2.25 mg PO BID@899,2099 [facility] Last Admin: 03/04/20 08:11 Dose: 2.25 mg Documented by: Senna/Docusate Sodium (Senokot-S) 2 each PO HS PRN PRN Reason: Constipation Tacrolimus (Prograf) 1 mg PO BID@899,2099 [facility] Last Admin: 03/04/20 08:10 Dose: 1 mg Documented by: Objective - Vital Signs Vital signs: Vital Signs Temp 98.2 F 03/04/20 07:32 Pulse 67 03/04/20 07:32 Resp 14 03/04/20 07:32 BP 134/83 03/04/20 07:32 Pulse Ox 94 L 03/04/20 07:32 Intake & Output 03/03/20 03/04/20 03/04/20 18:59 06:59 18:59 Intake Total 760 240 Balance 760 240 Weight 74.843 kg Intake: Oral 760 240 Other: # Voids 2 2 - Exam PHYSICAL EXAM General appearance: alert, in no apparent distress Eye exam: Mild pallor, No icterus , NYDIA ENT exam: mucous membranes moist Respiratory exam: Few ronchi in lower lung ballesteros Cardiovascular Exam: regular rate, normal rhythm, normal heart sounds. GI/Abdominal exam: soft, normal bowel sounds. Non distended, No tenderness, No guarding Extremities exam: left arm is wrapped in EDMUNDO bandage s/p I and D by ortho today. Edema of the left hand fingers. NO pedal edema. - Labs CBC & Chem 7: 03/04/20 06:56 03/04/20 06:56 Labs: Abnormal Lab Results - Last 24 Hours (Table) 03/03/20 03/03/20 03/04/20 Range/Units 16:25 20:24 06:48 WBC (3.8-10.6) k/uL RBC (4.30-5.90) m/uL Hgb (13.0-17.5) gm/dL Hct (39.0-53.0) % MCV (80.0-100.0) fL MCH (25.0-35.0) pg RDW (11.5-15.5) % Plt Count (150-450) k/uL Lymphocytes # (1.0-4.8) k/uL Sodium (137-145) mmol/L BUN (9-20) mg/dL Creatinine (0.66-1.25) mg/dL POC Glucose (mg/dL) 161 H 184 H 102 H (75-99) mg/dL Calcium (8.4-10.2) mg/dL ALT (4-49) U/L Alkaline Phosphatase (38-126) U/L Total Protein (6.3-8.2) g/dL Albumin (3.5-5.0) g/dL 03/04/20 03/04/20 03/04/20 Range/Units 06:56 06:56 11:14 WBC 2.0 L (3.8-10.6) k/uL RBC 3.52 L (4.30-5.90) m/uL Hgb 8.7 L (13.0-17.5) gm/dL Hct 27.1 L (39.0-53.0) % MCV 77.0 L (80.0-100.0) fL MCH 24.7 L (25.0-35.0) pg RDW 17.1 H (11.5-15.5) % Plt Count 137 L (150-450) k/uL Lymphocytes # 0.2 L (1.0-4.8) k/uL Sodium 132 L (137-145) mmol/L BUN 47 H (9-20) mg/dL Creatinine 2.56 H (0.66-1.25) mg/dL POC Glucose (mg/dL) 144 H (75-99) mg/dL Calcium 7.9 L (8.4-10.2) mg/dL ALT 67 H (4-49) U/L Alkaline Phosphatase 233 H (38-126) U/L Total Protein 5.3 L (6.3-8.2) g/dL Albumin 2.7 L (3.5-5.0) g/dL Microbiology - Last 24 Hours (Table) 03/02/20 17:33 Gram Stain - Preliminary Elbow - Left Wound Culture - Preliminary Presumptive Staph aureus 02/27/20 17:03 Blood Culture - Preliminary Blood No Growth after 120 hours Assessment and Plan Assessment: ASSESSMENT Left elbow olecranon bursitis Cellulitis of the left upper extremity Pancytopenia Hyponatremia Acute on chronic kidney injury CKD stage III Transaminitis Hypoalbuminemia with mild protein calorie malnutrition CAD status post CABG Type 2 diabetes mellitus Hypertension History of migraine headaches History of polycystic kidney disease status post kidney transplant Immunocompromised PLAN: Patient will be continued on antibiotics in the form of cefepime and daptomycin, left elbow wound cultures showing presumptive staph aureus. Discussed with his regarding pancytopenia, she states that his white count is on the lower side, due to the immunosuppressants he is on for kidney transplant. She mentions that he had followed up with hematology as outpatient couple of times. Multiple consultants including nephrology, ID, orthopedics following the patient closely. We will continue to follow the patient closely and further recommendations depending on the progress of the patient.
[2020-03-04 16:55] LABS: Glucose,Whole Blood 84 mg/dL (75-99)
[2020-03-04] MEDS: atenoloL 50 MG TAB PO SCH (19:58)
[2020-03-04] MEDS: HYDROcodone/APAP 5-325MG 1 EACH TAB PO PRN (19:59)
[2020-03-04 20:04] LABS: Glucose,Whole Blood 183 mg/dL (75-99)
--- NOTE | 2020-03-05 00:41 | PN ---
PROGRESS NOTE DATE OF SERVICE: 03/04/2020 REASON FOR FOLLOWUP: Left elbow olecranon bursitis and left arm cellulitis. INTERVAL HISTORY: The patient is currently afebrile. The patient is breathing comfortably. Patient denies having any chest pain or shortness of breath or cough. No nausea or vomiting. No abdominal pain or pain to the left elbow area. PHYSICAL EXAMINATION: Blood pressure 151/78 with a pulse of 66, temperature 99.8. He is 93% on room air. General description is an elderly male up in the bed in no distress. RESPIRATORY SYSTEM: Unlabored breathing and is clear to auscultation anteriorly. HEART: S1, S2. Regular rate and rhythm. ABDOMEN: Soft, no tenderness. Left elbow overall swelling has slightly decreased. LABS: Culture with Staph aureus, sensitivities currently pending. DIAGNOSTIC IMPRESSION AND PLAN: Patient with left elbow septic olecranon bursitis with left arm cellulitis. Patient is covered with daptomycin and cefepime that will be continued while waiting for the culture to finalize. He will need a Midline for outpatient IV antibiotic. at the bedside. Questions were answered. MMODL / IJN: [id number] /
[2020-03-05 07:20] LABS: Glucose,Whole Blood 103 mg/dL (75-99)
[2020-03-05 07:42] VITALS: TEMP 98.4
[2020-03-05] MEDS: INSULIN ASPART (NovoLOG) 100 UNIT/ML VIAL SQ SCH ×2 (08:03→12:34)
[2020-03-05 08:09] LABS: Anisocytosis Slight; Basophils % (A) 1 %; Eosinophils # (A) 0.1 k/uL (0-0.7); Eosinophils % (A) 4 %; HCT 25.2 % (39.0-53.0); HGB 8.1 gm/dL (13.0-17.5); Hypochromasia Moderate; Lymphocytes # (A) 0.2 k/uL (1.0-4.8); Lymphocytes % (A) 10 %; MCH 24.6 pg (25.0-35.0); MCHC 32.3 g/dL (31.0-37.0); MCV 76.2 fL (80.0-100.0); Mean Platelet Volume 9.5; Microcytosis Slight; Monocytes # (A) 0.1 k/uL (0-1.0); Monocytes % (A) 8 %; Neutrophils # (A) 1.2 k/uL (1.3-7.7); Neutrophils % (A) 74 %; Platelet Count 127 k/uL (150-450); RDW 17.3 % (11.5-15.5); WBC 1.6 k/uL (3.8-10.6)
[2020-03-05] MEDS: ZORTRESS 0.75 MG PO SCH (08:11)
[2020-03-05] MEDS: TACROLIMUS 1 MG CAP PO SCH (08:11)
[2020-03-05] MEDS: APIXABAN 5 MG TAB PO SCH (08:11)
[2020-03-05] MEDS: ASPIRIN 81 MG PO SCH (08:11)
[2020-03-05] MEDS: hydrALAZINE HCL 25 MG TAB PO SCH (08:11)
[2020-03-05] MEDS: FERROUS SULFATE 325 MG TAB PO SCH (08:11)
[2020-03-05] MEDS: MULTIVITAMINS, THERA 1 EACH TAB PO SCH (08:11)
[2020-03-05] MEDS: INSULIN NPH 300 UNIT/3 ML VIAL SQ SCH (08:13)
[2020-03-05 08:18] LABS: Potassium 4.3 mmol/L (3.5-5.1)
[2020-03-05] MEDS: SODIUM FERRIC GLUCONAT-SUCROSE 125 MG in SODIUM CHLORIDE 0.9% 100 ML IVPB SCH (08:47)
--- NOTE | 2020-03-05 09:05 | P.PN ---
Subjective Progress Note Date: 03/05/20 This is a 74-year-old male who is status post incision and drainage of left olecranon bursa. This is postoperative day #3 and patient is seen and evaluated at bedside. Patient states that his pain is well-controlled and he denies any new complaints today. Patient denies any fever/chills, numbness, weakness, tingling, abdominal pain, shortness of breath or chest pain. Objective - Vital Signs Vital signs: Vital Signs Temp 98.4 F 03/05/20 07:41 Pulse 66 03/05/20 07:41 Resp 17 03/05/20 07:41 BP 152/81 03/05/20 07:41 Pulse Ox 92 L 03/05/20 07:41 Intake & Output 03/04/20 03/05/20 03/05/20 18:59 06:59 18:59 Intake Total 240 Balance 240 Weight 74.843 kg Intake: Oral 240 Other: # Voids 3 2 # Bowel Movements 1 - Exam Vital signs are stable. Patient is in no acute distress and is alert and oriented 3. Dressing is clean, dry and intact. Patient has good range of motion of the left elbow, wrist and hand. Sensation is intact. The left upper extremity is warm and well perfused. Neurovascular status and circulatory status are intact. - Labs CBC & Chem 7: 03/05/20 07:40 03/05/20 07:40 Labs: Abnormal Lab Results - Last 24 Hours (Table) 03/04/20 03/04/20 03/05/20 Range/Units 11:14 20:03 07:18 WBC (3.8-10.6) k/uL RBC (4.30-5.90) m/uL Hgb (13.0-17.5) gm/dL Hct (39.0-53.0) % MCV (80.0-100.0) fL MCH (25.0-35.0) pg RDW (11.5-15.5) % Plt Count (150-450) k/uL Sodium (137-145) mmol/L BUN (9-20) mg/dL Creatinine (0.66-1.25) mg/dL POC Glucose (mg/dL) 144 H 183 H 103 H (75-99) mg/dL Calcium (8.4-10.2) mg/dL 03/05/20 03/05/20 Range/Units 07:40 07:40 WBC 1.6 L (3.8-10.6) k/uL RBC 3.30 L (4.30-5.90) m/uL Hgb 8.1 L (13.0-17.5) gm/dL Hct 25.2 L (39.0-53.0) % MCV 76.2 L (80.0-100.0) fL MCH 24.6 L (25.0-35.0) pg RDW 17.3 H (11.5-15.5) % Plt Count 127 L (150-450) k/uL Sodium 132 L (137-145) mmol/L BUN 46 H (9-20) mg/dL Creatinine 2.43 H (0.66-1.25) mg/dL POC Glucose (mg/dL) (75-99) mg/dL Calcium 8.0 L (8.4-10.2) mg/dL Microbiology - Last 24 Hours (Table) 03/02/20 17:33 Gram Stain - Final Elbow - Left Wound Culture - Final Staphylococcus aureus 03/02/20 17:33 Anaerobic Culture - Preliminary Elbow - Left 02/27/20 17:03 Blood Culture - Final Blood No Growth after 144 hours Assessment and Plan (1) Osteoarthritis of left elbow Current Visit: Yes Status: Acute Code(s): M19.022 - PRIMARY OSTEOARTHRITIS, LEFT ELBOW SNOMED Code(s): 555901426486004 (2) Cellulitis of left arm Current Visit: Yes Status: Acute Code(s): L03.114 - CELLULITIS OF LEFT UPPER LIMB SNOMED Code(s): 950912225 (3) Failure of outpatient treatment Current Visit: Yes Status: Acute Code(s): Z78.9 - OTHER SPECIFIED HEALTH STATUS SNOMED Code(s): 619074233 Plan: 1. Continue routine postoperative care and pain control. 2. Daily dressing changes. Keep the incision clean, dry and intact. 3. IV antibiotics per infectious disease. 4. Cultures are final for staph aureus. 5. Cleared for discharge from an orthopedic standpoint once IV antibiotics have been determined by infectious disease.
[2020-03-05 09:34] LABS: Poikilocytosis (M) Present; Rouleaux Present
[2020-03-05 11:31] LABS: Glucose,Whole Blood 127 mg/dL (75-99)
[2020-03-05] MEDS: CEFEPIME 1 GM in SODIUM CHLORIDE 0.9% 50 ML IVPB SCH (12:34)
--- NOTE | 2020-03-05 12:37 | P.PN ---
Subjective Patient is seen in follow-up for acute kidney injury on chronic kidney disease. Renal function is fairly stable. Oral intake is good. No vomiting. No diarrhea. He's being treated for left upper extremity cellulitis. Wants to go home. Vital signs are stable. General: The patient appeared well nourished and normally developed. HEENT: Head exam is unremarkable. Neck is without jugular venous distension. LUNGS: Breath sounds decreased. HEART: Rate and Rhythm are regular. ABDOMEN: Soft, non-tender. EXTREMITITES: No edema. Objective - Vital Signs Vital signs: Vital Signs Temp 98.4 F 03/05/20 07:41 Pulse 66 03/05/20 07:41 Resp 17 03/05/20 07:41 BP 152/81 03/05/20 07:41 Pulse Ox 92 L 03/05/20 07:41 Intake & Output 03/04/20 03/05/20 03/05/20 18:59 06:59 18:59 Intake Total 240 Balance 240 Weight 74.843 kg Intake: Oral 240 Other: Voiding Method Toilet # Voids 3 2 # Bowel Movements 1 - Labs CBC & Chem 7: 03/05/20 07:40 03/05/20 07:40 Labs: Abnormal Lab Results - Last 24 Hours (Table) 03/04/20 03/05/20 03/05/20 Range/Units 20:03 07:18 07:40 WBC 1.6 L (3.8-10.6) k/uL RBC 3.30 L (4.30-5.90) m/uL Hgb 8.1 L (13.0-17.5) gm/dL Hct 25.2 L (39.0-53.0) % MCV 76.2 L (80.0-100.0) fL MCH 24.6 L (25.0-35.0) pg RDW 17.3 H (11.5-15.5) % Plt Count 127 L (150-450) k/uL Neutrophils # 1.2 L (1.3-7.7) k/uL Lymphocytes # 0.2 L (1.0-4.8) k/uL Sodium (137-145) mmol/L BUN (9-20) mg/dL Creatinine (0.66-1.25) mg/dL POC Glucose (mg/dL) 183 H 103 H (75-99) mg/dL Calcium (8.4-10.2) mg/dL 03/05/20 03/05/20 Range/Units 07:40 11:29 WBC (3.8-10.6) k/uL RBC (4.30-5.90) m/uL Hgb (13.0-17.5) gm/dL Hct (39.0-53.0) % MCV (80.0-100.0) fL MCH (25.0-35.0) pg RDW (11.5-15.5) % Plt Count (150-450) k/uL Neutrophils # (1.3-7.7) k/uL Lymphocytes # (1.0-4.8) k/uL Sodium 132 L (137-145) mmol/L BUN 46 H (9-20) mg/dL Creatinine 2.43 H (0.66-1.25) mg/dL POC Glucose (mg/dL) 127 H (75-99) mg/dL Calcium 8.0 L (8.4-10.2) mg/dL Microbiology - Last 24 Hours (Table) 03/02/20 17:33 Gram Stain - Final Elbow - Left Wound Culture - Final Staphylococcus aureus 03/02/20 17:33 Anaerobic Culture - Preliminary Elbow - Left 02/27/20 17:03 Blood Culture - Final Blood No Growth after 144 hours Assessment and Plan Plan: Assessment: 1. 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 Renal function fairly stable. 2. Metabolic acidosis secondary to acute kidney injury status post bicarb drip. Better. 3. Left forearm cellulitis maintained on antibiotics. 4. Anemia of chronic kidney disease maintained on Aranesp. Iron deficiency noted. 5. Chronic kidney disease stage III with baseline creatinine near 1.8. 6. History of polycystic kidney disease status post bilateral nephrectomies. 7. Status post living unrelated renal allograft in 2002 at [facility]. Plan: Encouraged oral intake. Maintain antirejection medications. Avoid nephrotoxins. Status post 2 doses of IV iron. Anticipate discharge soon. Follow up outpatient in 2 weeks.
[2020-03-05 14:10] VITALS: BP 101/65; PULSE 69; RESP 18
--- NOTE | 2020-03-05 14:30 | PN ---
PROGRESS NOTE DATE OF SERVICE: 03/05/2020 REASON FOR FOLLOWUP: Left elbow septic olecranon bursitis and MSSA. INTERVAL HISTORY: The patient is currently afebrile, patient is breathing comfortably. Denies having any chest pain or shortness of breath or cough. No nausea, no vomiting, no abdominal pain or pain to the left elbow area. PHYSICAL EXAMINATION: Blood pressure 152/81 with a pulse of 96, temperature 98.4. He is 92% on room air. General description is an elderly male, up in the chair in no distress. RESPIRATORY SYSTEM: Unlabored breathing, clear to auscultation anteriorly. HEART: S1, S2. Regular rate and rhythm. Left elbow is currently dressed up. No obvious drainage on the dressing. LABS: Hemoglobin is 8.1, white count 7, BUN of 26, creatinine 0.43. Wound culture with MSSA, blood culture negative. DIAGNOSTIC IMPRESSION AND PLAN: Patient with MSSA, left elbow septic bursitis status post bursectomy did have significant cellulitis. Recommending either IV cefazolin 2 g q.12 hours, dose adjusted with kidney function or Rocephin 2 g. q12 hours daily, depending upon his coverage for 2 weeks and close outpatient followup. MMODL / IJN: [id number] /
[2020-03-05 16:25] LABS: Glucose,Whole Blood 210 mg/dL (75-99)
--- NOTE | 2020-03-05 22:34 | P.DS ---
Providers Date of admission: 02/27/20 19:58 Expected date of discharge: 03/05/20 Attending physician: Landon Strickland Consults: 02/27/20 19:41 Consult Physician Routine Consulting Provider: Heaven Boyle Consult Reason/Comments: Cellulitis left arm Do you want consulting provider notified?: Yes 02/27/20 23:51 Consult Physician Routine Consulting Provider: Valarie Fortune Consult Reason/Comments: crf Do you want consulting provider notified?: Yes 02/28/20 13:44 Consult Physician Routine Consulting Provider: Jose Pimentel Consult Reason/Comments: cellulitis of l elbow bursitis Do you want consulting provider notified?: Yes 02/28/20 17:16 Consult Physician Routine Consulting Provider: Bryan Guillen Consult Reason/Comments: cellulitis of l elbow and possible bursitis Do you want consulting provider notified?: Yes Primary care physician: Aiyana regulo [facility] Course: Mr. Ng is a 74-year-old male with a past medical history of end-stage renal disease, status post living related renal transplant done at [facility], hypertension, coronary artery disease, diabetes mellitus, hyperlipidemia, polycystic kidney disease coming in with a chief complaint of left upper extremity pain and swelling that began 4 to 5 days prior to admission. Patient noticed that he was having some area of irritation in the left elbow, subsequently became red especially in the dorsal area. He was also having some drainage from that area, he was taking oral antibiotics but did not show improvement. At the time of admission patient was also found to have pancytope yovani. Patient was started on broad-spectrum IV antibiotics and cultures were obtained. Multiple consultants including nephrology, orthopedic surgery, infectious disease but following the patient during the hospital course. Patient had I& D and the wound cultures grew Staphylococcus aureus, that is MSSA. So the patient was recommended antibiotics in the form of cefazolin 2 g IV twice daily for [address] Boyle. So the patient is being discharged home in a stable condition, after clearing by all the consultants. Vital Signs - 24 hr 03/05/20 03/05/20 03/05/20 02:09 07:41 14:09 Temperature 98.6 F 98.4 F 98.4 F Pulse Rate [ 59 L 66 69 Right Pulse Oximetery] Respiratory 17 17 18 Rate Blood Pressure 118/72 152/81 101/65 [Right Radial Artery] O2 Sat by Pulse 95 92 L 95 Oximetry DISCHARGE DIAGNOSIS Left elbow olecranon bursitis Cellulitis of the left upper extremity Pancytopenia Hyponatremia Acute on chronic kidney injury CKD stage III Transaminitis Hypoalbuminemia with mild protein calorie malnutrition CAD status post CABG Type 2 diabetes mellitus Hypertension History of migraine headaches History of polycystic kidney disease status post kidney transplant Immunocompromised Follow up - He is advised to have follow-up with his primary care physician in 2 to 3 days, orthopedic surgery in 1 week's time. Patient is being discharged home in a stable condition. Patient Condition at Discharge: Fair Plan - Discharge Summary Discharge Rx Participant: No New Discharge Prescriptions: New ceFAZolin [Kefzol] 2 gm IVP Q12HR #28 vial Continue Ergocalciferol [Vitamin D2 (DRISDOL)] 50,000 unit PO Q30D atenoloL [Tenormin] 50 mg PO HS@2100 Aspirin EC [Ecotrin Low Dose] 81 mg PO DAILY@0900 Tacrolimus [Prograf] 2 mg PO BID@0900,2100 Insulin NPH Human Isophane [NovoLIN N] 30 unit SQ AC-BRKFST@0900 Insulin NPH Human Isophane [NovoLIN N] 10 unit SQ HS@2100 Nitroglycerin Sl Tabs [Nitrostat] 0.4 mg SL Q5M PRN PRN Reason: Chest Pain Ferrous Sulfate [Iron (65 MG Elemental)] 325 mg PO DAILY@0900 Multivitamins, Thera [Multivitamin (formulary)] 1 tab PO DAILY@0900 hydrALAZINE HCL [Apresoline] 25 mg PO BID@0900,2100 Atorvastatin [Lipitor] 40 mg PO DAILY@0900 Apixaban [Eliquis] 5 mg PO BID@0900,2100 Everolimus 2.25 mg PO BID@0900,2100 Discontinued Amoxic-Pot Clav 875-125Mg [Augmentin 875-125] 1 tab PO BID@0900,2100 Discharge Medication List Ergocalciferol [Vitamin D2 (DRISDOL)] 50,000 unit PO Q30D 01/12/15 [History] atenoloL [Tenormin] 50 mg PO HS@2100 01/12/15 [History] Aspirin EC [Ecotrin Low Dose] 81 mg PO DAILY@0900 07/31/16 [History] Insulin NPH Human Isophane [NovoLIN N] 10 unit SQ HS@209907/31/16 [History] Insulin NPH Human Isophane [NovoLIN N] 30 unit SQ AC-BRKFST@89907/31/16 [History] Tacrolimus [Prograf] 2 mg PO BID@899,209907/31/16 [History] Apixaban [Eliquis] 5 mg PO BID@899,209902/27/20 [History] Atorvastatin [Lipitor] 40 mg PO DAILY@89902/27/20 [History] Everolimus 2.25 mg PO BID@899,209902/27/20 [History] Ferrous Sulfate [Iron (65 MG Elemental)] 325 mg PO DAILY@89902/27/20 [History] Multivitamins, Thera [Multivitamin (formulary)] 1 tab PO DAILY@89902/27/20 [History] Nitroglycerin Sl Tabs [Nitrostat] 0.4 mg SL Q5M PRN 02/27/20 [History] hydrALAZINE HCL [Apresoline] 25 mg PO BID@899,209902/27/20 [History] ceFAZolin [Kefzol] 2 gm IVP Q12HR #28 vial 03/05/20 [Rx] Follow up Appointment(s)/Referral(s): Aiyana De Los Santos DO [Primary Care Provider] - 03/09/20 1:30 pm [facility], [REFERRING] - As Needed (Will deliver medication and supplies this evening.) Bryan Guillen DO [Doctor of Osteopathic Medicine] - 03/12/20 2:45 pm (Face mask required at this appointment and to please come into appointment alone) Heaven Boyle MD [STAFF PHYSICIAN] - 03/19/20 1:30 pm Activity/Diet/Wound Care/Special Instructions: [facility] #[phone] Keep the incision clean, dry and intact. Sutures will dissolve. Maintain clean bandage. Keep covered when showering. Do not soak incision. Please follow-up with [facility] and call if any questions or concerns, . Discharge Disposition: HOME WITH HOME HEALTH SERVICES
--- NOTE | 2020-03-07 01:24 | CDI ---
Documentation Clarification Form Date: 03/07/2020 From: Dario Peterson Phone: If you have a question about this query, please contact Felicity Nuñez, Mathematics Academic Chair at [phone] between 8am and 5pm. Admit Date: 02/27/2020 Discharge Date: 03/05/2020 Patient Name: Galindo Ng Visit Number: [id number] ATTENTION: The Clinical Documentation Specialists (CDI) and [facility] Coding Staff appreciate your assistance in clarifying documentation. Please respond to the clarification below the line at the bottom and electronically sign. The CDI & [facility] Coding staff will review the response and follow-up if needed. Please note: Queries are made part of the Legal Health Record. If you have any questions, please contact the author of this message via ITS. Dear Bernice Armijo., The patient presented with the Left elbow olecranon bursitis. History/Risk Factors: kidney transplant, ATN,CKD, Cellulits Clinical Indicators: pain and swelling of left elbow WBC : 1.5L Blood cultures: [id number] Vitals signs on admission:emperature 98.7 F 98.2 F 97.9 F Pulse Rate 65 67 Pulse Rate [ 71 Right Pulse Oximetery] Respiratory 18 17 18 Rate Blood Pressure 131/72 148/73 Blood Pressure 144/73 [Right Arm] O2 Sat by Pulse 99 100 100 Treatment: Incision and drainage left olecranon bursa and antibiotics, IV fluids Antibiotics: vancomycin, which is now switched to daptomycin. H&P "Acute severe cellulitis of the left elbow and left forearm and upper arm with possible early sepsis." 02/28 Dr. Marco A Navarrete note "Pancytopenia of undetermined etiology with neutropenic sepsis, present on admission". In your professional opinion, please clarify if these findings signify one of the following conditions, Condition Sepsis ruled out SIRS, without underlying infectious process Sepsis Severe Sepsis Septic Shock Other, please specify Unable to determine Sepsis MTDD
[2020-03-26] MEDS ORDERED: ERGOCALCIFEROL 50,000 UNIT CAP PO SCH (09:00)
== END 2020-03-05 17:29 | disposition home health service (06) | DRG 853 ==
LOC: EC 15:51 → 1SOBS 18:42 → OBSVTOIN 19:58 → 1SOBS 20:24 → 4SSUR 03-01 14:38
PROVIDERS: ADMIT Hospitalist; ATTEND Hospitalist
PROC: 0M940ZZ Drainage of Left Elbow Bursa and Ligament, Open Approach (ICD-10-PCS; principal; 2020-03-02 14:00)
DX: A41.9 Sepsis, unspecified organism (principal); N17.0 Acute kidney failure with tubular necrosis; I12.0 Hypertensive chronic kidney disease with stage 5 chronic kidney disease or end stage renal disease; L03.114 Cellulitis of left upper limb; E87.1 Hypo-osmolality and hyponatremia; E44.1 Mild protein-calorie malnutrition; D61.818 Other pancytopenia; E87.2 Acidosis; T86.19 Other complication of kidney transplant; M71.122 Other infective bursitis, left elbow; I25.10 Atherosclerotic heart disease of native coronary artery without angina pectoris; G43.909 Migraine, unspecified, not intractable, without status migrainosus; E78.5 Hyperlipidemia, unspecified; D63.1 Anemia in chronic kidney disease; E11.22 Type 2 diabetes mellitus with diabetic chronic kidney disease; K59.00 Constipation, unspecified; M19.022 Primary osteoarthritis, left elbow; N18.3 Chronic kidney disease, stage 3 (moderate); Y83.0 Surgical operation with transplant of whole organ as the cause of abnormal reaction of the patient, or of later complication, without mention of misadventure at the time of the procedure; D70.3 Neutropenia due to infection; Z11.59 Encounter for screening for other viral diseases; Z79.4 Long term (current) use of insulin; Z79.82 Long term (current) use of aspirin; Z79.899 Other long term (current) drug therapy; Z79.01 Long term (current) use of anticoagulants; I25.2 Old myocardial infarction; Z95.5 Presence of coronary angioplasty implant and graft; Z95.1 Presence of aortocoronary bypass graft; Z90.5 Acquired absence of kidney; Z98.890 Other specified postprocedural states; Z80.1 Family history of malignant neoplasm of trachea, bronchus and lung; Z82.71 Family history of polycystic kidney
CPT/HCPCS: 36410; 36415; 76770; 76937; 80048; 80053; 80074; 80197; 80202; 81001; 83036; 83540; 83550; 83605; 83735; 84550; 85025; 85610; 85652; 85730; 86140; 87040; 87070; 87075; 87077; 87186; 87205; 96365; 96366; 99284

== ENCOUNTER 2020-03-07 17:08 | Emergency (ER) | payer MEDICARE ==
[2020-03-07] MEDS ORDERED: SODIUM CHLORIDE 0.9% 1,000 ML IV STA (17:21)
--- NOTE | 2020-03-07 17:26 | ED ---
Recheck HPI - General Chief Complaint: Recheck/Abnormal Lab/Rx Stated Complaint: lab recheck/SOB Time Seen by Provider: 03/07/20 17:21 Source: patient, RN notes reviewed, old records reviewed Mode of arrival: ambulatory Limitations: no limitations - History of Present Illness Initial Comments: This is a 74-year-old male to the ER for evaluation patient presents today for evaluation regards to not feeling well patient has been to a lot lately with surgery infection on at home IV antibiotics. Patient is having difficulty breathing when he lays down flat was sent to ER for evaluation regards outpatient hemoglobin being 6.0 down from 8.0. Patient has no bleeding and the stool no nausea or vomiting of blood and no bleeding noted from wound. MD Complaint: abnormal lab (Low hemoglobin) -: unknown Returns Today for: Called Because of Abnormal Lab/Test Symptoms Since Prior Visit: no new symptoms (Patient does have mildly worsen shortness of breath especially with laying down) Associated Symptoms: shortness of breath, malaise Treatments Prior to Arrival: Given Antibiotics on - Related Data Home Medications Medication Instructions Recorded Confirmed RX: Ergocalciferol [Vitamin D2 50,000 unit PO Q30D 01/12/15 02/27/20 (DRISDOL)] RX: atenoloL [Tenormin] 50 mg PO HS@209901/12/15 02/27/20 RX: Aspirin EC [Ecotrin Low Dose] 81 mg PO DAILY@89907/31/16 02/27/20 RX: Insulin NPH Human Isophane 10 unit SQ HS@209907/31/16 02/27/20 [NovoLIN N] RX: Insulin NPH Human Isophane 30 unit SQ AC-BRKFST@89907/31/16 02/27/20 [NovoLIN N] RX: Tacrolimus [Prograf] 2 mg PO BID@899,209907/31/16 02/27/20 RX: Apixaban [Eliquis] 5 mg PO BID@899,209902/27/20 02/27/20 RX: Atorvastatin [Lipitor] 40 mg PO DAILY@89902/27/20 02/27/20 RX: Everolimus 2.25 mg PO BID@0900,209902/27/20 02/27/20 RX: Ferrous Sulfate [Iron (65 MG 325 mg PO DAILY@89902/27/20 02/27/20 Elemental)] RX: Multivitamins, Thera 1 tab PO DAILY@0900 02/27/20 02/27/20 [Multivitamin (formulary)] RX: Nitroglycerin Sl Tabs 0.4 mg SL Q5M PRN 02/27/20 02/27/20 [Nitrostat] RX: hydrALAZINE HCL [Apresoline] 25 mg PO BID@0900,2100 02/27/20 02/27/20 Previous Rx's Medication Instructions Recorded RX: ceFAZolin [Kefzol] 2 gm IVP Q12HR #28 vial 03/05/20 Allergies Allergy/AdvReac Type Severity Reaction Status Date / Time No Known Allergies Allergy Verified 03/07/20 17:14 Review of Systems ROS Statement: Those systems with pertinent positive or pertinent negative responses have been documented in the HPI. ROS Other: All systems not noted in ROS Statement are negative. Past Medical History Past Medical History: Coronary Artery Disease (CAD), Chest Pain / Angina, Diabetes Mellitus, Hyperlipidemia, Hypertension, Myocardial Infarction (CT), Renal Disease Additional Past Medical History / Comment(s): migraines, umbilical and inguinal hernia, polycystic kidney disease Last Myocardial Infarction Date:: unk History of Any Multi-Drug Resistant Organisms: None Reported Past Surgical History: Coronary Bypass/CABG, Heart Catheterization With Stent Additional Past Surgical History / Comment(s): nile nephrectomy/ kidney transplant on rt in 2002, heart cath with 2 stents, colonocsopy.polyps removed- benign Past Anesthesia/Blood Transfusion Reactions: No Reported Reaction Date of Last Stent Placement:: 2013 Past Psychological History: No Psychological Hx Reported Smoking Status: Never smoker Past Alcohol Use History: Occasional Past Drug Use History: None Reported - Past Family History Father Family Medical History: Cancer Additional Family Medical History / Comment(s): LUNG CANCER Mother Additional Family Medical History / Comment(s): POLYCYSTIC KIDNEY DISEASE General Exam Limitations: no limitations General appearance: alert, in no apparent distress Head exam: Present: atraumatic, normocephalic, normal inspection Eye exam: Present: normal appearance, PERRL, EOMI. Absent: scleral icterus, conjunctival injection, periorbital swelling ENT exam: Present: normal exam, mucous membranes moist Neck exam: Present: normal inspection. Absent: tenderness, meningismus, lymphadenopathy Respiratory exam: Present: normal lung sounds bilaterally. Absent: respiratory distress, wheezes, rales, rhonchi, stridor Cardiovascular Exam: Present: regular rate, normal rhythm, normal heart sounds. Absent: systolic murmur, diastolic murmur, rubs, gallop, clicks GI/Abdominal exam: Present: soft, normal bowel sounds. Absent: distended, tenderness, guarding, rebound, rigid Extremities exam: Present: normal inspection, full ROM, normal capillary refill. Absent: tenderness, pedal edema, joint swelling, calf tenderness Back exam: Present: normal inspection Neurological exam: Present: alert, oriented X3, CN II-XII intact Psychiatric exam: Present: normal affect, normal mood Skin exam: Present: warm, dry, intact, normal color. Absent: rash Course Vital Signs 03/07/20 17:15 Temperature 98.0 F Pulse Rate 60 Respiratory 16 Rate Blood Pressure 177/98 O2 Sat by Pulse 98 Oximetry - Reevaluation(s) Reevaluation #1: 03/07/20 18:59 Medical record is reviewed Reevaluation #2: 03/07/20 19:07 Patient family informed of results, questions answered Medical Decision Making - Medical Decision Making 24 male DF for evaluation patient found to be significantly anemic although it is acute on chronic anemia improved from prior. Hemoglobin is 8.8 here in the ER patient can be discharged home - Lab Data Result diagrams: 03/07/20 17:47 03/07/20 17:47 Lab Results 03/07/20 03/07/20 03/07/20 Range/Units 17:47 17:47 17:47 WBC 1.8 L (3.8-10.6) k/uL RBC 3.57 L (4.30-5.90) m/uL Hgb 8.8 L (13.0-17.5) gm/dL Hct 27.9 L (39.0-53.0) % MCV 78.0 L (80.0-100.0) fL MCH 24.7 L (25.0-35.0) pg MCHC 31.7 (31.0-37.0) g/dL RDW 17.6 H (11.5-15.5) % Plt Count 141 L (150-450) k/uL Neutrophils % 67 % Lymphocytes % 13 % Monocytes % 10 % Eosinophils % 5 % Basophils % 1 % Neutrophils # 1.2 L (1.3-7.7) k/uL Lymphocytes # 0.2 L (1.0-4.8) k/uL Monocytes # 0.2 (0-1.0) k/uL Eosinophils # 0.1 (0-0.7) k/uL Basophils # 0.0 (0-0.2) k/uL Manual Slide Review Performed Large Platelets Present Hypochromasia Moderate Poikilocytosis Slight Poikilocytosis (manual Present Anisocytosis Slight Microcytosis Slight Rouleaux Present PT 13.7 H (9.0-12.0) sec INR 1.4 H (<1.2) APTT 35.0 H (22.0-30.0) sec Sodium 134 L (137-145) mmol/L Potassium 4.8 (3.5-5.1) mmol/L Chloride 106 (98-107) mmol/L Carbon Dioxide 21 L (22-30) mmol/L Anion Gap 7 mmol/L BUN 48 H (9-20) mg/dL Creatinine 2.58 H (0.66-1.25) mg/dL Est GFR (CKD-EPI)AfAm 27 (>60 ml/min/1.73 sqM) Est GFR (CKD-EPI)NonAf 24 (>60 ml/min/1.73 sqM) Glucose 153 H (74-99) mg/dL Calcium 8.4 (8.4-10.2) mg/dL Magnesium 1.9 (1.6-2.3) mg/dL Total Bilirubin 0.5 (0.2-1.3) mg/dL AST 49 (17-59) U/L ALT 29 (4-49) U/L Alkaline Phosphatase 247 H (38-126) U/L Troponin I (0.000-0.034) ng/mL Total Protein 5.8 L (6.3-8.2) g/dL Albumin 3.0 L (3.5-5.0) g/dL 03/07/20 Range/Units 17:47 WBC (3.8-10.6) k/uL RBC (4.30-5.90) m/uL Hgb (13.0-17.5) gm/dL Hct (39.0-53.0) % MCV (80.0-100.0) fL MCH (25.0-35.0) pg MCHC (31.0-37.0) g/dL RDW (11.5-15.5) % Plt Count (150-450) k/uL Neutrophils % % Lymphocytes % % Monocytes % % Eosinophils % % Basophils % % Neutrophils # (1.3-7.7) k/uL Lymphocytes # (1.0-4.8) k/uL Monocytes # (0-1.0) k/uL Eosinophils # (0-0.7) k/uL Basophils # (0-0.2) k/uL Manual Slide Review Large Platelets Hypochromasia Poikilocytosis Poikilocytosis (manual Anisocytosis Microcytosis Rouleaux PT (9.0-12.0) sec INR (<1.2) APTT (22.0-30.0) sec Sodium (137-145) mmol/L Potassium (3.5-5.1) mmol/L Chloride (98-107) mmol/L Carbon Dioxide (22-30) mmol/L Anion Gap mmol/L BUN (9-20) mg/dL Creatinine (0.66-1.25) mg/dL Est GFR (CKD-EPI)AfAm (>60 ml/min/1.73 sqM) Est GFR (CKD-EPI)NonAf (>60 ml/min/1.73 sqM) Glucose (74-99) mg/dL Calcium (8.4-10.2) mg/dL Magnesium (1.6-2.3) mg/dL Total Bilirubin (0.2-1.3) mg/dL AST (17-59) U/L ALT (4-49) U/L Alkaline Phosphatase (38-126) U/L Troponin I 0.026 (0.000-0.034) ng/mL Total Protein (6.3-8.2) g/dL Albumin (3.5-5.0) g/dL - Radiology Data Radiology results: report reviewed (Chest x-rays negative for acute disease), image reviewed Disposition Clinical Impression: Anemia Disposition: HOME SELF-CARE Condition: Good Instructions (If sedation given, give patient instructions): Anemia (ED) Is patient prescribed a controlled substance at d/c from ED?: No Referrals: Aiyana De Los Santos DO [Primary Care Provider] - 1-2 days
[2020-03-07 18:14] LABS: Calcium 8.4 mg/dL (8.4-10.2); Magnesium 1.9 mg/dL (1.6-2.3); Potassium 4.8 mmol/L (3.5-5.1); Total Bilirubin 0.5 mg/dL (0.2-1.3); Total Protein 5.8 g/dL (6.3-8.2)
[2020-03-07 18:27] LABS: INR 1.4 (<1.2); Prothrombin Time 13.7 sec (9.0-12.0)
[2020-03-07 18:28] LABS: Anisocytosis Slight; Basophils % (A) 1 %; Eosinophils # (A) 0.1 k/uL (0-0.7); Eosinophils % (A) 5 %; HCT 27.9 % (39.0-53.0); HGB 8.8 gm/dL (13.0-17.5); Hypochromasia Moderate; Lymphocytes # (A) 0.2 k/uL (1.0-4.8); Lymphocytes % (A) 13 %; MCH 24.7 pg (25.0-35.0); MCHC 31.7 g/dL (31.0-37.0); Microcytosis Slight; Monocytes # (A) 0.2 k/uL (0-1.0); Monocytes % (A) 10 %; Neutrophils # (A) 1.2 k/uL (1.3-7.7); Neutrophils % (A) 67 %; Platelet Count 141 k/uL (150-450); Poikilocytosis Slight; RBC 3.57 m/uL (4.30-5.90); RDW 17.6 % (11.5-15.5); WBC 1.8 k/uL (3.8-10.6)
[2020-03-07 18:39] LABS: Large Platelets Present; Poikilocytosis (M) Present; Rouleaux Present
--- NOTE | 2020-03-07 19:19 | XR ---
EXAMINATION TYPE: XR chest 1V portable DATE OF EXAM: 03/07/2020 COMPARISON: Prior chest x-ray July 31, 2016. HISTORY: Shortness of breath. CHF. TECHNIQUE: Single AP portable frontal upright view of the chest is obtained. FINDINGS: Overlying sternal wires and mediastinal clips redemonstrated. Persistent cardiomegaly and atherosclerotic thoracic aorta. New mild to moderate central vascular congestion. No new pleural effu keara or pneumothorax. Osseous structures remain demineralized. IMPRESSION: Findings correlate with CHF exacerbation as there is redemonstration of cardiomegaly wit h new mild to moderate central vascular congestion bilaterally.
[2020-03-07] MEDS ORDERED: FUROSEMIDE 10 MG/ML 10 ML VIAL IV STA (19:27)
[2020-03-07 19:34] VITALS: PULSE 64; RESP 17
[2020-03-07 20:51] VITALS: BP 164/101; TEMP 98.1
== END 2020-03-07 21:04 | disposition home or self-care (01) ==
LOC: EC 17:08
DX: D64.9 Anemia, unspecified (principal); E11.9 Type 2 diabetes mellitus without complications; E78.5 Hyperlipidemia, unspecified; I25.2 Old myocardial infarction; I11.9 Hypertensive heart disease without heart failure; I25.119 Atherosclerotic heart disease of native coronary artery with unspecified angina pectoris; Z79.82 Long term (current) use of aspirin; Z79.4 Long term (current) use of insulin; Z79.01 Long term (current) use of anticoagulants; Z79.899 Other long term (current) drug therapy; Z95.1 Presence of aortocoronary bypass graft; Z95.5 Presence of coronary angioplasty implant and graft; Z90.5 Acquired absence of kidney; Z94.0 Kidney transplant status
CPT/HCPCS: 36415; 86900; 86901; 83880; 80053; 83735; 84484; 85025; 85610; 85730; 86850; 71045; 99285; 96374; 96361 ×2; J1940

== ENCOUNTER → 2020-04-03 | Outpatient (CLI) | payer MEDICARE ==
[2020-04-03 09:27] VITALS: BP 179/100; PULSE 71; RESP 16; TEMP 97.2
[2020-04-03 10:02] LABS: Anisocytosis Slight; Basophils % (A) 1 %; Eosinophils # (A) 0.1 k/uL (0-0.7); Eosinophils % (A) 7 %; HCT 31.6 % (39.0-53.0); HGB 9.8 gm/dL (13.0-17.5); Hypochromasia Marked; Lymphocytes # (A) 0.2 k/uL (1.0-4.8); Lymphocytes % (A) 10 %; MCH 25.4 pg (25.0-35.0); MCHC 30.9 g/dL (31.0-37.0); MCV 82.2 fL (80.0-100.0); Mean Platelet Volume 9.8; Microcytosis Slight; Monocytes # (A) 0.2 k/uL (0-1.0); Monocytes % (A) 8 %; Neutrophils # (A) 1.6 k/uL (1.3-7.7); Neutrophils % (A) 73 %; Platelet Count 111 k/uL (150-450); RBC 3.85 m/uL (4.30-5.90); RDW 18.5 % (11.5-15.5); WBC 2.2 k/uL (3.8-10.6)
[2020-04-03 10:03] LABS: Albumin 3.7 g/dL (3.5-5.0); C Reactive Protein 33.1 mg/L (<10.0); Calcium 8.8 mg/dL (8.4-10.2); Potassium 4.5 mmol/L (3.5-5.1); Total Bilirubin 0.4 mg/dL (0.2-1.3); Total Protein 6.6 g/dL (6.3-8.2)
[2020-04-03 11:06] LABS: Poikilocytosis (M) Present
[2020-04-03 13:33] LABS: Erythrocyte Sedimentation Rate 58 mm/hr (0-15)
== END | disposition home or self-care (01) ==
LOC: PROCWHC3 08:59
PROVIDERS: ATTEND Internal Medicine Infectious Disease
DX: M71.10 Other infective bursitis, unspecified site (principal)
CPT/HCPCS: 80053; 85025; 85652; 86140

== ENCOUNTER → 2020-04-06 | Outpatient (CLI) | payer MEDICARE ==
--- NOTE | 2020-04-06 09:48 | XR ---
EXAMINATION TYPE: XR chest 2V DATE OF EXAM: 04/06/2020 COMPARISON: 03/07/2020 TECHNIQUE: PA and lateral views submitted. HISTORY: Shortness of breath FINDINGS: The lungs are clear and there is no pneumothorax, pleural effusion, or focal pneumonia. Surgical vicky nge. Heart size is stable. Subsegmental linear changes most typical of atelectasis. Mild Central coar sened interstitium. Arthropathy of the shoulders. IMPRESSION: 1. Correlate for mild central venous congestion..
== END | disposition home or self-care (01) ==
LOC: RADXRMAIN 09:11
PROVIDERS: ATTEND Internal Medicine Nephrology
DX: Z94.0 Kidney transplant status (principal)
CPT/HCPCS: 71046

== ENCOUNTER → 2020-05-11 | Outpatient (CLI) | payer MEDICARE ==
--- NOTE | 2020-05-11 15:54 | CT ---
EXAMINATION TYPE: CT chest wo con DATE OF EXAM: 05/11/2020 COMPARISON: Chest radiograph 04/30/2020 HISTORY: Abn lung field, SOB CT DLP: 253.9 mGycm Automated exposure control for dose reduction was used. CONTRAST: CT scan of the chest is performed without intravenous contrast. FINDINGS: LUNGS: There is diffuse bilateral moderate interstitial lung disease with fibrotic coarsening, ground glass opacities, and reticular nodular opacities. Findings are basilar predominant. Very minimal bron chiectasis. No concerning parenchymal mass or nodule identified. Small left pleural effusion. Trace r ight pleural effusion. No pneumothorax. The tracheobronchial tree is patent. MEDIASTINUM/SOFT TISSUES: No axillary, hilar, or mediastinal lymphadenopathy greater than 1 cm. Tiny calcified mediastinal and hilar lymph nodes are seen, likely sequela of prior granulomatous disease. Cardiomegaly. Calcified coronary artery disease. No pericardial effusion. No thoracic aortic aneurysm . UPPER ABDOMEN: No adrenal nodule. 2.6 cm ovoid fluid dense lesion of the hepatic dome. OSSEOUS: Redemonstrated diffusely fractured sternotomy wires. Degenerative changes of the spine. IMPRESSION: 1. Moderate diffuse interstitial lung disease changes. No pulmonary mass. 2. Small left and trace right pleural effusions. 3. Cardiomegaly. 4. Fluid density lesion of the liver may represent hepatic cyst.
== END | disposition home or self-care (01) ==
LOC: RADCTMAIN 13:29
PROVIDERS: ATTEND Internal Medicine
DX: J90 Pleural effusion, not elsewhere classified (principal); I51.7 Cardiomegaly; J84.9 Interstitial pulmonary disease, unspecified
CPT/HCPCS: 71250

== ENCOUNTER → 2020-07-16 | Outpatient (CLI) | payer MEDICARE ==
[2020-07-16 11:42] LABS: Anion Gap 10.7 mmol/L (4.00-12.00); BUN/Creat Ratio 23.18 Ratio (12.00-20.00); Calcium 9.2 mg/dL (8.7-10.3); Carbon Dioxide 19.3 mmol/L (21.6-31.8); Non-African American GFR(CKD) 28.5 (60.0-200.0); Potassium 4.5 mmol/L (3.5-5.5)
== END | disposition home or self-care (01) ==
LOC: LABWHC1 07:09
PROVIDERS: ATTEND Nurse Practitioner Family
DX: N18.30 Chronic kidney disease, stage 3 unspecified (principal); Z94.0 Kidney transplant status
CPT/HCPCS: 36415; 80048; 80169; 80197

== ENCOUNTER → 2020-08-20 | Outpatient (CLI) | payer MEDICARE ==
[2020-08-20 08:12] LABS: Anisocytosis Slight; HCT 33.3 % (39.0-53.0); HGB 10.3 gm/dL (13.0-17.5); Hypochromasia Marked; MCH 23.3 pg (25.0-35.0); MCHC 30.8 g/dL (31.0-37.0); MCV 75.7 fL (80.0-100.0); Mean Platelet Volume 9.1; Microcytosis Moderate; Platelet Count 107 k/uL (150-450); RDW 19.2 % (11.5-15.5); Reticulocyte % 2.7 % (0.5-2.0)
[2020-08-20 08:41] LABS: WBC 1.3 k/uL (3.8-10.6)
[2020-08-20 09:05] LABS: Basophils # (M) 0.01 k/uL (0-0.2); Eosinophils # (M) 0.05 k/uL (0-0.7); Metamyelocytes # (M) 0.01 k/uL (0); Metamyelocytes % 1 %; Nucleated Red Blood Cells 0 /100 WBC (0-0)
[2020-08-20 09:10] LABS: Band Neutrophils % 7 %; Lymphocytes # (M) 0.16 k/uL (1.0-4.8); Monocytes # (M) 0.31 k/uL (0-1.0); Neutrophils % (M) 54 %; Total Cells Counted 200
[2020-08-20 09:11] LABS: Poikilocytosis (M) Present
[2020-08-20 11:00] LABS: African American GFR (CKD) 29.7 (60.0-200.0); Albumin 4.1 g/dL (3.80-4.90); Albumin/Globulin Ratio 1.71 (1.60-3.17); Anion Gap 9.1 mmol/L (4.00-12.00); BUN/Creat Ratio 21.25 Ratio (12.00-20.00); Carbon Dioxide 20.9 mmol/L (21.6-31.8); Chol/HDL Ratio 5.27; Globulin 2.4 g/dL (1.6-3.3); LDL Cholesterol,Calculated 34.4 mg/dL (0.0-131.0); Non-African American GFR(CKD) 25.6 (60.0-200.0); Potassium 4.6 mmol/L (3.5-5.5); Total Bilirubin 0.5 mg/dL (0.3-1.2); Total Protein 6.5 g/dL (6.2-8.2); VLDL Calculation 76.6 mg/dL (5.00-40.00)
[2020-08-20 15:54] LABS: Hemoglobin A1C 6.1 % (4.0-6.0)
== END | disposition home or self-care (01) ==
LOC: LABWHC1 07:05
PROVIDERS: ATTEND Family Medicine
DX: E11.9 Type 2 diabetes mellitus without complications (principal)
CPT/HCPCS: 36415; 80053; 80061; 83036; 85025; 85045

== ENCOUNTER → 2020-10-04 | Outpatient (CLI) | payer MEDICARE ==
--- NOTE | 2020-10-04 13:23 | XR ---
EXAMINATION TYPE: XR chest 2V DATE OF EXAM: 10/04/2020 COMPARISON: Chest x-ray 04/06/2020 HISTORY: R05, cough, shortness of breath TECHNIQUE: Frontal and lateral views of the chest are obtained. FINDINGS: There is no focal air space opacity, pleural effusion, or pneumothorax seen. The cardiac silhouette size is stable, patient is post median sternotomy. Interstitium is mildly. The osseous st ructures are intact and there is thoracic spondylosis there are coronary calcifications. IMPRESSION: There may be a component of interstitial edema. Follow-up suggested.
== END ==
LOC: RADXRMAIN 10:20
PROVIDERS: ATTEND Internal Medicine Nephrology
DX: R06.02 Shortness of breath (principal)
CPT/HCPCS: 71046

== ENCOUNTER 2020-10-09 06:36 | Inpatient (IN) | payer MEDICARE ==
--- NOTE | 2020-10-09 07:13 | ED ---
General Adult HPI - General Chief complaint: Shortness of Breath Stated complaint: JENNYFER Time Seen by Provider: 10/09/20 06:46 Source: patient, RN notes reviewed Mode of arrival: wheelchair Limitations: no limitations - History of Present Illness Initial comments: This a 74-year-old male presents emergency Department chief complaint of shortness of breath. Patient states that he's been having ongoing shortness breath for over year but has worsened last 3 days. Patient states his been up all night. Patient states he feels like he cannot naproxen. Patient denies any fevers chills he states his cough is minimally productive with white sputum. Patient complains of abdominal pain but states it started 2 weeks ago after a coughing fit. Patient denies any chest pain or pressure. Patient's had a history of quadruple bypass, history of 2 kidney transplants from polycystic kidney disease. Patient denies any leg swelling usual states usually has some swelling on the left from vein grafting. Patient does has a history of A. fib currently on anticoagulants. - Related Data Home Medications Medication Instructions Recorded Confirmed Ergocalciferol [Vitamin D2 50,000 unit PO Q30D 01/12/15 10/09/20 (DRISDOL)] atenoloL [Tenormin] 50 mg PO HS@209901/12/15 10/09/20 Aspirin EC [Ecotrin Low Dose] 81 mg PO DAILY@89907/31/16 10/09/20 Insulin NPH Human Isophane 10 unit SQ AC-SUPPER 07/31/16 10/09/20 [NovoLIN N] Insulin NPH Human Isophane 30 unit SQ AC-BRKFST 07/31/16 10/09/20 [NovoLIN N] Tacrolimus [Prograf] 2 mg PO DAILY@89907/31/16 10/09/20 Apixaban [Eliquis] 5 mg PO BID@0900,209902/27/20 10/09/20 Everolimus 2.25 mg PO BID@0900,209902/27/20 10/09/20 Ferrous Sulfate [Iron (65 MG 65 mg PO DAILY@89902/27/20 10/09/20 Elemental)] Multivitamins, Thera [Multivitamin 1 tab PO DAILY@89902/27/20 10/09/20 (formulary)] Nitroglycerin Sl Tabs [Nitrostat] 0.4 mg SL Q5M PRN 02/27/20 10/09/20 Atorvastatin [Lipitor] 40 mg PO DAILY@0900 07/16/20 10/09/20 Furosemide [Lasix] 40 mg PO DAILY@0900 10/01/20 10/09/20 Amoxicillin 500 mg PO BID@0900,2100 10/09/20 10/09/20 Benzonatate [Tessalon Perles] 100 - 200 mg PO TID PRN 10/09/20 10/09/20 Sodium Bicarbonate Tab 1,300 mg PO DAILY@0900 10/09/20 10/09/20 Tacrolimus [Prograf] 1 mg PO HS@209910/09/20 10/09/20 Trelegy Ellipta(Unknown Dose) 1 puff INHALATION RT-DAILY 10/09/20 10/09/20 hydrALAZINE HCL [Apresoline] 25 mg PO HS@209910/09/20 10/09/20 hydrALAZINE HCL [Apresoline] 50 mg PO DAILY@0910/09/20 10/09/20 Allergies Allergy/AdvReac Type Severity Reaction Status Date / Time No Known Allergies Allergy Verified 10/09/20 06:42 Review of Systems ROS Statement: Those systems with pertinent positive or pertinent negative responses have been documented in the HPI. ROS Other: All systems not noted in ROS Statement are negative. Past Medical History Past Medical History: Coronary Artery Disease (CAD), Chest Pain / Angina, Diabetes Mellitus, Hyperlipidemia, Hypertension, Myocardial Infarction (CT), Renal Disease Additional Past Medical History / Comment(s): migraines, umbilical and inguinal hernia, polycystic kidney disease Last Myocardial Infarction Date:: unk History of Any Multi-Drug Resistant Organisms: None Reported Past Surgical History: Coronary Bypass/CABG, Heart Catheterization With Stent Additional Past Surgical History / Comment(s): nile nephrectomy/ kidney transplant on rt in 2002, heart cath with 2 stents, colonocsopy.polyps removed- benign Past Anesthesia/Blood Transfusion Reactions: No Reported Reaction Date of Last Stent Placement:: 2013 Past Psychological History: No Psychological Hx Reported Smoking Status: Never smoker Past Alcohol Use History: None Reported Past Drug Use History: None Reported - Past Family History Father Family Medical History: Cancer Additional Family Medical History / Comment(s): LUNG CANCER Mother Additional Family Medical History / Comment(s): POLYCYSTIC KIDNEY DISEASE General Exam Limitations: no limitations General appearance: alert, in no apparent distress, anxious Head exam: Present: atraumatic, normocephalic, normal inspection Eye exam: Present: normal appearance, PERRL, EOMI. Absent: scleral icterus, conjunctival injection, periorbital swelling ENT exam: Present: normal exam, normal oropharynx, mucous membranes moist Neck exam: Present: normal inspection, full ROM. Absent: tenderness, meningismus, lymphadenopathy Respiratory exam: Present: normal lung sounds bilaterally. Absent: respiratory distress, wheezes, rales, rhonchi, stridor Cardiovascular Exam: Present: regular rate, normal rhythm, normal heart sounds. Absent: systolic murmur, diastolic murmur, rubs, gallop, clicks GI/Abdominal exam: Present: soft, tenderness (Mild diffuse), normal bowel sounds. Absent: distended, guarding, rebound, rigid Back exam: Absent: CVA tenderness (R), CVA tenderness (L) Neurological exam: Present: alert, oriented X3 Skin exam: Present: warm, dry, intact, normal color. Absent: rash Course Vital Signs 10/09/20 10/09/20 06:37 06:55 Temperature 97.6 F Pulse Rate 82 Respiratory 24 25 H Rate Blood Pressure 159/82 O2 Sat by Pulse 93 L Oximetry Medical Decision Making - Medical Decision Making 74-year-old male presented for increasing shortness of breath. Patient x-ray shows mild pulmonary edema which is increased from his prior x-ray. BMP is 20,0 00 and has evidence of acute on chronic kidney injury. Patient will be admitted for cardiology, nephrology evaluation. - Lab Data Result diagrams: 10/09/20 07:06 10/09/20 07:06 Lab Results 10/09/20 10/09/20 10/09/20 Range/Units 07:06 07:06 07:06 WBC 3.1 L (3.8-10.6) k/uL RBC 3.92 L (4.30-5.90) m/uL Hgb 9.3 L (13.0-17.5) gm/dL Hct 28.5 L (39.0-53.0) % MCV 72.6 L (80.0-100.0) fL MCH 23.7 L (25.0-35.0) pg MCHC 32.7 (31.0-37.0) g/dL RDW 21.2 H (11.5-15.5) % Plt Count 157 (150-450) k/uL MPV 9.2 Hypochromasia Slight Poikilocytosis Slight Anisocytosis Moderate Microcytosis Marked PT 13.2 H (9.0-12.0) sec INR 1.3 H (<1.2) APTT 26.7 (22.0-30.0) sec Sodium 135 L (137-145) mmol/L Potassium 5.3 H (3.5-5.1) mmol/L Chloride 108 H (98-107) mmol/L Carbon Dioxide 16 L (22-30) mmol/L Anion Gap 11 mmol/L BUN 83 H (9-20) mg/dL Creatinine 3.57 H (0.66-1.25) mg/dL Est GFR (CKD-EPI)AfAm 18 (>60 ml/min/1.73 sqM) Est GFR (CKD-EPI)NonAf 16 (>60 ml/min/1.73 sqM) Glucose 109 H (74-99) mg/dL Plasma Lactic Acid Roque (0.7-2.0) mmol/L Calcium 9.4 (8.4-10.2) mg/dL Magnesium 2.0 (1.6-2.3) mg/dL Total Bilirubin 1.0 (0.2-1.3) mg/dL AST 32 (17-59) U/L ALT 31 (4-49) U/L Alkaline Phosphatase 201 H (38-126) U/L Troponin I (0.000-0.034) ng/mL NT-Pro-B Natriuret Pep pg/mL Total Protein 7.1 (6.3-8.2) g/dL Albumin 3.9 (3.5-5.0) g/dL 10/09/20 10/09/20 10/09/20 Range/Units 07:06 07:06 07:06 WBC (3.8-10.6) k/uL RBC (4.30-5.90) m/uL Hgb (13.0-17.5) gm/dL Hct (39.0-53.0) % MCV (80.0-100.0) fL MCH (25.0-35.0) pg MCHC (31.0-37.0) g/dL RDW (11.5-15.5) % Plt Count (150-450) k/uL MPV Hypochromasia Poikilocytosis Anisocytosis Microcytosis PT (9.0-12.0) sec INR (<1.2) APTT (22.0-30.0) sec Sodium (137-145) mmol/L Potassium (3.5-5.1) mmol/L Chloride (98-107) mmol/L Carbon Dioxide (22-30) mmol/L Anion Gap mmol/L BUN (9-20) mg/dL Creatinine (0.66-1.25) mg/dL Est GFR (CKD-EPI)AfAm (>60 ml/min/1.73 sqM) Est GFR (CKD-EPI)NonAf (>60 ml/min/1.73 sqM) Glucose (74-99) mg/dL Plasma Lactic Acid Roque 1.5 (0.7-2.0) mmol/L Calcium (8.4-10.2) mg/dL Magnesium (1.6-2.3) mg/dL Total Bilirubin (0.2-1.3) mg/dL AST (17-59) U/L ALT (4-49) U/L Alkaline Phosphatase (38-126) U/L Troponin I 0.027 (0.000-0.034) ng/mL NT-Pro-B Natriuret Pep 92566 pg/mL Total Protein (6.3-8.2) g/dL Albumin (3.5-5.0) g/dL Disposition Clinical Impression: Acute kidney injury, Dyspnea, Renal failure, CHF (congestive heart failure), Pulmonary edema Disposition: ADMITTED IP TO THIS HOSP Condition: Fair Referrals: Aiyana De Los Santos DO [Primary Care Provider] - 1-2 days
[2020-10-09 07:22] LABS: Anisocytosis Moderate; HCT 28.5 % (39.0-53.0); HGB 9.3 gm/dL (13.0-17.5); Hypochromasia Slight; MCH 23.7 pg (25.0-35.0); MCHC 32.7 g/dL (31.0-37.0); MCV 72.6 fL (80.0-100.0); Mean Platelet Volume 9.2; Microcytosis Marked; Platelet Count 157 k/uL (150-450); Poikilocytosis Slight; RBC 3.92 m/uL (4.30-5.90); RDW 21.2 % (11.5-15.5); WBC 3.1 k/uL (3.8-10.6)
[2020-10-09 07:35] LABS: Albumin 3.9 g/dL (3.5-5.0); Calcium 9.4 mg/dL (8.4-10.2); Potassium 5.3 mmol/L (3.5-5.1); Total Protein 7.1 g/dL (6.3-8.2)
[2020-10-09 07:52] LABS: INR 1.3 (<1.2); Partial Thromboplastin Time 26.7 sec (22.0-30.0); Prothrombin Time 13.2 sec (9.0-12.0)
--- NOTE | 2020-10-09 08:05 | XR ---
EXAMINATION TYPE: XR chest 2V DATE OF EXAM: 10/09/2020 COMPARISON: 10/04/2020 TECHNIQUE: PA and lateral views submitted. HISTORY: Difficulty breathing FINDINGS: Postsurgical changes with coarsened interstitium. No pneumothorax. Blunting of the left costophrenic angle. Hyperinflation suggests COPD. Hypertrophic and degenerative change of the spine. Arthropathy s houlders. IMPRESSION: 1. Coarsened interstitium correlate for mild venous congestion or interstitial pneumonitis.
[2020-10-09] MEDS ORDERED: FUROSEMIDE 10 MG/ML 2 ML VIAL IV STA (08:55)
[2020-10-09] MEDS ORDERED: NITROGLYCERIN OINT 1 INCH/GM PACKET TOPICAL STA (08:55)
[2020-10-09 09:00] LABS: Band Neutrophils % 14 %; Basophils # (M) 0.03 k/uL (0-0.2); Eosinophils # (M) 0.03 k/uL (0-0.7); Lymphocytes # (M) 0.12 k/uL (1.0-4.8); Metamyelocytes # (M) 0.03 k/uL (0); Metamyelocytes % 1 %; Monocytes # (M) 0.22 k/uL (0-1.0); Neutrophils % (M) 73 %; Nucleated Red Blood Cells 0 /100 WBC (0-0); Total Cells Counted 200
[2020-10-09] MEDS ORDERED: APIXABAN 5 MG TAB PO SCH (09:00)
[2020-10-09] MEDS ORDERED: SODIUM BICARBONATE TAB 650 MG TAB PO SCH (09:00)
[2020-10-09] MEDS ORDERED: EVEROLIMUS 0.75 MG PO SCH (09:00)
[2020-10-09] MEDS: ASPIRIN 81 MG PO SCH (11:06)
[2020-10-09] MEDS: TACROLIMUS 1 MG CAP PO SCH ×2 (11:06→19:56)
[2020-10-09] MEDS: ATORVASTATIN 40 MG TAB PO SCH (11:06)
[2020-10-09] MEDS: hydrALAZINE HCL 50 MG TAB PO SCH (11:06)
[2020-10-09] MEDS: FERROUS SULFATE 325 MG TAB PO SCH (11:06)
--- NOTE | 2020-10-09 12:00 | ECHOF ---
Referral Reason:CHF MEASUREMENTS -------- HEIGHT: 167.6 cm WEIGHT: 72.6 kg BP: 144/78 RVIDd: 3.9 cm (< 3.3) IVSd: 1.4 cm (0.6 - 1.1) LVIDd: 4.3 cm (3.9 - 5.3) LVPWd: 1.1 cm (0.6 - 1.1) IVSs: 1.8 cm LVIDs: 3.9 cm LVPWs: 1.4 cm LA Diam: 3.7 cm (2.7 - 3.8) LAESV Index (A-L): 32.09 ml/m Ao Diam: 3.9 cm (2.0 - 3.7) AV Cusp: 2.3 cm (1.5 - 2.6) MV EXCURSION: 16.920 mm (> 18.000) MV EF SLOPE: 58 mm/s (70 - 150) EPSS: 0.8 cm MV E Vikram: 1.05 m/s MV DecT: 181 ms MV A Vikram: 0.65 m/s MV E/A Ratio: 1.60 AR PHT: 559 ms RAP: 5.00 mmHg RVSP: 49.04 mmHg FINDINGS -------- This was a technically good study. The left ventricular size is normal. There is moderate concentric left ventricular hypertrophy. O verall left ventricular systolic function is mildly impaired with, an EF between 45 - 50 %. Pseudon ormal LV filling pattern, consistent with elevated LA pressure. Apical septum LV wall motion is hyp okinetic. The right ventricle is moderate to severely enlarged. LA is midly dilated 29-33ml/m2. The right atrium is normal in size. Interatrial and interventricular septum intact. There is mild aortic valve sclerosis. Trace to mild aortic regurgitation. The mitral valve leaflets are mildly thickened. Mild mitral annular calcification present. Mild m itral regurgitation is present. [id number] tricuspid regurgitation present. There is moderate pulmonary hypertension. The r ight ventricular systolic pressure, as measured by Doppler, is 49.04mmHg. Trace/mild (physiologic) pulmonic regurgitation. The aortic root is dilated measuring 3.9cm. Normal inferior vena cava with normal inspiratory collapse consistent with estimated right atrial pre ssure of 5 mmHg. There is no pericardial effusion. CONCLUSIONS -------- 1. The left ventricular size is normal. 2. There is moderate concentric left ventricular hypertrophy. 3. Overall left ventricular systolic function is mildly impaired with, an EF between 45 - 50 %. 4. Pseudonormal LV filling pattern, consistent with elevate LA pressure. 5. Apical septum LV wall motion is hypokinetic. 6. The right ventricle is moderate to severely enlarged. 7. LA is midly dilated 29-33ml/m2. 8. There is mild aortic valve sclerosis. 9. Trace to mild aortic regurgitation. 10. The mitral valve leaflets are mildly thickened. 11. Mild mitral annular calcification present. 12. Mild mitral regurgitation is present. 13. [id number] tricuspid regurgitation present. 14. There is moderate pulmonary hypertension. 15. The right ventricular systolic pressure, as measured by Doppler, is 49.04mmHg. 16. Trace/mild (physiologic) pulmonic regurgitation. 17. The aortic root is dilated measuring 3.9cm. 18. There is no pericardial effusion. FLAKE MILLER HELPER: Emi Umana RDCS
--- NOTE | 2020-10-09 12:14 | P.HPIM ---
History of Present Illness 70-year-old pleasant male came in with chief complaints of chronic cough and some shortness of breath, question will orthopnea. Patient denied any fever chills patient denied any nausea vomiting. Patient denied any gastroesophageal reflux disease symptoms, patient denied any history of for COPD or asthma. Patient mostly has dry cough he denied any smoking history. Patient had a chest x-ray which showed pulmonary vascular congestion, was unable to appreciate JVD but does have highly elevated BNP of around 20,000. Patient appeared to be in heart failure will be started on Lasix. She and creatinine is presently 3.57 patient previous creatinine was around 2.2 during his previous hospitalization patient had renal transplant twice in the past. Patient received 2 courses of antibiotics believing that patient may have bronchitis which didn't improve his symptoms patient denied any predominant gastroesophageal reflux disease symptoms. Patient doesn't appear to have pharyngitis Review of Systems REVIEW OF SYSTEMS: CONSTITUTIONAL: No fever, no malaise, no fatigue. HEENT: No recent visual problems or hearing problems. Denied any sore throat. CARDIOVASCULAR: No chest pain,PND, no palpitations, no syncope. PULMONARY: no hemoptysis. GASTROINTESTINAL: No diarrhea, no nausea, no vomiting, patient was complaining of abdominal pain secondary to chronic cough and musculoskeletal abdominal pain NEUROLOGICAL: No headaches, no weakness, no numbness. HEMATOLOGICAL: Denies any bleeding or petechiae. GENITOURINARY: Denies any burning micturition, frequency, or urgency. MUSCULOSKELETAL/RHEUMATOLOGICAL: Denies any joint pain, swelling, or any muscle pain. ENDOCRINE: Denies any polyuria or polydipsia. The rest of the 14-point review of systems is negative. Past Medical History Past Medical History: Coronary Artery Disease (CAD), Chest Pain / Angina, Diabetes Mellitus, Hyperlipidemia, Hypertension, Myocardial Infarction ([place]), Renal Disease Additional Past Medical History / Comment(s): migraines, umbilical and inguinal hernia, polycystic kidney disease Last Myocardial Infarction Date:: unk History of Any Multi-Drug Resistant Organisms: None Reported Past Surgical History: Coronary Bypass/CABG, Heart Catheterization With Stent Additional Past Surgical History / Comment(s): nile nephrectomy/ kidney trans plant on rt in 2002, heart cath with 2 stents, colonocsopy.polyps removed-benign Past Anesthesia/Blood Transfusion Reactions: No Reported Reaction Date of Last Stent Placement:: 2013 Past Psychological History: No Psychological Hx Reported Smoking Status: Never smoker Past Alcohol Use History: None Reported Past Drug Use History: None Reported - Past Family History Father Family Medical History: Cancer Additional Family Medical History / Comment(s): LUNG CANCER Mother Additional Family Medical History / Comment(s): POLYCYSTIC KIDNEY DISEASE Medications and Allergies Home Medications Medication Instructions Recorded Confirmed Type Ergocalciferol [Vitamin D2 50,000 unit PO Q30D 01/12/15 10/09/20 History (DRISDOL)] atenoloL [Tenormin] 50 mg PO HS@209901/12/15 10/09/20 History Aspirin EC [Ecotrin Low Dose] 81 mg PO DAILY@89907/31/16 10/09/20 History Insulin NPH Human Isophane 10 unit SQ AC-SUPPER 07/31/16 10/09/20 History [NovoLIN N] Insulin NPH Human Isophane 30 unit SQ AC-BRKFST 07/31/16 10/09/20 History [NovoLIN N] Tacrolimus [Prograf] 2 mg PO DAILY@89907/31/16 10/09/20 History Apixaban [Eliquis] 5 mg PO BID@0900,209902/27/20 10/09/20 History Everolimus 2.25 mg PO BID@0900,209902/27/20 10/09/20 History Ferrous Sulfate [Iron (65 MG 65 mg PO DAILY@89902/27/20 10/09/20 History Elemental)] Multivitamins, Thera [Multivitamin 1 tab PO DAILY@89902/27/20 10/09/20 History (formulary)] Nitroglycerin Sl Tabs [Nitrostat] 0.4 mg SL Q5M PRN 02/27/20 10/09/20 History Atorvastatin [Lipitor] 40 mg PO DAILY@89907/16/20 10/09/20 History Furosemide [Lasix] 40 mg PO DAILY@89910/01/20 10/09/20 History Amoxicillin 500 mg PO BID@0900,209910/09/20 10/09/20 History Benzonatate [Tessalon Perles] 100 - 200 mg PO TID PRN 10/09/20 10/09/20 History Sodium Bicarbonate Tab 1,300 mg PO DAILY@89910/09/20 10/09/20 History Tacrolimus [Prograf] 1 mg PO HS@2100 10/09/20 10/09/20 History Trelegy Ellipta(Unknown Dose) 1 puff INHALATION RT-DAILY 10/09/20 10/09/20 History hydrALAZINE HCL [Apresoline] 25 mg PO HS@2100 10/09/20 10/09/20 History hydrALAZINE HCL [Apresoline] 50 mg PO DAILY@0900 10/09/20 10/09/20 History Allergies Allergy/AdvReac Type Severity Reaction Status Date / Time No Known Allergies Allergy Verified 10/09/20 06:42 Physical Exam Vitals: Vital Signs Temp Pulse Resp BP Pulse Ox 10/09/20 09:00 98.0 F 76 18 144/78 95 10/09/20 06:55 25 H 10/09/20 06:37 97.6 F 82 24 159/82 93 L Intake and Output 10/08/20 10/09/20 10/09/20 22:59 06:59 14:59 Other: Weight 72.575 kg PHYSICAL EXAMINATION: GENERAL: The patient is alert and oriented x3, not in any acute distress. Well developed, well nourished. HEENT: Pupils are round and equally reacting to light. EOMI. No scleral icterus. No conjunctival pallor. Normocephalic, atraumatic. No pharyngeal erythema. No thyromegaly. CARDIOVASCULAR: S1 and S2 present. No murmurs, rubs, or gallops. PULMONARY: Chest is clear to auscultation, no wheezing or crackles. ABDOMEN: Soft, nontender, nondistended, normoactive bowel sounds. No palpable organomegaly. MUSCULOSKELETAL: No joint swelling or deformity. EXTREMITIES: No cyanosis, clubbing, or pedal edema. NEUROLOGICAL: Gross neurological examination did not reveal any focal deficits. SKIN: No rashes. Results CBC & Chem 7: 10/09/20 07:06 10/09/20 07:06 Labs: Abnormal Lab Results - Last 24 Hours (Table) 10/09/20 10/09/20 10/09/20 Range/Units 07:06 07:06 07:06 WBC 3.1 L (3.8-10.6) k/uL RBC 3.92 L (4.30-5.90) m/uL Hgb 9.3 L (13.0-17.5) gm/dL Hct 28.5 L (39.0-53.0) % MCV 72.6 L (80.0-100.0) fL MCH 23.7 L (25.0-35.0) pg RDW 21.2 H (11.5-15.5) % Lymphocytes # (Manual) 0.12 L (1.0-4.8) k/uL Metamyelocytes # (Man) 0.03 H (0) k/uL PT 13.2 H (9.0-12.0) sec INR 1.3 H (<1.2) Sodium 135 L (137-145) mmol/L Potassium 5.3 H (3.5-5.1) mmol/L Chloride 108 H (98-107) mmol/L Carbon Dioxide 16 L (22-30) mmol/L BUN 83 H (9-20) mg/dL Creatinine 3.57 H (0.66-1.25) mg/dL Glucose 109 H (74-99) mg/dL Alkaline Phosphatase 201 H (38-126) U/L Assessment and Plan Plan: Chronic cough with the progressive shortness of breath: Patient probably has CHF exacerbation patient was started on IV Lasix and will be monitored. Patient will need higher dose of Lasix. Patient had an echocardiogram which showed decreased EF of around 45-50% left ventricular hypertrophy which was moderate and the right ventricular systolic pressures of around 49 -Acute renal failure on chronic kidney disease stage V acute renal failure secondary to prerenal azotemia may be hypervolemic state of congestive heart fa ilure. Patient was started on a 60 mg IV twice a day of Lasix nephrology was consulted -Congestive heart failure chronic systolic is less than rest or dysfunction with acute exacerbation -Post renal transplant: Patient the was resumed on home immunosuppressive medications, nephrology was consulted -Hyperkalemia secondary to renal failure -Coronary artery disease -Type 2 diabetes mellitus -Hypertension -Hyperlipidemia -Coronary artery disease with stents in the past -DVT prophylaxis patient is already on Eliquis, unsure why he is on Eliquis will cut down the dose now will verify with the patient regarding reason behind using Eliquis
--- NOTE | 2020-10-09 13:53 | P.NPCON ---
History of Present Illness - Reason for Consult acute renal failure, chronic renal failure - History of Present Illness Reason for consultation: Acute kidney injury on chronic kidney disease and renal transplant management. History of present illness: Patient is a 74-year-old male seen in renal consultation for acute kidney injury on chronic kidney disease and renal transplant management. Patient received a living nonrelated renal transplant in 2016. He is maintained on tacrolimus and everolimus. Patient has chronic kidney disease stage IV with baseline creatinine near 2.5. Creatinine today on admission was 3.57. Patient presented to the hospital for shortness of breath. She states has been going on for the last few months. Patient states he saw cardiology as well as pulmonology however his symptoms have not improved. He admits to a cough with clear sputum. No fever or chills. No vomiting or diarrhea. Patient's proBNP is elevated at 20,300. Chest x-ray suggestive of pulmonary vascular congestion. Echocardiogram revealed ejection fraction of 45-50% with mild to moderate tricuspid regurgitation as well as moderate pulmonary hypertension. He denies use of nonsteroidals. Good urine output. No hematuria or dysuria. No chest pain. Blood pressure stable. Denies any significant edema. Vital signs are stable. General: The patient appeared well nourished and normally developed. HEENT: Head exam is unremarkable. Neck is without jugular venous distension. LUNGS: Breath sounds decreased. HEART: Rate and Rhythm are regular. ABDOMEN: Soft, nontender. EXTREMITITES: Trace edema bilateral lower extremities. Past Medical History Past Medical History: Coronary Artery Disease (CAD), Chest Pain / Angina, Diabetes Mellitus, Hyperlipidemia, Hypertension, Myocardial Infarction ([place]), Renal Disease Additional Past Medical History / Comment(s): migraines, umbilical and inguinal hernia, polycystic kidney disease Last Myocardial Infarction Date:: unk History of Any Multi-Drug Resistant Organisms: None Reported Past Surgical History: Coronary Bypass/CABG, Heart Catheterization With Stent Additional Past Surgical History / Comment(s): nile nephrectomy/ kidney transplant on rt in 2002, heart cath with 2 stents, colonocsopy.polyps removed- benign Past Anesthesia/Blood Transfusion Reactions: No Reported Reaction Date of Last Stent Placement:: 2013 Past Psychological History: No Psychological Hx Reported Smoking Status: Never smoker Past Alcohol Use History: None Reported Past Drug Use History: None Reported - Past Family History Father Family Medical History: Cancer Additional Family Medical History / Comment(s): LUNG CANCER Mother Additional Family Medical History / Comment(s): POLYCYSTIC KIDNEY DISEASE Medications and Allergies Home Medications Medication Instructions Recorded Confirmed Type Ergocalciferol [Vitamin D2 50,000 unit PO Q30D 01/12/15 10/09/20 History (DRISDOL)] atenoloL [Tenormin] 50 mg PO HS@209901/12/15 10/09/20 History Aspirin EC [Ecotrin Low Dose] 81 mg PO DAILY@89907/31/16 10/09/20 History Insulin NPH Human Isophane 10 unit SQ AC-SUPPER 07/31/16 10/09/20 History [NovoLIN N] Insulin NPH Human Isophane 30 unit SQ AC-BRKFST 07/31/16 10/09/20 History [NovoLIN N] Tacrolimus [Prograf] 2 mg PO DAILY@89907/31/16 10/09/20 History Apixaban [Eliquis] 5 mg PO BID@0900,209902/27/20 10/09/20 History Everolimus 2.25 mg PO BID@0900,209902/27/20 10/09/20 History Ferrous Sulfate [Iron (65 MG 65 mg PO DAILY@89902/27/20 10/09/20 History Elemental)] Multivitamins, Thera [Multivitamin 1 tab PO DAILY@89902/27/20 10/09/20 History (formulary)] Nitroglycerin Sl Tabs [Nitrostat] 0.4 mg SL Q5M PRN 02/27/20 10/09/20 History Atorvastatin [Lipitor] 40 mg PO DAILY@89907/16/20 10/09/20 History Furosemide [Lasix] 40 mg PO DAILY@89910/01/20 10/09/20 History Amoxicillin 500 mg PO BID@0900,209910/09/20 10/09/20 History Benzonatate [Tessalon Perles] 100 - 200 mg PO TID PRN 10/09/20 10/09/20 History Fluticasone/Umeclidin/Vilanter 1 puff INHALATION RT-DAILY 10/09/20 10/09/20 History [Trelegy Ellipta 100-62.5-25] Sodium Bicarbonate Tab 1,300 mg PO DAILY@89910/09/20 10/09/20 History Tacrolimus [Prograf] 1 mg PO HS@2100 10/09/20 10/09/20 History hydrALAZINE HCL [Apresoline] 25 mg PO HS@2100 10/09/20 10/09/20 History hydrALAZINE HCL [Apresoline] 50 mg PO DAILY@0900 10/09/20 10/09/20 History Allergies Allergy/AdvReac Type Severity Reaction Status Date / Time No Known Allergies Allergy Verified 10/09/20 06:42 Physical Exam Vitals: Vital Signs Temp Pulse Resp BP Pulse Ox 10/09/20 09:00 98.0 F 76 18 144/78 95 10/09/20 06:55 25 H 10/09/20 06:37 97.6 F 82 24 159/82 93 L Intake and Output 10/08/20 10/09/20 10/09/20 22:59 06:59 14:59 Other: Weight 72.575 kg Results - Lab Results Most recent lab results Calcium 9.4 mg/dL (8.4-10.2) 10/09/20 07:06 Phosphorus 4.1 mg/dL (2.5-4.5) 10/09/20 07:06 Magnesium 2.0 mg/dL (1.6-2.3) 10/09/20 07:06 10/09/20 07:06 10/09/20 07:06 Assessment and Plan Plan: Assessment: 1. Acute allograft dysfunction mostly prerenal secondary to cardiorenal syndrome. Creatinine 3.56 today. Renal ultrasound from February 2020 revealed no evidence of hydronephrosis. 2. 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 Biopsy done in 2019 revealed no evidence of rejection. 3. Status post living unrelated kidney transplant in June 2016 with [facility]. Maintained on tacrolimus and everolimus. 4. Volume overload. 5. Acute on chronic systolic CHF with ejection fraction of 45-50% with mild to moderate tricuspid regurgitation and moderate pulmonary hypertension. 6. Metabolic acidosis secondary to acute kidney injury. 7. Anemia of chronic kidney disease. With iron deficiency. 8. Diabetes mellitus. 9. History of bilateral nephrectomies. Plan: Maintain Lasix 60 mg IV twice daily. Home antirejection meds resumed. Check Prograf level. Add oral sodium bicarb. Avoid nephrotoxins. Continue to monitor renal function and urine output. Repeat renal ultrasound. Check iron studies. Thank you for the consultation. I will continue to follow the patient with you during his hospital stay.
[2020-10-09] MEDS: FUROSEMIDE 10 MG/ML 10 ML VIAL IV SCH ×2 (14:45→19:55)
--- NOTE | 2020-10-09 14:55 | US ---
EXAMINATION TYPE: US kidneys/renal and bladder DATE OF EXAM: 10/09/2020 COMPARISON: 02/29/2020 CLINICAL HISTORY: sameer. SAMEER Right kidney removed left pelvic transplant kidney . EXAM MEASUREMENTS: Right Kidney: Surgically absent cm Left Kidney: Transplant 10.7 x 4.6 x 4.3 cm Right Kidney: Surgically absent Left Kidney: Transplant appears wnl Bladder: Anechoic Bilateral Jets seen: no No hydronephrosis or new. Flow is documented IMPRESSION: Transplant kidney demonstrates no acute abnormality.
[2020-10-09] MEDS: INSULIN NPH 300 UNIT/3 ML VIAL SQ SCH (17:36)
[2020-10-09 17:44] LABS: Glucose,Whole Blood 257 mg/dL (75-99)
[2020-10-09] MEDS: hydrALAZINE HCL 25 MG TAB PO SCH (19:55)
[2020-10-09] MEDS: atenoloL 50 MG TAB PO SCH (19:55)
[2020-10-09] MEDS: SODIUM BICARBONATE TAB 650 MG TAB PO SCH (19:55)
[2020-10-09] MEDS: APIXABAN 2.5 MG TABLET PO SCH (19:55)
[2020-10-09] MEDS: EVEROLIMUS 0.75 MG PO SCH (20:02)
[2020-10-09 20:12] LABS: Glucose,Whole Blood 245 mg/dL (75-99)
[2020-10-09] MEDS: INSULIN ASPART (NovoLOG) 100 UNIT/ML VIAL SQ SCH (20:17)
[2020-10-10 06:54] LABS: % Iron Saturation 24.63 (15.00-50.00)
[2020-10-10 07:12] LABS: Ferritin 1439.7 ng/mL (22.0-322.0)
[2020-10-10 07:23] LABS: Glucose,Whole Blood 166 mg/dL (75-99)
[2020-10-10 08:05] LABS: Magnesium 1.9 mg/dL (1.6-2.3); Potassium 4.9 mmol/L (3.5-5.1)
[2020-10-10] MEDS: SYMBICORT 80-4.5 MCG INHALER INHALATION SCH ×2 (08:24→21:11)
[2020-10-10] MEDS: IPRATROPIUM 0.5 MG/2.5 ML NEBU INHALATION SCH ×4 (08:24→21:11)
[2020-10-10] MEDS: EVEROLIMUS 0.75 MG PO SCH ×2 (08:31→20:41)
[2020-10-10] MEDS: TACROLIMUS 1 MG CAP PO SCH ×2 (08:32→21:07)
[2020-10-10] MEDS: ATORVASTATIN 40 MG TAB PO SCH (08:32)
[2020-10-10] MEDS: APIXABAN 2.5 MG TABLET PO SCH ×2 (08:32→20:40)
[2020-10-10] MEDS: hydrALAZINE HCL 50 MG TAB PO SCH (08:32)
[2020-10-10] MEDS: FERROUS SULFATE 325 MG TAB PO SCH (08:32)
[2020-10-10] MEDS: ASPIRIN 81 MG PO SCH (08:33)
[2020-10-10] MEDS: INSULIN ASPART (NovoLOG) 100 UNIT/ML VIAL SQ SCH ×4 (08:33→20:42)
[2020-10-10] MEDS: FUROSEMIDE 10 MG/ML 10 ML VIAL IV SCH (08:33)
[2020-10-10] MEDS: SODIUM BICARBONATE TAB 650 MG TAB PO SCH ×2 (08:33→20:38)
[2020-10-10] MEDS: INSULIN NPH 300 UNIT/3 ML VIAL SQ SCH ×2 (08:34→17:45)
--- NOTE | 2020-10-10 10:46 | P.PN ---
Subjective Patient is seen in follow for acute kidney injury on chronic kidney disease and renal phosphorus management. Renal function fairly stable. Currently on room air. Dyspnea improved. Good urine output. Hemodynamically stable. Vital signs are stable. General: The patient appeared well nourished and normally developed. HEENT: Head exam is unremarkable. Neck is without jugular venous distension. LUNGS: Breath sounds decreased. HEART: Rate and Rhythm are regular. ABDOMEN: Soft, nontender. EXTREMITITES: No edema. Objective - Vital Signs Vital signs: Vital Signs Temp 98.7 F 10/10/20 08:25 Pulse 62 10/10/20 08:25 Resp 18 10/10/20 08:25 BP 132/61 10/10/20 08:25 Pulse Ox 96 10/10/20 08:25 Intake & Output 10/09/20 10/10/20 10/10/20 18:59 06:59 18:59 Intake Total 240 660 Output Total 500 1600 Balance 240 160 -1600 Weight 67.4 kg 66.4 kg Intake: Oral 240 660 Output: Urine 500 1600 Other: Voiding Method Toilet Toilet Urinal Urinal # Voids 2 # Bowel Movements 1 1 - Labs CBC & Chem 7: 10/09/20 07:06 10/10/20 07:29 Labs: Abnormal Lab Results - Last 24 Hours (Table) 10/09/20 10/09/20 10/09/20 Range/Units 07:06 17:29 20:10 Sodium (137-145) mmol/L Carbon Dioxide (22-30) mmol/L BUN (9-20) mg/dL Creatinine (0.66-1.25) mg/dL Glucose (74-99) mg/dL POC Glucose (mg/dL) 257 H 245 H (75-99) mg/dL Ferritin 1439.7 H (22.0-322.0) ng/mL 10/10/20 10/10/20 Range/Units 07:21 07:29 Sodium 133 L (137-145) mmol/L Carbon Dioxide 18 L (22-30) mmol/L BUN 87 H (9-20) mg/dL Creatinine 3.69 H (0.66-1.25) mg/dL Glucose 149 H (74-99) mg/dL POC Glucose (mg/dL) 166 H (75-99) mg/dL Ferritin (22.0-322.0) ng/mL Assessment and Plan Plan: Assessment: 1. Acute allograft dysfunction mostly prerenal secondary to cardiorenal syndrome. Creatinine 3.69 today. No hydronephrosis noted. 2. 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 Biopsy done in 2019 revealed no evidence of rejection. 3. Status post living unrelated kidney transplant in June 2016 with [facility]. Maintained on tacrolimus and everolimus. 4. Volume overload. 5. Acute on chronic systolic CHF with ejection fraction of 45-50% with mild to moderate tricuspid regurgitation and moderate pulmonary hypertension. 6. Metabolic acidosis secondary to acute kidney injury maintained on oral bicarb. 7. Anemia of chronic kidney disease. Iron replete. 8. Diabetes mellitus. 9. History of bilateral nephrectomies. Plan: Stop IV Lasix. Add Demadex 20 mg once daily. Maintain home antirejection medications. Follow-up prograf level. Avoid nephrotoxins. Continue to monitor renal function and urine output.
[2020-10-10 10:51] VITALS: BMI 23.6
[2020-10-10 11:49] LABS: Glucose,Whole Blood 172 mg/dL (75-99)
--- NOTE | 2020-10-10 13:39 | P.CRDCN ---
History of Present Illness Consult date: 10/10/20 History of present illness: HISTORY OF PRESENT ILLNESS: This is a 74-year-old male with a past medical history significant for atrial fibrillation, coronary artery disease with previous CABG and subsequent PCI, hypertension, hyperlipidemia, chronic kidney disease with previous transplant 2, and diabetes mellitus. Patient follows in the office with Dr. El. We have been asked to see the patient in consultation for CHF. Patient examined at the bedside. Patient states he has been feeling short of breath for approximately 3 months. He states his shortness of breath is only with exertion. 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 Patient presented to the emergency room for further evaluation. Patient was started on IV Lasix yesterday. Patient states his shortness of breath has improved. He currently denies chest pain or pressure. Denies dizziness or lightheadedness. EKG reveals sinus mechanism. Right bundle branch block. T-wave inversions in inferior leads. Chest xray coarsened interstitium correlate for mild venous congestion or interstitial pneumonitis Laboratory data: WBC 3.1. Hemoglobin 9.3. Platelet count 157. Sodium 133. Potassium 4.9. BUN 87. Creatinine 3.69. Troponin negative 1. BNP 20,300. Current home cardiac medications include hydralazine 50 mg in the morning and 25 mg at night, atenolol 50 mg daily, Lasix 40 mg daily, Lipitor 40 mg daily, aspirin 81 mg daily, and Eliquis 5 mg twice a day Echocardiogram completed revealed ejection fraction 45-50%, mild to moderate tricuspid regurgitation, mild aortic regurgitation, and moderate pulmonary hypertension Cardiac catheterization history: [address] El. Patient underwent PCI of proximal segment of SVG to PLV REVIEW OF SYSTEMS: At the time of my exam: CONSTITUTIONAL: Denies fever or chills. HEENT: Denies blurred vision, vision changes, or eye pain. Denies hemoptysis CARDIOVASCULAR: Denies chest pain. Denies orthopnea. Denies PND. Denies palpitations RESPIRATORY: Denies shortness of breath. GASTROINTESTINAL: Denies abdominal pain. Denies nausea or vomiting. HEMATOLOGIC: Denies bleeding disorders. GENITOURINARY: Denies any blood in urine. SKIN: Denies pruitis. Denies rash. PHYSICAL EXAM: VITAL SIGNS: Reviewed. GENERAL: Well-developed in no acute distress. HEENT: Head is normocephalic. Pupils are equal, round. Sclerae anicteric. Mucous membranes of the mouth are moist. Neck supple. No JVD or thyromegaly LUNGS: Respirations even and unlabored. Lungs essentially clear to auscultation bilaterally. HEART: Regular rate and rhythm. S1 and S2 heard. ABDOMEN: Soft. Nondistended. Nontender. EXTREMITIES: Normal range of motion. No clubbing or cyanosis. Peripheral pulses intact. No lower extremity edema NEUROLOGIC: Awake and alert. Oriented x 3. ASSESSMENT: Shortness of breath 3 months Possible mild acute exacerbation of chronic diastolic heart failure, Ef 45-50%, BNP 20,330, clinically does not appear to be in heart failure Coronary artery disease with previous CABG , 2012, and PCI to proximal segment of SVG to PLV, 2014 Paroxysmal atrial fibrillation, on anticoagulation with Eliquis Hypertension Hyperlipidemia Diabetes mellitus Acute on chronic kidney disease History of kidney transplant 2 PLAN: Resume home cardiac medications Continue anticoagulation with Eliquis We'll defer diuresis to nephrology Further recommendations pending patient's course Nurse practitioner note has been reviewed by physician. Signing provider agrees with the documented findings, assessment, and plan of care. Past Medical History Past Medical History: Atrial Fibrillation, Coronary Artery Disease (CAD), Chest Pain / Angina, Diabetes Mellitus, Hyperlipidemia, Hypertension, Myocardial Infarction (NC), Renal Disease Additional Past Medical History / Comment(s): Abdominal pain since coughing so much past few weeks, ischemic heart disease, IDDM type II, neuropathy bilateral feet, CKD stage III/polycystic kidney disease/had L renal transplant in 2002 (no longer functions and a r kidney transplant in 2015 that does function), immunocompromised, anemia, hypoalbuminemia, L leg edema (donor site from L leg), L inguinal and umbilical hernias. Last Myocardial Infarction Date:: 2014 History of Any Multi-Drug Resistant Organisms: None Reported Past Surgical History: Coronary Bypass/CABG, Heart Catheterization With Stent Additional Past Surgical History / Comment(s): Bilateral nephrectomies, renal biopsies, 2002 L kidney transplant, 2016 R kidney transplant, 2013 CABG 4 vessel, PCI with stents in 2011 and 2014, colonoscopy/benign polypectomy Past Anesthesia/Blood Transfusion Reactions: No Reported Reaction Additional Past Anesthesia/Blood Transfusion Reaction / Comment(s): Pt received blood in 2002 with no reaction. Date of Last Stent Placement:: 2014 Smoking Status: Never smoker - Past Family History Brother(s) Family Medical History: Renal Disease Additional Family Medical History / Comment(s): Polycystic kidney disease Sister(s) Family Medical History: Renal Disease Additional Family Medical History / Comment(s): Polycystic kidney disease. Father Family Medical History: Cancer Additional Family Medical History / Comment(s): LUNG CANCER Mother Family Medical History: Renal Disease Additional Family Medical History / Comment(s): POLYCYSTIC KIDNEY DISEASE Medications and Allergies Home Medications Medication Instructions Recorded Confirmed Type Ergocalciferol [Vitamin D2 50,000 unit PO Q30D 01/12/15 10/09/20 History (DRISDOL)] atenoloL [Tenormin] 50 mg PO HS@209901/12/15 10/09/20 History Aspirin EC [Ecotrin Low Dose] 81 mg PO DAILY@0900 07/31/16 10/09/20 History Insulin NPH Human Isophane 10 unit SQ AC-SUPPER 07/31/16 10/09/20 History [NovoLIN N] Insulin NPH Human Isophane 30 unit SQ AC-BRKFST 07/31/16 10/09/20 History [NovoLIN N] Tacrolimus [Prograf] 2 mg PO DAILY@00 07/31/16 10/09/20 History Apixaban [Eliquis] 5 mg PO BID@0900,209902/27/20 10/09/20 History Everolimus 2.25 mg PO BID@0900,209902/27/20 10/09/20 History Ferrous Sulfate [Iron (65 MG 65 mg PO DAILY@89902/27/20 10/09/20 History Elemental)] Multivitamins, Thera [Multivitamin 1 tab PO DAILY@00 02/27/20 10/09/20 History (formulary)] Nitroglycerin Sl Tabs [Nitrostat] 0.4 mg SL Q5M PRN 02/27/20 10/09/20 History Atorvastatin [Lipitor] 40 mg PO DAILY@0900 07/16/20 10/09/20 History Furosemide [Lasix] 40 mg PO DAILY@00 10/01/20 10/09/20 History Amoxicillin 500 mg PO BID@0900,209910/09/20 10/09/20 History Benzonatate [Tessalon Perles] 100 - 200 mg PO TID PRN 10/09/20 10/09/20 History Fluticasone/Umeclidin/Vilanter 1 puff INHALATION RT-DAILY 10/09/20 10/09/20 History [Trelegy Ellipta 100-62.5-25] Sodium Bicarbonate Tab 1,300 mg PO DAILY@0900 10/09/20 10/09/20 History Tacrolimus [Prograf] 1 mg PO HS@2100 10/09/20 10/09/20 History hydrALAZINE HCL [Apresoline] 25 mg PO HS@2100 10/09/20 10/09/20 History hydrALAZINE HCL [Apresoline] 50 mg PO DAILY@0900 10/09/20 10/09/20 History Allergies Allergy/AdvReac Type Severity Reaction Status Date / Time No Known Allergies Allergy Verified 10/09/20 06:42 Physical Exam Vitals: Vital Signs Temp Pulse Resp BP Pulse Ox 10/10/20 11:34 62 16 119/65 99 10/10/20 08:25 98.7 F 62 18 132/61 96 10/10/20 03:57 98.5 F 71 16 102/51 100 10/10/20 00:50 63 18 10/10/20 00:00 97.6 F 63 18 130/71 97 10/09/20 20:00 98 F 71 16 149/78 94 L 10/09/20 15:53 98.1 F 65 16 148/91 97 10/09/20 14:45 98.4 F 75 16 140/78 95 Intake and Output 10/09/20 10/10/20 10/10/20 22:59 06:59 14:59 Intake Total 900 240 Output Total 500 1600 Balance 900 -500 -1360 Intake: Oral 900 240 Output: Urine 500 1600 Other: Voiding Method Toilet Toilet Toilet Urinal Urinal Urinal # Voids 2 1 # Bowel Movements 1 0 Weight 67.4 kg 66.4 kg 66.4 kg Results 10/09/20 07:06 10/10/20 07:29 Comprehensive Metabolic Panel 10/10/20 Range/Units 07:29 Sodium 133 L (137-145) mmol/L Potassium 4.9 (3.5-5.1) mmol/L Chloride 104 (98-107) mmol/L Carbon Dioxide 18 L (22-30) mmol/L BUN 87 H (9-20) mg/dL Creatinine 3.69 H (0.66-1.25) mg/dL Glucose 149 H (74-99) mg/dL Calcium 9.0 (8.4-10.2) mg/dL Current Medications Generic Name Dose Route Start Last Admin Trade Name Freq PRN Reason Stop Dose Admin Apixaban 2.5 mg 10/09/20 21:00 10/10/20 08:32 Apixaban 2.5 Mg Tablet PO 2.5 mg BID@0900,2100 [facility] Administration Aspirin 81 mg 10/09/20 09:00 10/10/20 08:33 Aspirin 81 Mg PO 81 mg DAILY@0900 [facility] Administration Atenolol 50 mg 10/09/20 21:00 10/09/20 19:55 Atenolol 50 Mg Tab PO 50 mg HS@2100 RICKIE Administration Atorvastatin Calcium 40 mg 10/09/20 09:00 10/10/20 08:32 Atorvastatin 40 Mg Tab PO 40 mg DAILY@0900 [facility] Administration Budesonide/Formoterol Fumarate 2 puff 10/10/20 08:00 10/10/20 08:24 Symbicort 80-4.5 Mcg Inhaler INHALATION Not Given RT-BID [facility] Ferrous Sulfate 325 mg 10/09/20 09:00 10/10/20 08:32 Ferrous Sulfate 325 Mg Tab PO 325 mg DAILY@0900 [facility] Administration Hydralazine HCl 25 mg 10/09/20 21:00 10/09/20 19:55 Hydralazine Hcl 25 Mg Tab PO 25 mg HS@2100 [facility] Administration Hydralazine HCl 50 mg 10/09/20 09:00 10/10/20 08:32 Hydralazine Hcl 50 Mg Tab PO 50 mg DAILY@0900 [facility] Administration Insulin Aspart 0 unit 10/09/20 21:00 10/10/20 12:21 Insulin Aspart (Novolog) 100 Unit/Ml Vial SQ 2 unit ACHS [facility] Administration Protocol Insulin Human NPH 30 unit 10/10/20 07:30 10/10/20 08:34 Insulin Nph 300 Unit/3 Ml Vial SQ 30 unit AC-BRKFST [facility] Administration Insulin Human NPH 10 unit 10/09/20 17:30 10/09/20 17:36 Insulin Nph 300 Unit/3 Ml Vial SQ 10 unit AC-SUPPER [facility] Administration Ipratropium Pierceton 0.5 mg 10/10/20 08:00 10/10/20 12:31 Ipratropium 0.5 Mg/2.5 Ml Nebu INHALATION Not Given RT-QID [facility] Patient's Own Med ( 2.25 mg 10/09/20 21:00 10/10/20 08:31 Everolimus [ PO 2.25 mg Everolimus] 0.75 Mg BID@0900,2100 [facility] Administration Tablet) Sodium Bicarbonate 1,300 mg 10/09/20 21:00 10/10/20 08:33 Sodium Bicarbonate Tab 650 Mg Tab PO 1,300 mg BID [facility] Administration Tacrolimus 2 mg 10/09/20 09:00 10/10/20 08:32 Tacrolimus 1 Mg Cap PO 2 mg DAILY@0900 [facility] Administration Tacrolimus 1 mg 10/09/20 21:00 10/09/20 19:56 Tacrolimus 1 Mg Cap PO 1 mg HS@2100 [facility] Administration Torsemide 20 mg 10/11/20 09:00 Torsemide 20 Mg Tab PO DAILY [facility] Intake and Output 10/09/20 10/10/20 10/10/20 22:59 06:59 14:59 Intake Total 900 240 Output Total 500 1600 Balance 900 -500 -1360 Intake: Oral 900 240 Output: Urine 500 1600 Other: Voiding Method Toilet Toilet Toilet Urinal Urinal Urinal # Voids 2 1 # Bowel Movements 1 0 Weight 67.4 kg 66.4 kg 66.4 kg Patient Weight 10/11/20 06:59 Weight 66.4 kg 10/09/20 07:06 10/10/20 07:29
--- NOTE | 2020-10-10 14:46 | P.PN ---
Subjective Progress Note Date: 10/10/20 70-year-old pleasant male came in with chief complaints of chronic cough and some shortness of breath, question will orthopnea. Patient denied any fever chills patient denied any nausea vomiting. Patient denied any gastroesophageal reflux disease symptoms, patient denied any history of for COPD or asthma. Patient mostly has dry cough he denied any smoking history. Patient had a chest x-ray which showed pulmonary vascular congestion, was unable to appreciate JVD but does have highly elevated BNP of around 20,000. Patient appeared to be in heart failure will be started on Lasix. She and creatinine is presently 3.57 patient previous creatinine was around 2.2 during his previous hospital[facility] patient had renal transplant twice in the past. Patient received 2 courses of antibiotics believing that patient may have bronchitis which didn't improve his symptoms patient denied any predominant gastroesophageal reflux disease symptoms. Patient doesn't appear to have pharyngitis 10/10/2020 Patient is seen and evaluated in follow-up with no acute overnight issues. Patient states his shortness of breath has improved and was maintained on IV Lasix. Nephrology following and current creatinine today is 3.69. Patient has diuresed well and will transition to oral Demadex 20 mg daily. Patient does follow closely with nephrology in the outpatient setting and home medications have been resumed. Cardiology also following. Review of systems: Constitutional: No reports of fatigue, fever, or chills Cardiovascular: No reports of chest pain or palpitations Respiratory: No reports of shortness of breath or cough GI: No reports of nausea, vomiting, or diarrhea : No reports of dysuria or retention Neurovascular: No reports of weakness or numbness All medications have been reviewed Objective - Vital Signs Vital signs: Vital Signs Temp 98.7 F 10/10/20 08:25 Pulse 62 10/10/20 08:25 Resp 18 10/10/20 08:25 BP 132/61 10/10/20 08:25 Pulse Ox 96 10/10/20 08:25 Intake & Output 10/09/20 10/10/20 10/10/20 18:59 06:59 18:59 Intake Total 240 660 Output Total 500 1600 Balance 240 160 -1600 Weight 67.4 kg 66.4 kg Intake: Oral 240 660 Output: Urine 500 1600 Other: Voiding Method Toilet Urinal # Voids 2 # Bowel Movements 1 1 - Exam GENERAL: The patient is alert and oriented x3, not in any acute distress. Well developed, well nourished. HEENT: Pupils are round and equally reacting to light. EOMI. No scleral icterus. No conjunctival pallor. Normocephalic, atraumatic. No pharyngeal erythema. No thyromegaly. CARDIOVASCULAR: S1 and S2 present. No murmurs, rubs, or gallops. PULMONARY: Chest is clear to auscultation, no wheezing or crackles. ABDOMEN: Soft, nontender, nondistended, normoactive bowel sounds. No palpable organomegaly. MUSCULOSKELETAL: No joint swelling or deformity. EXTREMITIES: No cyanosis, clubbing, or pedal edema. NEUROLOGICAL: Gross neurological examination did not reveal any focal deficits. SKIN: No rashes. - Labs CBC & Chem 7: 10/09/20 07:06 10/10/20 07:29 Labs: Abnormal Lab Results - Last 24 Hours (Table) 10/09/20 10/09/20 10/09/20 Range/Units 07:06 17:29 20:10 Sodium (137-145) mmol/L Carbon Dioxide (22-30) mmol/L BUN (9-20) mg/dL Creatinine (0.66-1.25) mg/dL Glucose (74-99) mg/dL POC Glucose (mg/dL) 257 H 245 H (75-99) mg/dL Ferritin 1439.7 H (22.0-322.0) ng/mL 10/10/20 10/10/20 Range/Units 07:21 07:29 Sodium 133 L (137-145) mmol/L Carbon Dioxide 18 L (22-30) mmol/L BUN 87 H (9-20) mg/dL Creatinine 3.69 H (0.66-1.25) mg/dL Glucose 149 H (74-99) mg/dL POC Glucose (mg/dL) 166 H (75-99) mg/dL Ferritin (22.0-322.0) ng/mL Assessment and Plan Assessment: -Chronic cough with progressive shortness of breath: Patient probably has CHF exacerbation patient was on IV Lasix and will be transitioned to oral Demadex. Nephrology and cardiology following. Patient had an echocardiogram which showed decreased EF of around 45-50% left ventricular hypertrophy which was moderate and the right ventricular systolic pressures of around 49 -Acute renal failure on chronic kidney disease stage V acute renal failure secondary to prerenal azotemia may be hypervolemic state of congestive heart failure. Patient was started on a 60 mg IV twice a day of Lasix and switch to oral Demadex today. Nephrology following -Congestive heart failure chronic systolic is less than rest or dysfunction with acute exacerbation -Post renal transplant: Patient was resumed on home immunosuppressive medications, nephrology following -Hyperkalemia secondary to renal failure -Coronary artery disease -Type 2 diabetes mellitus -Hypertension -Hyperlipidemia -Coronary artery disease with stents in the past -DVT prophylaxis patient is already on Eliquis, unsure why he is on Eliquis will cut down the dose now will verify with the patient regarding reason behind using Eliquis
[2020-10-10 16:59] LABS: Glucose,Whole Blood 116 mg/dL (75-99)
[2020-10-10 20:12] LABS: Glucose,Whole Blood 209 mg/dL (75-99)
[2020-10-10] MEDS: hydrALAZINE HCL 25 MG TAB PO SCH (20:38)
[2020-10-10] MEDS: atenoloL 50 MG TAB PO SCH (20:40)
[2020-10-11 06:05] LABS: Glucose,Whole Blood 118 mg/dL (75-99)
[2020-10-11 07:12] LABS: Glucose,Whole Blood 110 mg/dL (75-99)
[2020-10-11] MEDS: INSULIN ASPART (NovoLOG) 100 UNIT/ML VIAL SQ SCH ×2 (07:12→12:34)
[2020-10-11] MEDS: INSULIN NPH 300 UNIT/3 ML VIAL SQ SCH (07:13)
[2020-10-11] MEDS: ATORVASTATIN 40 MG TAB PO SCH (08:21)
[2020-10-11] MEDS: ASPIRIN 81 MG PO SCH (08:21)
[2020-10-11] MEDS: SODIUM BICARBONATE TAB 650 MG TAB PO SCH (08:21)
[2020-10-11] MEDS: hydrALAZINE HCL 50 MG TAB PO SCH (08:21)
[2020-10-11] MEDS: APIXABAN 2.5 MG TABLET PO SCH (08:21)
[2020-10-11] MEDS: FERROUS SULFATE 325 MG TAB PO SCH (08:21)
[2020-10-11] MEDS: EVEROLIMUS 0.75 MG PO SCH (08:22)
[2020-10-11] MEDS: TACROLIMUS 1 MG CAP PO SCH (08:23)
[2020-10-11 08:30] VITALS: RESP 16; TEMP 98
[2020-10-11] MEDS ORDERED: TORSEMIDE 20 MG TAB PO SCH (09:00)
[2020-10-11 09:01] LABS: Magnesium 1.9 mg/dL (1.6-2.3); Potassium 4.8 mmol/L (3.5-5.1)
[2020-10-11] MEDS: IPRATROPIUM 0.5 MG/2.5 ML NEBU INHALATION SCH ×2 (09:06→12:15)
[2020-10-11] MEDS: SYMBICORT 80-4.5 MCG INHALER INHALATION SCH (09:06)
--- NOTE | 2020-10-11 10:58 | P.PN ---
Subjective Patient is seen in follow for acute kidney injury on chronic kidney disease and renal transplant management. Renal function stable. Currently on room air. Dyspnea improved. Good urine output. Hemodynamically stable. No active complaints. Vital signs are stable. General: The patient appeared well nourished and normally developed. HEENT: Head exam is unremarkable. Neck is without jugular venous distension. LUNGS: Breath sounds decreased. HEART: Rate and Rhythm are regular. ABDOMEN: Soft, nontender. EXTREMITITES: No edema. Objective - Vital Signs Vital signs: Vital Signs Temp 98 F 10/11/20 08:00 Pulse 82 10/11/20 09:20 Resp 16 10/11/20 08:00 BP 134/78 10/11/20 08:00 Pulse Ox 94 L 10/11/20 08:00 Intake & Output 10/10/20 10/11/20 10/11/20 18:59 06:59 18:59 Intake Total 716 240 Output Total 2100 Balance -1384 240 Weight 66.4 kg 67.4 kg Intake: Oral 716 240 Output: Urine 2100 Other: Voiding Method Toilet Urinal # Voids 1 1 200 # Bowel Movements 0 - Labs CBC & Chem 7: 10/09/20 07:06 10/11/20 08:03 Labs: Abnormal Lab Results - Last 24 Hours (Table) 10/10/20 10/10/20 10/10/20 Range/Units 11:44 16:51 20:11 Sodium (137-145) mmol/L Carbon Dioxide (22-30) mmol/L BUN (9-20) mg/dL Creatinine (0.66-1.25) mg/dL Glucose (74-99) mg/dL POC Glucose (mg/dL) 172 H 116 H 209 H (75-99) mg/dL 10/11/20 10/11/20 10/11/20 Range/Units 06:03 07:10 08:03 Sodium 134 L (137-145) mmol/L Carbon Dioxide 17 L (22-30) mmol/L BUN 90 H (9-20) mg/dL Creatinine 3.55 H (0.66-1.25) mg/dL Glucose 139 H (74-99) mg/dL POC Glucose (mg/dL) 118 H 110 H (75-99) mg/dL Assessment and Plan Plan: Assessment: 1. Acute allograft dysfunction mostly prerenal secondary to cardiorenal syndro me. Creatinine 3.55 today. No hydronephrosis noted. 2. 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 Biopsy done in 2019 revealed no evidence of rejection. 3. Status post living unrelated kidney transplant in June 2016 with [facility]. Maintained on tacrolimus and everolimus. 4. Volume overload. Improved with diuresis. 5. Acute on chronic systolic CHF with ejection fraction of 45-50% with mild to moderate tricuspid regurgitation and moderate pulmonary hypertension. 6. Metabolic acidosis secondary to acute kidney injury maintained on oral bicarb. 7. Anemia of chronic kidney disease. Iron replete. 8. Diabetes mellitus. 9. History of bilateral nephrectomies. Plan: Maintain Demadex 20 mg once daily. Maintain home antirejection medications. Follow-up prograf level. Avoid nephrotoxins. Add Aranesp. Continue to monitor renal function and urine output. Patient was advised to monitor his weight closely at home and to call if gains more than 3 pounds in 1 week duration. Repeat BMP and magnesium level 2-3 days postdischarge. Follow up outpatient in 1 week.
[2020-10-11] MEDS ORDERED: DARBEPOETIN ALFA 40 MCG/0.4 ML SYRINGE SQ SCH (12:00)
[2020-10-11 12:07] LABS: Glucose,Whole Blood 155 mg/dL (75-99)
--- NOTE | 2020-10-11 14:18 | P.PN ---
Subjective Progress Note Date: 10/11/20 HISTORY OF PRESENT ILLNESS: 10/10/2020 This is a 74-year-old male with a past medical history significant for atrial fibrillation, coronary artery disease with previous CABG and subsequent PCI, hypertension, hyperlipidemia, chronic kidney disease with previous transplant 2, and diabetes mellitus. Patient follows in the office with Dr. El. We have been asked to see the patient in consultation for CHF. Patient examined at the bedside. Patient states he has been feeling short of breath for approximately 3 months. He states his shortness of breath is only with exertion. 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 Patient presented to the emergency room for further evaluation. Patient was started on IV Lasix yesterday. Patient states his shortness of breath has improved. He currently denies chest pain or pressure. Denies dizziness or lightheadedness. EKG reveals sinus mechanism. Right bundle branch block. T-wave inversions in inferior leads. Chest xray coarsened interstitium correlate for mild venous congestion or interstitial pneumonitis Laboratory data: WBC 3.1. Hemoglobin 9.3. Platelet count 157. Sodium 133. Potassium 4.9. BUN 87. Creatinine 3.69. Troponin negative 1. BNP 20,300. Current home cardiac medications include hydralazine 50 mg in the morning and 25 mg at night, atenolol 50 mg daily, Lasix 40 mg daily, Lipitor 40 mg daily, aspirin 81 mg daily, and Eliquis 5 mg twice a day Echocardiogram completed revealed ejection fraction 45-50%, mild to moderate tricuspid regurgitation, mild aortic regurgitation, and moderate pulmonary hypertension Cardiac catheterization history: [address] El. Patient underwent PCI of proximal segment of SVG to PLV 10/11/2020 Patient examined this morning at the bedside. He denies chest pain or pressure. He denies shortness of breath. He is on room air with oxygen saturations greater then 92%. Vital signs are stable. Patient is hoping to be discharged home today. PHYSICAL EXAM: VITAL SIGNS: Reviewed. GENERAL: Well-developed in no acute distress. HEENT: Head is normocephalic. Pupils are equal, round. Sclerae anicteric. Mucous membranes of the mouth are moist. Neck supple. No JVD or thyromegaly LUNGS: Respirations even and unlabored. Lungs essentially clear to auscultation bilaterally. HEART: Regular rate and rhythm. S1 and S2 heard. ABDOMEN: Soft. Nondistended. Nontender. EXTREMITIES: Normal range of motion. No clubbing or cyanosis. Peripheral pulses intact. No lower extremity edema NEUROLOGIC: Awake and alert. Oriented x 3. ASSESSMENT: Shortness of breath 3 months Possible mild acute exacerbation of chronic diastolic heart failure, Ef 45-50%, BNP 20,330, clinically does not appear to be in heart failure Coronary artery disease with previous CABG 2012, and PCI to proximal segment of SVG to PLV, 2014 Paroxysmal atrial fibrillation, on anticoagulation with Eliquis Hypertension Hyperlipidemia Diabetes mellitus Acute on chronic kidney disease History of kidney transplant 2 PLAN: Continue current cardiac medications Continue Eliquis for anticoagulation Patient is stable for discharge home today from a cardiac standpoint We will sign off. Please reconsult if needed. Nurse practitioner note has been reviewed by physician. Signing provider agrees with the documented findings, assessment, and plan of care. Objective - Vital Signs Vital signs: Vital Signs Temp 98 F 10/11/20 08:00 Pulse 55 L 10/11/20 12:19 Resp 16 10/11/20 08:00 BP 134/78 10/11/20 08:00 Pulse Ox 94 L 10/11/20 08:00 Intake & Output 10/10/20 10/11/20 10/11/20 18:59 06:59 18:59 Intake Total 716 240 Output Total 2100 Balance -1384 240 Weight 66.4 kg 67.4 kg Intake: Oral 716 240 Output: Urine 2100 Other: Voiding Method Toilet Toilet Urinal Urinal # Voids 1 1 200 # Bowel Movements 0 - Labs CBC & Chem 7: 10/09/20 07:06 10/11/20 08:03 Labs: Abnormal Lab Results - Last 24 Hours (Table) 10/10/20 10/10/20 10/10/20 Range/Units 07:29 16:51 20:11 Sodium (137-145) mmol/L Carbon Dioxide (22-30) mmol/L BUN (9-20) mg/dL Creatinine (0.66-1.25) mg/dL Glucose (74-99) mg/dL POC Glucose (mg/dL) 116 H 209 H (75-99) mg/dL Tacrolimus 4.6 L (5.0-20.0) ng/mL 10/11/20 10/11/20 10/11/20 Range/Units 06:03 07:10 08:03 Sodium 134 L (137-145) mmol/L Carbon Dioxide 17 L (22-30) mmol/L BUN 90 H (9-20) mg/dL Creatinine 3.55 H (0.66-1.25) mg/dL Glucose 139 H (74-99) mg/dL POC Glucose (mg/dL) 118 H 110 H (75-99) mg/dL Tacrolimus (5.0-20.0) ng/mL 10/11/20 Range/Units 12:06 Sodium (137-145) mmol/L Carbon Dioxide (22-30) mmol/L BUN (9-20) mg/dL Creatinine (0.66-1.25) mg/dL Glucose (74-99) mg/dL POC Glucose (mg/dL) 155 H (75-99) mg/dL Tacrolimus (5.0-20.0) ng/mL
[2020-10-11 15:41] VITALS: BP 140/67; PULSE 60
--- NOTE | 2020-10-11 17:04 | P.DS ---
Providers Date of admission: 10/09/20 08:57 Expected date of discharge: 10/11/20 Attending physician: Landon Strickland Consults: 10/09/20 08:57 Consult Physician Routine Consulting Provider: Maxwell Herrera Consult Reason/Comments: Acute on chronic renal failure Do you want consulting provider notified?: Yes Consult Physician Routine Consulting Provider: Blayne Chávez Consult Reason/Comments: chf Do you want consulting provider notified?: Yes Primary care physician: Aiyana De Los Santos Hospital Course: Final diagnosis -Chronic cough with progressive shortness of breath: Patient probably has CHF exacerbation -Acute renal failure on chronic kidney disease stage V acute renal failure secondary to prerenal azotemia may be hypervolemic state of congestive heart failure -Congestive heart failure chronic systolic is less than rest or dysfunction with acute exacerbation -Post renal transplant -Hyperkalemia secondary to renal failure -Coronary artery disease -Type 2 diabetes mellitus -Hypertension -Hyperlipidemia -Coronary artery disease with stents in the past -DVT prophylaxis Discharge disposition Patient is being discharged in a stable condition with guarded prognosis to home. Patient will follow-up with Dr. Aiyana De Los Santos in the outpatient setting upon discharge. Patient is to follow up with nephrology. Total time taken is greater than 35 minutes. Hospital course 70-year-old pleasant male came in with chief complaints of chronic cough and some shortness of breath, question will orthopnea. Patient denied any fever chills patient denied any nausea vomiting. Patient denied any gastroesophageal reflux disease symptoms, patient denied any history of for COPD or asthma. Patient mostly has dry cough he denied any smoking history. Patient had a chest x-ray which showed pulmonary vascular congestion, was unable to appreciate JVD but does have highly elevated BNP of around 20,000. Patient appeared to be in heart failure will be started on Lasix. She and creatinine is presently 3.57 patient previous creatinine was around 2.2 during his previous hospitalization patient had renal transplant twice in the past. Patient received 2 courses of antibiotics believing that patient may have bronchitis which didn't improve his symptoms patient denied any predominant gastroesophageal reflux disease symptoms. Patient doesn't appear to have pharyngitis 10/10/2020 Patient is seen and evaluated in follow-up with no acute overnight issues. Patient states his shortness of breath has improved and was maintained on IV Lasix. Nephrology following and current creatinine today is 3.69. Patient has diuresed well and will transition to oral Demadex 20 mg daily. Patient does follow closely with nephrology in the outpatient setting and home medications have been resumed. Cardiology also following. 10/11/2020 Patient is seen this morning stating he is feeling much better and has been transitioned to oral Demadex and will continue. Nephrology following closely and creatinine slightly improved patient will follow-up outpatient and have repeat labs. Patient also instructed to follow-up with cardiology outpatient. Patient is requesting to go home. Currently no reports of chest pain, shortness of breath, or palpitations. Patient is afebrile. No reports of nausea or vomiting and patient is tolerating diet. Patient will be going to [facility] today. On exam vital signs are stable. Cardio S1, S2 are muffled. Respiratory system shows diminished breath sounds at the bases with no wheezing or rhonchi noted. Abdomen is soft and nontender. Nervous system shows no focal deficits. Please refer to medication reconciliation sheet for a list of medications. Patient Condition at Discharge: Fair Plan - Discharge Summary Discharge Rx Participant: No New Discharge Prescriptions: New Darbepoetin Pratik [Aranesp] 40 mcg SQ Q7D syringe Torsemide [Demadex] 20 mg PO DAILY 30 Days #30 tab Apixaban [Eliquis] 2.5 mg PO BID@0900,2100 30 Days #60 tablet Famotidine [Pepcid] 20 mg PO BID #60 tablet Budesonide/Formoterol Fumarate [Symbicort 160-4.5 Mcg Inhaler] 1 puff IH BID 30 Days #1 hfa.aer.ad guaiFENesin SYRUP 100MG/5ML [Robitussin] 10 mg PO Q8H #100 ml Continue Ergocalciferol [Vitamin D2 (DRISDOL)] 50,000 unit PO Q30D atenoloL [Tenormin] 50 mg PO HS@2100 Aspirin EC [Ecotrin Low Dose] 81 mg PO DAILY@0900 Tacrolimus [Prograf] 2 mg PO DAILY@0900 Insulin NPH Human Isophane [NovoLIN N] 30 unit SQ AC-BRKFST Insulin NPH Human Isophane [NovoLIN N] 10 unit SQ AC-SUPPER Nitroglycerin Sl Tabs [Nitrostat] 0.4 mg SL Q5M PRN PRN Reason: Chest Pain Ferrous Sulfate [Iron (65 MG Elemental)] 65 mg PO DAILY@0900 Multivitamins, Thera [Multivitamin (formulary)] 1 tab PO DAILY@09 Everolimus 2.25 mg PO BID@899,2099 Atorvastatin [Lipitor] 40 mg PO DAILY@0900 Amoxicillin 500 mg PO BID@899,2099 Sodium Bicarbonate Tab 1,300 mg PO DAILY@0900 hydrALAZINE HCL [Apresoline] 50 mg PO DAILY@0900 hydrALAZINE HCL [Apresoline] 25 mg PO HS@2099 Tacrolimus [Prograf] 1 mg PO HS@2100 Fluticasone/Umeclidin/Vilanter [Trelegy Ellipta 100-62.5-25] 1 puff INHALATION RT-DAILY Discontinued Apixaban [Eliquis] 5 mg PO BID@899,2099 Furosemide [Lasix] 40 mg PO DAILY@09 Benzonatate [Tessalon Perles] 100 - 200 mg PO TID PRN PRN Reason: Cough Discharge Medication List Ergocalciferol [Vitamin D2 (DRISDOL)] 50,000 unit PO Q30D 01/12/15 [History] atenoloL [Tenormin] 50 mg PO HS@209901/12/15 [History] Aspirin EC [Ecotrin Low Dose] 81 mg PO DAILY@89907/31/16 [History] Insulin NPH Human Isophane [NovoLIN N] 10 unit SQ AC-SUPPER 07/31/16 [History] Insulin NPH Human Isophane [NovoLIN N] 30 unit SQ AC-BRKFST 07/31/16 [History] Tacrolimus [Prograf] 2 mg PO DAILY@0900 07/31/16 [History] Everolimus 2.25 mg PO BID@0900,209902/27/20 [History] Ferrous Sulfate [Iron (65 MG Elemental)] 65 mg PO DAILY@0900 02/27/20 [History] Multivitamins, Thera [Multivitamin (formulary)] 1 tab PO DAILY@00 02/27/20 [History] Nitroglycerin Sl Tabs [Nitrostat] 0.4 mg SL Q5M PRN 02/27/20 [History] Atorvastatin [Lipitor] 40 mg PO DAILY@0900 07/16/20 [History] Amoxicillin 500 mg PO BID@0900,209910/09/20 [History] Fluticasone/Umeclidin/Vilanter [Trelegy Ellipta 100-62.5-25] 1 puff INHALATION RT-DAILY 10/09/20 [History] Sodium Bicarbonate Tab 1,300 mg PO DAILY@89910/09/20 [History] Tacrolimus [Prograf] 1 mg PO HS@209910/09/20 [History] hydrALAZINE HCL [Apresoline] 25 mg PO HS@209910/09/20 [History] hydrALAZINE HCL [Apresoline] 50 mg PO DAILY@89910/09/20 [History] Apixaban [Eliquis] 2.5 mg PO BID@899,2099 30 Days #60 tablet 10/11/20 [Rx] Budesonide/Formoterol Fumarate [Symbicort 160-4.5 Mcg Inhaler] 1 puff IH BID 30 Days #1 hfa.aer.ad 10/11/20 [Rx] Darbepoetin Pratik [Aranesp] 40 mcg SQ Q7D syringe 10/11/20 [Rx] Famotidine [Pepcid] 20 mg PO BID #60 tablet 10/11/20 [Rx] Torsemide [Demadex] 20 mg PO DAILY 30 Days #30 tab 10/11/20 [Rx] guaiFENesin SYRUP 100MG/5ML [Robitussin] 10 mg PO Q8H #100 ml 10/11/20 [Rx] Follow up Appointment(s)/Referral(s): Aiyana De Los Santos DO [Primary Care Provider] - 10/15/20 2:00 pm Maxwell Herrera DO [STAFF PHYSICIAN] - 1 Week (Message left with office. They will call you with appointment date and time.) Ambulatory/Diagnostic Orders: Basic Metabolic Panel [LAB.AMB] Time Frame: 2 Days, Location: None Selected Magnesium [LAB.AMB] Time Frame: 2 Days, Location: None Selected Patient Instructions/Handouts: Heart Failure (ER), Heart Failure (DC) Activity/Diet/Wound Care/Special Instructions: Activity Limited until follow-up Continue with renal diet consistent carb Follow-up with primary care provider upon discharge Follow-up with nephrology in one week Repeat labs in 2-3 days Discharge Disposition: HOME SELF-CARE
== END 2020-10-11 15:10 | disposition home or self-care (01) | DRG 291 ==
LOC: EC 06:36 → 3SCARD 08:57
PROVIDERS: ADMIT Hospitalist; ATTEND Hospitalist
DX: I13.2 Hypertensive heart and chronic kidney disease with heart failure and with stage 5 chronic kidney disease, or end stage renal disease (principal); I50.23 Acute on chronic systolic (congestive) heart failure; Q61.3 Polycystic kidney, unspecified; N17.9 Acute kidney failure, unspecified; E87.2 Acidosis; N18.5 Chronic kidney disease, stage 5; T86.19 Other complication of kidney transplant; I27.20 Pulmonary hypertension, unspecified; D63.1 Anemia in chronic kidney disease; E11.40 Type 2 diabetes mellitus with diabetic neuropathy, unspecified; E11.22 Type 2 diabetes mellitus with diabetic chronic kidney disease; I48.0 Paroxysmal atrial fibrillation; Z79.4 Long term (current) use of insulin; Z20.822 Contact with and (suspected) exposure to COVID-19; E87.5 Hyperkalemia; I07.1 Rheumatic tricuspid insufficiency; E61.1 Iron deficiency; I45.10 Unspecified right bundle-branch block; I25.10 Atherosclerotic heart disease of native coronary artery without angina pectoris; E78.5 Hyperlipidemia, unspecified; G43.909 Migraine, unspecified, not intractable, without status migrainosus; I25.2 Old myocardial infarction; K40.90 Unilateral inguinal hernia, without obstruction or gangrene, not specified as recurrent; K42.9 Umbilical hernia without obstruction or gangrene; Z95.1 Presence of aortocoronary bypass graft; Z79.01 Long term (current) use of anticoagulants; Z79.82 Long term (current) use of aspirin; Z79.51 Long term (current) use of inhaled steroids; Z79.899 Other long term (current) drug therapy; Z90.5 Acquired absence of kidney; Z95.5 Presence of coronary angioplasty implant and graft; Y83.0 Surgical operation with transplant of whole organ as the cause of abnormal reaction of the patient, or of later complication, without mention of misadventure at the time of the procedure; Z80.1 Family history of malignant neoplasm of trachea, bronchus and lung; Z82.71 Family history of polycystic kidney
CPT/HCPCS: 36415; 71046; 76770; 80048; 80053; 80197; 82728; 83540; 83550; 83605; 83735; 83880; 84100; 84484; 85025; 85610; 85730; 87635; 93005; 93306; 94640; 96374; 99285

== ENCOUNTER 2020-12-19 10:33 | Inpatient (IN) | payer MEDICARE ==
[2020-12-19] MEDS ORDERED: ACETAMINOPHEN TAB 500 MG TAB PO STA (10:56)
--- NOTE | 2020-12-19 11:26 | ED ---
General Adult HPI - General Source: EMS Mode of arrival: EMS Limitations: no limitations <Tito Cortes - Last Filed: 12/19/20 13:58> <Jay Edward - Last Filed: 12/21/20 15:31> - General Chief complaint: Fever Stated complaint: weakness Time Seen by Provider: 12/19/20 10:38 - History of Present Illness Initial comments: 75-year-old male with a past medical history of CKD with dialysis and a renal transplant, anemia, atrial fibrillation, CAD, diabetes mellitus, hyperlipidemia, hypertension, [place] presents to the emergency room for a chief complaint of weakness. Patient has felt weak for the past couple days. Patient is noted to have a fever upon arrival of 101.7. Patient denies any symptoms associated with this aside from weakness. Denies cough, sore throat, nausea, vomiting, diarrhea, abdominal pain, chest pain, or shortness of breath.Patient has no other complaints at this time including shortness of breath, chest pain, abdominal pain, nausea or vomiting, headache, or visual changes. (Tito Cortes) - Related Data Home Medications Medication Instructions Recorded Confirmed Ergocalciferol [Vitamin D2 1,250 mcg PO Q30D 01/12/15 12/19/20 (DRISDOL)] atenoloL [Tenormin] 25 mg PO HS 01/12/15 12/19/20 Aspirin EC [Ecotrin Low Dose] 81 mg PO DAILY 07/31/16 12/19/20 Insulin NPH Human Isophane 10 unit SQ AC-SUPPER 07/31/16 12/19/20 [NovoLIN N] Insulin NPH Human Isophane 26 unit SQ AC-BRKFST 07/31/16 12/19/20 [NovoLIN N] Ferrous Sulfate [Iron (65 MG 65 mg PO DAILY 02/27/20 12/19/20 Elemental)] Multivitamins, Thera [Multivitamin 1 tab PO DAILY 02/27/20 12/19/20 (formulary)] Nitroglycerin Sl Tabs [Nitrostat] 0.4 mg SL Q5M PRN 02/27/20 12/19/20 Atorvastatin [Lipitor] 40 mg PO DAILY 07/16/20 12/19/20 Apixaban [Eliquis] 2.5 mg PO BID 12/19/20 12/19/20 Budesonide/Formoterol Fumarate 1 puff INHALATION RT-BID 12/19/20 12/19/20 [Symbicort 160-4.5 Mcg Inhaler] Midodrine HCl [ProAmatine] 10 mg PO TUTHSA@06,09,21 12/19/20 12/19/20 Renavite 1 tab PO HS 12/19/20 12/19/20 Tacrolimus [Prograf] 0.5 mg PO DAILY 12/19/20 12/19/20 Voriconazole [Vfend] 200 mg PO Q12H 12/19/20 12/19/20 Previous Rx's Medication Instructions Recorded Famotidine [Pepcid] 20 mg PO BID #60 tablet 10/11/20 Allergies Allergy/AdvReac Type Severity Reaction Status Date / Time No Known Allergies Allergy Verified 12/19/20 11:42 Review of Systems ROS Other: All systems not noted in ROS Statement are negative. <Tito Cortes P - Last Filed: 12/19/20 13:58> ROS Other: All systems not noted in ROS Statement are negative. <Jay Edward - Last Filed: 12/21/20 15:31> ROS Statement: Those systems with pertinent positive or pertinent negative responses have been documented in the HPI. Past Medical History Past Medical History: Atrial Fibrillation, Coronary Artery Disease (CAD), Chest Pain / Angina, Diabetes Mellitus, Hyperlipidemia, Hypertension, Myocardial Infarction (TX), Renal Disease Additional Past Medical History / Comment(s): Abdominal pain since coughing so much past few weeks, ischemic heart disease, IDDM type II, neuropathy bilateral feet, CKD stage III/polycystic kidney disease/had L renal transplant in 2002 (no longer functions and a r kidney transplant in 2015 that does function), immunocompromised, anemia, hypoalbuminemia, L leg edema (donor site from L leg), L inguinal and umbilical hernias. Last Myocardial Infarction Date:: 2014 History of Any Multi-Drug Resistant Organisms: None Reported Past Surgical History: Coronary Bypass/CABG, Heart Catheterization With Stent Additional Past Surgical History / Comment(s): Bilateral nephrectomies, renal biopsies, 2002 L kidney transplant, 2016 R kidney transplant, 2013 CABG 4 ve ssel, PCI with stents in 2011 and 2014, colonoscopy/benign polypectomy Past Anesthesia/Blood Transfusion Reactions: No Reported Reaction Additional Past Anesthesia/Blood Transfusion Reaction / Comment(s): Pt received blood in 2002 with no reaction. Date of Last Stent Placement:: 2014 Past Psychological History: No Psychological Hx Reported Smoking Status: Never smoker Past Alcohol Use History: None Reported Past Drug Use History: None Reported - Past Family History Brother(s) Family Medical History: Renal Disease Additional Family Medical History / Comment(s): Polycystic kidney disease Sister(s) Family Medical History: Renal Disease Additional Family Medical History / Comment(s): Polycystic kidney disease. Father Family Medical History: Cancer Additional Family Medical History / Comment(s): LUNG CANCER Mother Family Medical History: Renal Disease Additional Family Medical History / Comment(s): POLYCYSTIC KIDNEY DISEASE <Tito Cortes P - Last Filed: 12/19/20 13:58> General Exam Limitations: no limitations General appearance: alert, in no apparent distress Head exam: Present: atraumatic, normocephalic, normal inspection Eye exam: Present: normal appearance, PERRL, EOMI. Absent: scleral icterus, conjunctival injection, periorbital swelling ENT exam: Present: normal exam, mucous membranes moist Neck exam: Present: normal inspection, full ROM. Absent: tenderness, m eningismus, lymphadenopathy Respiratory exam: Present: normal lung sounds bilaterally. Absent: respiratory distress, wheezes, rales, rhonchi, stridor Cardiovascular Exam: Present: regular rate, normal rhythm, normal heart sounds. Absent: systolic murmur, diastolic murmur, rubs, gallop, clicks GI/Abdominal exam: Present: soft, normal bowel sounds. Absent: distended, tenderness, guarding, rebound, rigid Neurological exam: Present: alert <Tito Cortes P - Last Filed: 12/19/20 13:58> Course Vital Signs 12/19/20 12/19/20 12/19/20 10:34 11:56 12:00 Temperature 101.7 F H 98.8 F Pulse Rate 74 144 H 146 H Respiratory 18 18 18 Rate Blood Pressure 105/80 97/76 74/60 O2 Sat by Pulse 94 L 94 L 93 L Oximetry 12/19/20 12/19/20 12/19/20 12:20 12:30 12:45 Temperature Pulse Rate 125 H 122 H 126 H Respiratory 20 20 20 Rate Blood Pressure 92/64 84/68 86/51 O2 Sat by Pulse 92 L 92 L 96 Oximetry 12/19/20 12/19/20 12/19/20 13:00 13:30 13:45 Temperature Pulse Rate 126 H 144 H 151 H Respiratory 20 22 22 Rate Blood Pressure 94/64 117/76 99/89 O2 Sat by Pulse 94 L 94 L 95 Oximetry 12/19/20 12/19/20 12/19/20 14:19 14:39 14:42 Temperature Pulse Rate 148 H 123 H Respiratory 24 26 H Rate Blood Pressure 104/47 63/51 104/68 O2 Sat by Pulse 93 L 90 L Oximetry 12/19/20 12/19/20 12/19/20 14:45 15:20 16:00 Temperature Pulse Rate 131 H 149 H 138 H Respiratory 30 H 32 H 32 H Rate Blood Pressure 108/89 100/77 89/60 O2 Sat by Pulse 89 L 89 L Oximetry 12/19/20 12/19/20 12/19/20 16:15 16:45 17:00 Temperature Pulse Rate 141 H 138 H 151 H Respiratory 32 H 34 H 34 H Rate Blood Pressure 90/72 81/45 100/68 O2 Sat by Pulse 92 L Oximetry 12/19/20 17:26 Temperature 98.6 F Pulse Rate 137 H Respiratory 34 H Rate Blood Pressure 92/64 O2 Sat by Pulse Oximetry EKG Findings - EKG Comments: EKG Findings:: A. fib RVR, ventricular rate 144, QRS 138, QTC 424 <Tito Cortes P - Last Filed: 12/19/20 13:58> Medical Decision Making - Lab Data Result diagrams: 12/19/20 11:00 12/19/20 11:00 <Tito Cortes P - Last Filed: 12/19/20 13:58> - Lab Data Result diagrams: 12/19/20 21:20 12/19/20 21:20 <Jay Edward - Last Filed: 12/21/20 15:31> - Medical Decision Making 75-year-old male with a past medical history of atrial fibrillation on Eliquis, CAD, diabetes mellitus, hyperlipidemia, hypertension, [place], renal dialysis with last treatment yesterday presents for weakness. Patient found to be febrile upon arrival with a temperature of 101.7. Blood pressure was initially 105/80 with a heart rate of 74. However on repeat vitals heart rate is elevated and EKG is consistent with atrial fibrillation. Blood pressure is borderline, at one point in the 70s. reports that this is fairly normal for patient after receiving his dialysis the day before. Dr. Edward and myself evaluated patient. He did not have any symptoms at that time and felt well, was stable. We started him on a liter of fluids and Tylenol to control the fever. This did help with his blood pressure. Patient was also given Midodrin as he usually takes this at home. CBC unremarkable. CMP is reflective of chronic renal disease. Glucose of 42 noted, this was addressed with an amp of dextrose. Troponin of 0.042 likely secondary to chronic kidney disease. Patient continued to have a blood pressure in the low 100s with tachycardia of 140s on average. He was started on amiodarone. Dr. Edward discussed this case with Dr. Gonzalez who does want him admitted to the ICU. We will consult nephrology, cardiology, and infectious disease given patient's fever. Case discussed with izabela who accepted patient. (Tito Cortes) PA attestation: I, Dr. Jay Edward, personally saw and examined the patient. I have reviewed and agree with the resident/PA findings, including all diagnostic interpretations and treatment plans as written unless otherwise stated. I was present for the gonzalez portions of any procedures performed and inclusive time noted for any critical care statement. I did assist with patient care. Briefly, patient is 75-year-old male with past medical history of end-stage renal disease. He was told to come to the emergency department for hypertension. Patient denies any localizing symptoms at this time. Denies any constitutional symptoms. He has no pain. He states repeatedly that he feels fine and that he feels normal. reports that patient typically has hypotension post dialysis. She noted that his blood pressure did not improve which he typically does with dose of midodrine. On arrival patient was febrile. He was well-appearing and did not have any complaints however he was hypotensive. Patient clinical presentation concerning for sepsis likely bacteremia given that he is a dialysis patient. Patient had A. fib RVR here he states he does have a history of A. fib and takes medicines for it. Patient is given broad-spectrum antibiotics for concerns of serious bacterial illness. Case is discussed with industrial recruiter who is willing to accept patients care. Patient was given fluids gently given that he has a history of dialysis in order to avoid fluid overload. Case is discussed with industrial recruiter who is willing to accept patients care. After initial fluid bolus patient's blood pressure improved significantly. Patient be admitted to intensive care unit for medical monitoring. (Jay Edward) - Lab Data Lab Results 12/19/20 12/19/20 12/19/20 Range/Units 11:00 11:00 11:00 WBC 2.0 L (3.8-10.6) k/uL RBC 4.16 L (4.30-5.90) m/uL Hgb 11.9 L (13.0-17.5) gm/dL Hct 38.2 L (39.0-53.0) % MCV 91.9 (80.0-100.0) fL MCH 28.6 (25.0-35.0) pg MCHC 31.1 (31.0-37.0) g/dL RDW 23.3 H (11.5-15.5) % Plt Count 302 (150-450) k/uL MPV 9.2 Neutrophils % Not Reportable Neutrophils % (Manual) 65 % Band Neuts % (Manual) 10 % Lymphocytes % Not Reportable Lymphocytes % (Manual) 15 % Monocytes % Not Reportable Monocytes % (Manual) 7 % Eosinophils % Not Reportable Eosinophils % (Manual) 1 % Basophils % Not Reportable Metamyelocytes % 2 % Neutrophils # Not Reportable Neutrophils # (Manual) 1.50 (1.3-7.7) k/uL Lymphocytes # Not Reportable Lymphocytes # (Manual) 0.30 L (1.0-4.8) k/uL Monocytes # Not Reportable Monocytes # (Manual) 0.14 (0-1.0) k/uL Eosinophils # Not Reportable Eosinophils # (Manual) 0.02 (0-0.7) k/uL Basophils # Not Reportable Metamyelocytes # (Man) 0.04 H (0) k/uL Nucleated RBCs 0 (0-0) /100 WBC Manual Slide Review Performed Dimorphic RBCs Present Polychromasia Present Hypochromasia Moderate Poikilocytosis Slight Anisocytosis Moderate Microcytosis Slight Macrocytosis Slight Tear Drop Cells Present Fragmented RBCs Present PT 17.7 H (9.0-12.0) sec INR 1.8 H (<1.2) APTT 26.3 (22.0-30.0) sec Sodium 131 L (137-145) mmol/L Potassium 3.5 (3.5-5.1) mmol/L Chloride 95 L (98-107) mmol/L Carbon Dioxide 26 (22-30) mmol/L Anion Gap 10 mmol/L BUN 68 H (9-20) mg/dL Creatinine 2.96 H (0.66-1.25) mg/dL Est GFR (CKD-EPI)AfAm 23 (>60 ml/min/1.73 sqM) Est GFR (CKD-EPI)NonAf 20 (>60 ml/min/1.73 sqM) Glucose 42 L* (74-99) mg/dL POC Glucose (mg/dL) (75-99) mg/dL POC Glu Film Coater ID Plasma Lactic Acid Roque (0.7-2.0) mmol/L Calcium 8.7 (8.4-10.2) mg/dL Total Bilirubin 0.5 (0.2-1.3) mg/dL AST 51 (17-59) U/L ALT 37 (4-49) U/L Alkaline Phosphatase 337 H (38-126) U/L Troponin I (0.000-0.034) ng/mL Total Protein 5.7 L (6.3-8.2) g/dL Albumin 2.8 L (3.5-5.0) g/dL Influenza Type A (PCR) (Not Detectd) Influenza Type B (PCR) (Not Detectd) RSV (PCR) (Not Detectd) SARS-CoV-2 (PCR) (Not Detectd) 12/19/20 12/19/20 12/19/20 Range/Units 11:00 11:00 11:20 WBC (3.8-10.6) k/uL RBC (4.30-5.90) m/uL Hgb (13.0-17.5) gm/dL Hct (39.0-53.0) % MCV (80.0-100.0) fL MCH (25.0-35.0) pg MCHC (31.0-37.0) g/dL RDW (11.5-15.5) % Plt Count (150-450) k/uL MPV Neutrophils % Neutrophils % (Manual) % Band Neuts % (Manual) % Lymphocytes % Lymphocytes % (Manual) % Monocytes % Monocytes % (Manual) % Eosinophils % Eosinophils % (Manual) % Basophils % Metamyelocytes % % Neutrophils # Neutrophils # (Manual) (1.3-7.7) k/uL Lymphocytes # Lymphocytes # (Manual) (1.0-4.8) k/uL Monocytes # Monocytes # (Manual) (0-1.0) k/uL Eosinophils # Eosinophils # (Manual) (0-0.7) k/uL Basophils # Metamyelocytes # (Man) (0) k/uL Nucleated RBCs (0-0) /100 WBC Manual Slide Review Dimorphic RBCs Polychromasia Hypochromasia Poikilocytosis Anisocytosis Microcytosis Macrocytosis Tear Drop Cells Fragmented RBCs PT (9.0-12.0) sec INR (<1.2) APTT (22.0-30.0) sec Sodium (137-145) mmol/L Potassium (3.5-5.1) mmol/L Chloride (98-107) mmol/L Carbon Dioxide (22-30) mmol/L Anion Gap mmol/L BUN (9-20) mg/dL Creatinine (0.66-1.25) mg/dL Est GFR (CKD-EPI)AfAm (>60 ml/min/1.73 sqM) Est GFR (CKD-EPI)NonAf (>60 ml/min/1.73 sqM) Glucose (74-99) mg/dL POC Glucose (mg/dL) (75-99) mg/dL POC Glu Film Coater ID Plasma Lactic Acid Roque 2.0 (0.7-2.0) mmol/L Calcium (8.4-10.2) mg/dL Total Bilirubin (0.2-1.3) mg/dL AST (17-59) U/L ALT (4-49) U/L Alkaline Phosphatase (38-126) U/L Troponin I 0.042 H* (0.000-0.034) ng/mL Total Protein (6.3-8.2) g/dL Albumin (3.5-5.0) g/dL Influenza Type A (PCR) Not Detected (Not Detectd) Influenza Type B (PCR) Not Detected (Not Detectd) RSV (PCR) Not Detected (Not Detectd) SARS-CoV-2 (PCR) Not Detected (Not Detectd) 12/19/20 Range/Units 12:14 WBC (3.8-10.6) k/uL RBC (4.30-5.90) m/uL Hgb (13.0-17.5) gm/dL Hct (39.0-53.0) % MCV (80.0-100.0) fL MCH (25.0-35.0) pg MCHC (31.0-37.0) g/dL RDW (11.5-15.5) % Plt Count (150-450) k/uL MPV Neutrophils % Neutrophils % (Manual) % Band Neuts % (Manual) % Lymphocytes % Lymphocytes % (Manual) % Monocytes % Monocytes % (Manual) % Eosinophils % Eosinophils % (Manual) % Basophils % Metamyelocytes % % Neutrophils # Neutrophils # (Manual) (1.3-7.7) k/uL Lymphocytes # Lymphocytes # (Manual) (1.0-4.8) k/uL Monocytes # Monocytes # (Manual) (0-1.0) k/uL Eosinophils # Eosinophils # (Manual) (0-0.7) k/uL Basophils # Metamyelocytes # (Man) (0) k/uL Nucleated RBCs (0-0) /100 WBC Manual Slide Review Dimorphic RBCs Polychromasia Hypochromasia Poikilocytosis Anisocytosis Microcytosis Macrocytosis Tear Drop Cells Fragmented RBCs PT (9.0-12.0) sec INR (<1.2) APTT (22.0-30.0) sec Sodium (137-145) mmol/L Potassium (3.5-5.1) mmol/L Chloride (98-107) mmol/L Carbon Dioxide (22-30) mmol/L Anion Gap mmol/L BUN (9-20) mg/dL Creatinine (0.66-1.25) mg/dL Est GFR (CKD-EPI)AfAm (>60 ml/min/1.73 sqM) Est GFR (CKD-EPI)NonAf (>60 ml/min/1.73 sqM) Glucose (74-99) mg/dL POC Glucose (mg/dL) 141 H (75-99) mg/dL POC Glu Film Coater Therese Kathleen Plasma Lactic Acid Roque (0.7-2.0) mmol/L Calcium (8.4-10.2) mg/dL Total Bilirubin (0.2-1.3) mg/dL AST (17-59) U/L ALT (4-49) U/L Alkaline Phosphatase (38-126) U/L Troponin I (0.000-0.034) ng/mL Total Protein (6.3-8.2) g/dL Albumin (3.5-5.0) g/dL Influenza Type A (PCR) (Not Detectd) Influenza Type B (PCR) (Not Detectd) RSV (PCR) (Not Detectd) SARS-CoV-2 (PCR) (Not Detectd) Critical Care Time Critical Care Time: Yes Total Critical Care Time: 33 <Jay Edward - Last Filed: 12/21/20 15:31> Disposition Is patient prescribed a controlled substance at d/c from ED?: No Time of Disposition: 13:59 <Tito Cortes P - Last Filed: 12/19/20 13:58> <Jay Edward - Last Filed: 12/21/20 15:31> Clinical Impression: Fever, Weakness, Atrial fibrillation with RVR, Elevated troponin Disposition: ADMITTED IP TO THIS HOSP
[2020-12-19 11:27] LABS: Anisocytosis Moderate; HCT 38.2 % (39.0-53.0); HGB 11.9 gm/dL (13.0-17.5); Hypochromasia Moderate; MCH 28.6 pg (25.0-35.0); MCHC 31.1 g/dL (31.0-37.0); MCV 91.9 fL (80.0-100.0); Macrocytosis Slight; Mean Platelet Volume 9.2; Microcytosis Slight; Platelet Count 302 k/uL (150-450); Poikilocytosis Slight; RBC 4.16 m/uL (4.30-5.90); RDW 23.3 % (11.5-15.5)
[2020-12-19 11:29] LABS: INR 1.8 (<1.2); Partial Thromboplastin Time 26.3 sec (22.0-30.0); Prothrombin Time 17.7 sec (9.0-12.0)
[2020-12-19 11:36] LABS: Albumin 2.8 g/dL (3.5-5.0); Calcium 8.7 mg/dL (8.4-10.2); Potassium 3.5 mmol/L (3.5-5.1); Total Bilirubin 0.5 mg/dL (0.2-1.3); Total Protein 5.7 g/dL (6.3-8.2)
[2020-12-19] MEDS ORDERED: DEXTROSE 50% SYRINGE 50 ML IVP STA ×3 (11:47→16:56)
--- NOTE | 2020-12-19 11:57 | XR ---
EXAMINATION TYPE: XR chest 2V DATE OF EXAM: 12/19/2020 COMPARISON: Chest CT May 11, 2020. 2 view chest x-ray October 09, 2020 HISTORY: Fever and difficulty in breathing. TECHNIQUE: Frontal and lateral views of the chest are obtained. FINDINGS: There is large bore right internal jugular dialysis catheter terminating in SVC on current study. Overlying sternal wires and mediastinal clips are redemonstrated. Persistent cardiomegaly wit h new central vascular congestion and bibasilar opacities. The osseous structures are intact. IMPRESSION: Findings consistent with CHF exacerbation and/or fluid overload status as there is card iomegaly with new small to moderate sized bilateral pleural effusions and moderate central vascular c ongestion on current study.
[2020-12-19] MEDS ORDERED: PIPERACILLIN-TAZOBACTAM 3.375 GM in SODIUM CHLORIDE 0.9% 100 ML IVPB STA (12:10)
[2020-12-19] MEDS ORDERED: VANCOMYCIN IV PER PHARMACY 1 EACH MISC MISCELLANE PRN (12:10)
[2020-12-19] MEDS ORDERED: SODIUM CHLORIDE 0.9% 1,000 ML IV STA ×2 (12:11→14:35)
[2020-12-19 12:16] LABS: Glucose,Whole Blood 141 mg/dL (75-99)
[2020-12-19 12:27] LABS: Band Neutrophils % 10 %; Eosinophils # (M) 0.02 k/uL (0-0.7); Metamyelocytes # (M) 0.04 k/uL (0); Metamyelocytes % 2 %; Monocytes # (M) 0.14 k/uL (0-1.0); Neutrophils % (M) 65 %; Nucleated Red Blood Cells 0 /100 WBC (0-0); Polychromasia Present; Total Cells Counted 100
[2020-12-19 12:28] LABS: Mixed Population RBC Present; RBC Fragments Present; Tear Drop Cells Present
[2020-12-19] MEDS ORDERED: VANCOMYCIN 1,250 MG in SODIUM CHLORIDE 0.9% 250 ML IVPB ONE (12:30)
[2020-12-19] MEDS ORDERED: MIDODRINE 5 MG TAB PO STA (12:56)
[2020-12-19] MEDS ORDERED: DEXTROSE 5% IN WATER 100 ML with AMIODARONE 150 MG IV ONE (14:00)
[2020-12-19] MEDS ORDERED: ACETAMINOPHEN TAB 325 MG TAB PO PRN (14:04)
[2020-12-19] MEDS ORDERED: NALOXONE 0.4 MG/ML 1 ML VIAL IV PRN ×2 (14:04→14:11)
[2020-12-19] MEDS ORDERED: AMIODARONE 360 MG in DEXTROSE 5% IN WATER 200 ML IV ONE ×2 (14:15)
[2020-12-19] MEDS ORDERED: NOREPINEPHRINE 8 MG in SODIUM CHLORIDE 0.9% 250 ML IV SCH (14:15)
[2020-12-19 14:39] LABS: Glucose,Whole Blood 46 mg/dL (75-99)
[2020-12-19 14:57] LABS: Glucose,Whole Blood 93 mg/dL (75-99)
[2020-12-19] MEDS ORDERED: IPRATROPIUM-ALBUTEROL 3 ML NEB INHALATION STA (15:19)
[2020-12-19 15:38] LABS: Appearance,Urine Cloudy (Clear); Bacteria,Urine Rare /hpf; Bilirubin,Urine Negative (Negative); Blood,Urine Negative (Negative); Budding Yeast,Urine Few /hpf; Color,Urine Yellow; Glucose,Urine (UA) Negative (Negative); Hyaline Casts,Urine 37 /lpf (0-2); Ketones,Urine Negative (Negative); Leukocyte Esterase,Urine Small (Negative); Mucus,Urine Rare /hpf; Nitrite,Urine Negative (Negative); Protein,Urine 1+ (Negative); RBC,Urine 3 /hpf (0-5); Specific Gravity,Urine 1.019 (1.001-1.035); Squamous Epithelial Cell,Urine 1 /hpf (0-4); Urobilinogen,Urine <2.0 mg/dL (<2.0); WBC,Urine 8 /hpf (0-5)
[2020-12-19] MEDS ORDERED: MIDODRINE 5 MG TAB PO PRN (15:42)
[2020-12-19 15:45] LABS: VBG PH 7.42 (7.31-7.41)
[2020-12-19 15:53] LABS: Anisocytosis Moderate; HCT 35.5 % (39.0-53.0); HGB 11.4 gm/dL (13.0-17.5); Hypochromasia Marked; MCH 29.8 pg (25.0-35.0); Macrocytosis Slight; Mean Platelet Volume 9.2; Microcytosis Slight; Platelet Count 245 k/uL (150-450); Poikilocytosis Slight; RBC 3.82 m/uL (4.30-5.90)
[2020-12-19 15:57] LABS: ABG Base Excess -0.7 mmol/L; ABG HCO3 25 mmol/L (21-25); ABG Oxygen Saturation 12.1 % (94-97); ABG PCO2 42 mmHg (35-45); ABG PH 7.38 (7.35-7.45); ABG TCO2 26 mmol/L (19-24); Allen Test Performed? Yes
[2020-12-19 16:00] LABS: WBC 1.2 k/uL (3.8-10.6)
--- NOTE | 2020-12-19 16:23 | P.HPIM ---
History of Present Illness H&P Date: 12/19/20 Chief Complaint: Weakness, fevers 75-year-old man with medical history of end-stage renal disease status post renal transplantation 2, both of which failed, CAD, permanent atrial fibrillation, recent hospitalization for Aspergillus pneumonia in setting of 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 Patient was discharged approximately one month ago with acute hypoxemic respiratory failure warranting 25 daily hospitalization 1 week of which was in the ICU at which time he peaked at 15 L high flow nasal cannula. He improved to 2 L nasal cannula with which he was discharged after initiation of voriconazole for positive fungitell with positive aspergillis antigen. Since his discharge, his insulin levels have been adjusted due to labile blood sugars, with down titration down to 26 units of NPH daily. He had been requiring more Midodrin due to low blood pressures, and had his Coreg discontinued in lieu of atenolol by his director of product management. With these changes, patient's heart rates were under good control, blood pressures have improved. However, he had gone to dialysis on 12/18 during which they pulled off approximately 3.1 kg of fluid. After returning home, patient had difficulty getting up the steps into his house, and was lethargic and weak. Patient's is taking his blood pressures and noted them to be 80s over 40s. He was also noted to be tachycardic in the 130s. Today, patient spiked a fever to 101.7 and had ongoing lethargy and weakness, as well as the appearance of increased duskiness. Given this change medical status, brought him into the emergency room for further evaluation. In the ER, patient was noted to be in atrial flutter ablation with RVR with rates going as high as the 160s, he was also hypotensive with a estuardo in the 60s over 30s. He did spike a fever to 101.7. His white blood cell count was low at 2.0, with low lymphocytes. His sugars have been labile down to 42 requiring multiple pushes of D50. Troponins were mildly elevated at 0.042. Influenza A/B, RSV, Covid were all negative. Chest x-ray demonstrated evidence of volume overload with central vascular congestion as well as bilateral pleural effusions which were mild to moderate. Patient was treated with amiodarone bolus, 14279 mL of fluid, and started on vancomycin/Zosyn. Patient was discussed with pulmonology team, and recommended for ICU admission. Medicine will admit the patient to our service with consulting specialists including pulmonology, cardiology, nephrology. Review of Systems All Systems reviewed and pertinent positives and negatives noted in HPI, all oth er symptoms are negative Past Medical History Past Medical History: Atrial Fibrillation, Coronary Artery Disease (CAD), Chest Pain / Angina, Diabetes Mellitus, Hyperlipidemia, Hypertension, Myocardial Infarction (SD), Renal Disease Additional Past Medical History / Comment(s): Abdominal pain since coughing so much past few weeks, ischemic heart disease, IDDM type II, neuropathy bilateral feet, CKD stage III/polycystic kidney disease/had L renal transplant in 2002 (no longer functions and a r kidney transplant in 2015 that does function), immunocompromised, anemia, hypoalbuminemia, L leg edema (donor site from L leg), L inguinal and umbilical hernias. Last Myocardial Infarction Date:: 2014 History of Any Multi-Drug Resistant Organisms: None Reported Past Surgical History: Coronary Bypass/CABG, Heart Catheterization With Stent Additional Past Surgical History / Comment(s): Bilateral nephrectomies, renal biopsies, 2002 L kidney transplant, 2015 R kidney transplant, 2013 CABG 4 vessel, PCI with stents in 2011 and 2014, colonoscopy/benign polypectomy Past Anesthesia/Blood Transfusion Reactions: No Reported Reaction Additional Past Anesthesia/Blood Transfusion Reaction / Comment(s): Pt received blood in 2002 with no reaction. Date of Last Stent Placement:: 2014 Past Psychological History: No Psychological Hx Reported Smoking Status: Never smoker Past Alcohol Use History: None Reported Past Drug Use History: None Reported - Past Family History Brother(s) Family Medical History: Renal Disease Additional Family Medical History / Comment(s): Polycystic kidney disease Sister(s) Family Medical History: Renal Disease Additional Family Medical History / Comment(s): Polycystic kidney disease. Father Family Medical History: Cancer Additional Family Medical History / Comment(s): LUNG CANCER Mother Family Medical History: Renal Disease Additional Family Medical History / Comment(s): POLYCYSTIC KIDNEY DISEASE Medications and Allergies Home Medications Medication Instructions Recorded Confirmed Type Ergocalciferol [Vitamin D2 1,250 mcg PO Q30D 01/12/15 12/19/20 History (DRISDOL)] atenoloL [Tenormin] 25 mg PO HS 01/12/15 12/19/20 History Aspirin EC [Ecotrin Low Dose] 81 mg PO DAILY 07/31/16 12/19/20 History Insulin NPH Human Isophane 10 unit SQ AC-SUPPER 07/31/16 12/19/20 History [NovoLIN N] Insulin NPH Human Isophane 26 unit SQ AC-BRKFST 07/31/16 12/19/20 History [NovoLIN N] Ferrous Sulfate [Iron (65 MG 65 mg PO DAILY 02/27/20 12/19/20 History Elemental)] Multivitamins, Thera [Multivitamin 1 tab PO DAILY 02/27/20 12/19/20 History (formulary)] Nitroglycerin Sl Tabs [Nitrostat] 0.4 mg SL Q5M PRN 02/27/20 12/19/20 History Atorvastatin [Lipitor] 40 mg PO DAILY 07/16/20 12/19/20 History Famotidine [Pepcid] 20 mg PO BID #60 tablet 10/11/20 12/19/20 Rx Apixaban [Eliquis] 2.5 mg PO BID 12/19/20 12/19/20 History Budesonide/Formoterol Fumarate 1 puff INHALATION RT-BID 12/19/20 12/19/20 Hist ory [Symbicort 160-4.5 Mcg Inhaler] Midodrine HCl [ProAmatine] 10 mg PO TUTHSA@06,,12/19/20 12/19/20 History Renavite 1 tab PO HS 12/19/20 12/19/20 History Tacrolimus [Prograf] 0.5 mg PO DAILY 12/19/20 12/19/20 History Voriconazole [Vfend] 200 mg PO Q12H 12/19/20 12/19/20 History Allergies Allergy/AdvReac Type Severity Reaction Status Date / Time No Known Allergies Allergy Verified 12/19/20 11:42 Physical Exam Osteopathic Statement: *. No significant issues noted on an osteopathic structural exam other than those noted in the History and Physical/Consult. Vitals: Vital Signs Temp Pulse Resp BP Pulse Ox 12/19/20 15:20 149 H 32 H 100/77 89 L 12/19/20 14:45 131 H 30 H 108/89 12/19/20 14:42 104/68 12/19/20 14:39 123 H 26 H 63/51 90 L 12/19/20 14:19 148 H 24 104/47 93 L 12/19/20 13:45 151 H 22 99/89 95 12/19/20 13:30 144 H 22 117/76 94 L 12/19/20 13:00 126 H 20 94/64 94 L 12/19/20 12:45 126 H 20 86/51 96 12/19/20 12:30 122 H 20 84/68 92 L 12/19/20 12:20 125 H 20 92/64 92 L 12/19/20 12:00 98.8 F 146 H 18 74/60 93 L 12/19/20 11:56 144 H 18 97/76 94 L 12/19/20 10:34 101.7 F H 74 18 105/80 94 L Intake and Output 12/19/20 12/19/20 12/19/20 06:59 14:59 22:59 Other: Weight 70.76 kg Gen: awake, alert HEENT: normocephalic, atraumatic, good hearing acuity, moist mucous membranes Resp: tachypnea, with accessory muscle use, appears in moderate distress from dyspnea, right lower lobe crackles, clear to auscultation on the left, no wheezes CVS: good distal perfusion x 4, tachycardic, regular rhythm, no murmurs GI: soft, NTTP, ND, palpable kidney in the left lower quadrant and right lower quadrant : no SPT, no CVAT, chery catheter is present MSK: Bilateral 3-4+ pitting edema, no clubbing, cyanotic digits with dusky appearance and poor cap refill, palpable pulses in all 4 chambers Neuro: non-focal, moving all extremities Psych: cooperative, euthymic mood Results CBC & Chem 7: 12/19/20 11:00 12/19/20 11:00 Labs: Abnormal Lab Results - Last 24 Hours (Table) 12/19/20 12/19/20 12/19/20 Range/Units 11:00 11:00 11:00 WBC 2.0 L (3.8-10.6) k/uL RBC 4.16 L (4.30-5.90) m/uL Hgb 11.9 L (13.0-17.5) gm/dL Hct 38.2 L (39.0-53.0) % RDW 23.3 H (11.5-15.5) % Lymphocytes # (Manual) 0.30 L (1.0-4.8) k/uL Metamyelocytes # (Man) 0.04 H (0) k/uL PT 17.7 H (9.0-12.0) sec INR 1.8 H (<1.2) Sodium 131 L (137-145) mmol/L Chloride 95 L (98-107) mmol/L BUN 68 H (9-20) mg/dL Creatinine 2.96 H (0.66-1.25) mg/dL Glucose 42 L* (74-99) mg/dL POC Glucose (mg/dL) (75-99) mg/dL Alkaline Phosphatase 337 H (38-126) U/L Troponin I (0.000-0.034) ng/mL Total Protein 5.7 L (6.3-8.2) g/dL Albumin 2.8 L (3.5-5.0) g/dL 12/19/20 12/19/20 12/19/20 Range/Units 11:00 12:14 14:28 WBC (3.8-10.6) k/uL RBC (4.30-5.90) m/uL Hgb (13.0-17.5) gm/dL Hct (39.0-53.0) % RDW (11.5-15.5) % Lymphocytes # (Manual) (1.0-4.8) k/uL Metamyelocytes # (Man) (0) k/uL PT (9.0-12.0) sec INR (<1.2) Sodium (137-145) mmol/L Chloride (98-107) mmol/L BUN (9-20) mg/dL Creatinine (0.66-1.25) mg/dL Glucose (74-99) mg/dL POC Glucose (mg/dL) 141 H 46 L (75-99) mg/dL Alkaline Phosphatase (38-126) U/L Troponin I 0.042 H* (0.000-0.034) ng/mL Total Protein (6.3-8.2) g/dL Albumin (3.5-5.0) g/dL Assessment and Plan Assessment: Septic shock with acute hypoxemic respiratory failure Permanent atrial fibrillation with RVR Immunocompromised -Admit to ICU, telemetry -IV fluids: 41730 mL in the ER, hold off on further fluids at this time -Levophed to keep maps greater than 65 -Follow blood cultures -Follow up urine culture -Follow up 1,3,-[id number] -Follow up pro-calcitonin -ABG, pending -Central venous gas (unvalidated on our lab machines) = pO2 48, SvO2 77.6% (if accurate, c/w distributive shock) -Empiric vancomycin/Zosyn, voriconazole 300 mg IV twice a day -Amiodarone IV -Continue Eliquis -Cardiology, pulmonary, ID consultation appreciated Hypoglycemia with Diabetes type 2 -q4h sugar checks -d50 injections PRN for BS < 80 -hold home insulin for now -anticipate improvement with treatment of underlying sepsis End-stage renal disease -Nephrology consult -Renally dose medications -Strict I's and O's -Daily weights -Hold tacrolimus -Tacrolimus level, pending CAD HTN HLD -All home medications reviewed and reconciled Patient is a full code is the DPOA
[2020-12-19 16:27] LABS: Band Neutrophils % 4 %; Lymphocytes # (M) 0.25 k/uL (1.0-4.8); Metamyelocytes # (M) 0.02 k/uL (0); Metamyelocytes % 2 %; Monocytes # (M) 0.08 k/uL (0-1.0); Neutrophils % (M) 66 %; Nucleated Red Blood Cells 0 /100 WBC (0-0); Polychromasia Present; Total Cells Counted 100
[2020-12-19 16:28] LABS: Tear Drop Cells Present
[2020-12-19 16:30] LABS: ABG PO2 15 mmHg (83-108)
[2020-12-19 16:36] LABS: Calcium 7.7 mg/dL (8.4-10.2); Magnesium 1.7 mg/dL (1.6-2.3); Potassium 3.4 mmol/L (3.5-5.1)
[2020-12-19] MEDS ORDERED: SODIUM CHLORIDE 0.9% 1,000 ML IV ONE (16:45)
[2020-12-19] MEDS ORDERED: DEXTROSE 5%-0.9% NACL 1,000 ML IV SCH (16:45)
--- NOTE | 2020-12-19 16:55 | P.CNPUL ---
History of Present Illness Consult date: 12/19/20 Chief complaint: Generalized weakness and hypotension History of present illness: Is a very pleasant 75-year-old male patient who came into the emergency department quite ill. Note that the patient has an extensive history. He is known to have coronary artery disease, previous bypass surgery, atrial fibrillation, previous history of polycystic kidney disease and the patient undergone transportation 2 and his last or the second transportation was done in 2015 and the patient has been maintained on immunosuppression with Prograf. Note that the patient has progressively worsening in renal function and recently during an evaluation at [facility] the patient was diagnosed to have a pneumonia which ultimately turned out to be related to a Aspergillus pneumonia and during the same hospitalization the patient was diagnosed having progressive renal failure which ultimately required dialysis and his been on dialysis since. At a time of discharge, the patient was released home and he was asked to continue voriconazole at a dose of 200 mg by mouth twice a day. He was asked also to gradually titrate his Prograf dose and he is currently down to 0.5 mg by mouth daily for another 30 days and later on every other day and then stop. Note that he was also given a permacath which is in his right IJ for hemodialysis and his last hemodialysis session was yesterday. Note that the patient came into the emergency department feeling weak, tired, hypoglycemic, hypotensive, tachycardic and the patient was found to be nature fibrillation with rapid ventricular response. Note that he has chronic atrial fibrillation. Currently is on amiodarone drip which is being loaded at 1 mg per minute. His current heart rate is around 140, irregular. He was hypotensive with a systolic blood pressure down to the 60s. He was febrile with a temperature of 11.7. He was given a total of 2 L of IV fluids and his blood sugar also with the 50. He did drop twice his blood sugars and required D50 on 2 separate occasions. The patient current blood pressure is around 95/66. He is quite tachypneic and his respirations in the mid 30s. He is on the percent nonrebreather facemask. He was also given a combination of Zosyn and vancomycin in the emergency department. Urine output is minimal at this point in time. UA was noted. Cultures have been sent. He does have a stage II to 3 sacral decubitus ulceration. There is no drainage from the wounds. There is no surrounding cellulitis. There is no necrosis. Chest x-ray revealed lower lobe pulmonary infiltrates bilaterally. He does have also some underlying cardiomegaly. the chest x-ray is more consistent with CHF and central vascular congestion and possibly some small bilateral pleural effusions. The patient is going to be transferred to the intensive care unit for now. Review of Systems Constitutional: Reports fatigue, Reports fever, Reports lethargy, Reports malaise, Reports poor appetite, Reports weakness Eyes: denies as per HPI, denies blurred vision, denies bulging eye, denies decreased vision, denies diplopia, denies discharge, denies dry eye, denies irritation, denies itching, denies pain, denies photophobia, denies loss of peripheral vision, denies loss of vision, denies tunnel vision/blind spots Ears: deny: decreased hearing, ear discharge, earache, tinnitus Ears, nose, mouth and throat: Reports as per HPI Breasts: absent: as per HPI, gynecomastia Cardiovascular: Reports decreased exercise tolerance, Reports dyspnea on exertion, Reports irregular heart beat, Reports leg edema Gastrointestinal: Reports as per HPI Genitourinary: Reports as per HPI Musculoskeletal: Reports as per HPI Musculoskeletal: absent: ankle pain, ankle stiffness, ankle swelling, as per HPI, elbow pain, elbow stiffness, elbow swelling, foot pain, foot stiffness, foot swelling, hand pain, hand stiffness, hand swelling, hip pain, hip stiffness, hip swelling, knee pain, knee stiffness, knee swelling, shoulder pain, shoulder stiffness, shoulder swelling, wrist pain, wrist stiffness, wrist swelling Integumentary: Reports as per HPI Neurological: Reports as per HPI Psychiatric: Reports as per HPI Endocrine: Reports as per HPI Hematologic/Lymphatic: Reports as per HPI Allergic/Immunologic: Reports as per HPI Past Medical History Past Medical History: Atrial Fibrillation, Coronary Artery Disease (CAD), Chest Pain / Angina, Diabetes Mellitus, Hyperlipidemia, Hypertension, Myocardial Infarction ([place]), Renal Disease Additional Past Medical History / Comment(s): Abdominal pain since coughing so much past few weeks, ischemic heart disease, IDDM type II, neuropathy bilateral feet, CKD stage III/polycystic kidney disease/had L renal transplant in 2002 (no longer functions and a r kidney transplant in 2016 that does function), immunocompromised, anemia, hypoalbuminemia, L leg edema (donor site from L leg), L inguinal and umbilical hernias. Last Myocardial Infarction Date:: 2014 History of Any Multi-Drug Resistant Organisms: None Reported Past Surgical History: Coronary Bypass/CABG, Heart Catheterization With Stent Additional Past Surgical History / Comment(s): Bilateral nephrectomies, renal biopsies, 2002 L kidney transplant, 2015 R kidney transplant, 2013 CABG 4 vessel, PCI with stents in 2011 and 2014, colonoscopy/benign polypectomy Past Anesthesia/Blood Transfusion Reactions: No Reported Reaction Additional Past Anesthesia/Blood Transfusion Reaction / Comment(s): Pt received blood in 2002 with no reaction. Date of Last Stent Placement:: 2014 Past Psychological History: No Psychological Hx Reported Smoking Status: Never smoker Past Alcohol Use History: None Reported Past Drug Use History: None Reported - Past Family History Brother(s) Family Medical History: Renal Disease Additional Family Medical History / Comment(s): Polycystic kidney disease Sister(s) Family Medical History: Renal Disease Additional Family Medical History / Comment(s): Polycystic kidney disease. Father Family Medical History: Cancer Additional Family Medical History / Comment(s): LUNG CANCER Mother Family Medical History: Renal Disease Additional Family Medical History / Comment(s): POLYCYSTIC KIDNEY DISEASE Medications and Allergies Home Medications Medication Instructions Recorded Confirmed Type Ergocalciferol [Vitamin D2 1,250 mcg PO Q30D 01/12/15 12/19/20 History (DRISDOL)] atenoloL [Tenormin] 25 mg PO HS 01/12/15 12/19/20 History Aspirin EC [Ecotrin Low Dose] 81 mg PO DAILY 07/31/16 12/19/20 History Insulin NPH Human Isophane 10 unit SQ AC-SUPPER 07/31/16 12/19/20 History [NovoLIN N] Insulin NPH Human Isophane 26 unit SQ AC-BRKFST 07/31/16 12/19/20 History [NovoLIN N] Ferrous Sulfate [Iron (65 MG 65 mg PO DAILY 02/27/20 12/19/20 History Elemental)] Multivitamins, Thera [Multivitamin 1 tab PO DAILY 02/27/20 12/19/20 History (formulary)] Nitroglycerin Sl Tabs [Nitrostat] 0.4 mg SL Q5M PRN 02/27/20 12/19/20 History Atorvastatin [Lipitor] 40 mg PO DAILY 07/16/20 12/19/20 History Famotidine [Pepcid] 20 mg PO BID #60 tablet 10/11/20 12/19/20 Rx Apixaban [Eliquis] 2.5 mg PO BID 12/19/20 12/19/20 History Budesonide/Formoterol Fumarate 1 puff INHALATION RT-BID 12/19/20 12/19/20 History [Symbicort 160-4.5 Mcg Inhaler] Midodrine HCl [ProAmatine] 10 mg PO TUTHSA@,,12/19/20 12/19/20 History Renavite 1 tab PO HS 12/19/20 12/19/20 History Tacrolimus [Prograf] 0.5 mg PO DAILY 12/19/20 12/19/20 History Voriconazole [Vfend] 200 mg PO Q12H 12/19/20 12/19/20 History Allergies Allergy/AdvReac Type Severity Reaction Status Date / Time No Known Allergies Allergy Verified 12/19/20 11:42 Physical Exam Vitals: Vital Signs Temp Pulse Resp BP Pulse Ox 12/19/20 16:15 141 H 2 L 90/72 92 L 12/19/20 16:00 138 H 32 H 89/60 89 L 12/19/20 15:20 149 H 32 H 100/77 89 L 12/19/20 14:45 131 H 30 H 108/89 12/19/20 14:42 104/68 12/19/20 14:39 123 H 26 H 63/51 90 L 12/19/20 14:19 148 H 24 104/47 93 L 12/19/20 13:45 151 H 22 99/89 95 12/19/20 13:30 144 H 22 117/76 94 L 12/19/20 13:00 126 H 20 94/64 94 L 12/19/20 12:45 126 H 20 86/51 96 12/19/20 12:30 122 H 20 84/68 92 L 12/19/20 12:20 125 H 20 92/64 92 L 12/19/20 12:00 98.8 F 146 H 18 74/60 93 L 12/19/20 11:56 144 H 18 97/76 94 L 12/19/20 10:34 101.7 F H 74 18 105/80 94 L Intake and Output 12/19/20 12/19/20 12/19/20 06:59 14:59 22:59 Other: Weight 70.76 kg Gen. appearance the patient is lethargic, weak, shaky, currently on 100% percent nonrebreather facemask, he is also tachypneic. Head exam was generally normal. There was no scleral icterus or corneal arcus. Mucous membranes were moist. Neck was supple and without jugular venous distension, thyromegaly, or carotid bruits. Carotids were easily palpable bilaterally. There was no adenopathy. Mucous membranes are quite dry at this point in time. Lungs sounds are diminished in lung bases along with some limited bibasilar crackles. Heart sounds are irregular consistent with atrial fibrillation and the patient is quite tachycardic, irregular S1-S2, no significant murmurs appreciated. Abdominal exam revealed normal bowel sounds. The abdomen was soft, non-tender, and without masses, organomegaly, or appreciable enlargement of the abdominal aorta. The patient has scars of previous kidney transplant surgery and the transplanted organs can be easily felt over the anterior abdominal wall. No direct tenderness. No rebound tenderness. No guarding. Extremities revealed +1 pitting edema. There is some cyanosis in his toes bilaterally and pulses are diminished in all 4 extremities. Neurologically, the patient is awake and alert and following commands. He seems to be slightly encephalopathic secondary to sepsis. 0.0 for extremities without any limitation. His been profoundly weak and he is global generalized weakness in all 4 extremities. Following commands. Skin the patient has a stage III sacral decub ulcer. This is probably 2 x 3 cm in size. No active drainage. The base is dry. The patient also has a permacath in his right IJ and exit site is dry clean and intact. Results - Laboratory Findings CBC and BMP: 12/19/20 15:34 12/19/20 15:34 ABG ABG pH 7.38 (7.35-7.45) 12/19/20 15:54 ABG pCO2 42 mmHg (35-45) 12/19/20 15:54 ABG pO2 15 mmHg (83-108) L* 12/19/20 15:54 ABG O2 Saturation 12.1 % (94-97) L 12/19/20 15:54 PT/INR, D-dimer PT 17.7 sec (9.0-12.0) H 12/19/20 11:00 INR 1.8 (<1.2) H 12/19/20 11:00 Abnormal lab findings: Abnormal Labs 12/19/20 12/19/20 12/19/20 11:00 11:00 11:00 WBC 2.0 L RBC 4.16 L Hgb 11.9 L Hct 38.2 L RDW 23.3 H Neutrophils # (Manual) Lymphocytes # (Manual) 0.30 L Metamyelocytes # (Man) 0.04 H PT 17.7 H INR 1.8 H ABG pO2 ABG Total CO2 ABG O2 Saturation VBG pH VBG pCO2 VBG HCO3 Sodium 131 L Potassium Chloride 95 L Carbon Dioxide BUN 68 H Creatinine 2.96 H Glucose 42 L* POC Glucose (mg/dL) Calcium Alkaline Phosphatase 337 H Troponin I Total Protein 5.7 L Albumin 2.8 L Urine Protein Ur Leukocyte Esterase Urine WBC Urine Bacteria Hyaline Casts Urine Mucus Urine Yeast (Budding) 12/19/20 12/19/20 12/19/20 11:00 12:14 14:28 WBC RBC Hgb Hct RDW Neutrophils # (Manual) Lymphocytes # (Manual) Metamyelocytes # (Man) PT INR ABG pO2 ABG Total CO2 ABG O2 Saturation VBG pH VBG pCO2 VBG HCO3 Sodium Potassium Chloride Carbon Dioxide BUN Creatinine Glucose POC Glucose (mg/dL) 141 H 46 L Calcium Alkaline Phosphatase Troponin I 0.042 H* Total Protein Albumin Urine Protein Ur Leukocyte Esterase Urine WBC Urine Bacteria Hyaline Casts Urine Mucus Urine Yeast (Budding) 12/19/20 12/19/20 12/19/20 15:08 15:34 15:34 WBC 1.2 L* RBC 3.82 L Hgb 11.4 L Hct 35.5 L RDW 23.0 H Neutrophils # (Manual) 0.80 L Lymphocytes # (Manual) 0.25 L Metamyelocytes # (Man) 0.02 H PT INR ABG pO2 ABG Total CO2 ABG O2 Saturation VBG pH VBG pCO2 VBG HCO3 Sodium 132 L Potassium 3.4 L Chloride Carbon Dioxide 20 L BUN 64 H Creatinine 2.97 H Glucose POC Glucose (mg/dL) Calcium 7.7 L Alkaline Phosphatase Troponin I Total Protein Albumin Urine Protein 1+ H Ur Leukocyte Esterase Small H Urine WBC 8 H Urine Bacteria Rare H Hyaline Casts 37 H Urine Mucus Rare H Urine Yeast (Budding) Few H 12/19/20 12/19/20 15:34 15:54 WBC RBC Hgb Hct RDW Neutrophils # (Manual) Lymphocytes # (Manual) Metamyelocytes # (Man) PT INR ABG pO2 15 L* ABG Total CO2 26 H ABG O2 Saturation 12.1 L VBG pH 7.42 H VBG pCO2 32 L VBG HCO3 20 L Sodium Potassium Chloride Carbon Dioxide BUN Creatinine Glucose POC Glucose (mg/dL) Calcium Alkaline Phosphatase Troponin I Total Protein Albumin Urine Protein Ur Leukocyte Esterase Urine WBC Urine Bacteria Hyaline Casts Urine Mucus Urine Yeast (Budding) - Diagnostic Findings Chest x-ray: image reviewed Assessment and Plan Plan: 1 acute septic shock. The patient presented with fever, generalized weakness, hypotension, tachycardia, mild lactic acidosis, leukopenia and we do suspect an underlying septic shock. He is currently hypotensive. He has received a total of 2 L of IV fluids and the patient may ultimately require some pressors. Blood pressure is somewhat responded to fluids and antibiotics and the patient was given Zosyn and vancomycin combination. 2 Atrial fibrillation with rapid ventricular response currently on amiodarone drip at 1 mg per minute , loading 3 hypoglycemia, treated and the patient will be maintained on D5 normal saline at the rate of 75 mL an hour 4 leukopenia 5 lactic acidosis 6 recent hospitalization for Aspergillus pneumonia maintained on voriconazole an outpatient basis at a dose of 200 mg by mouth twice a day 7 dialysis-dependent renal failure. The patient was restarted on dialysis through a permacath in the right IJ. He is post kidney transportation 2 8 history of polycystic kidney and the patient has undergone transplantation 2 and the last transplant was done in 2015 and the patient has been immunosuppressed utilizing Prograf at a dose of 0.5 mg once a day and this was being gradually weaned off and discontinued 9 coronary artery disease appears bypass surgery, and the patient has undergone previous coronary intervention and stenting. He has had stents in 2006 2014. 10 history of chronic atrial fibrillation 11 history of chronic anemia 13 diabetes mellitus and the patient is currently having episodes of hypoglycemia. 14 hyperlipidemia 15 chronic lower extremity edema Plan The patient additional liter of normal saline to complete a total of 3 L of bolus and the patient was admitted on D5 normal saline today to 100 mL an hour as maintenance and will monitor the blood sugar very closely as the patient is having recurrent bouts of hypoglycemia. Agree on cefepime and vancomycin Restart voriconazole 200 mg by mouth twice a day Stop Prograf for now Blood cultures and urine cultures Infectious disease consultation Obtain echocardiogram Check baseline serum cortisol levels Continue Eliquis for now at a dose of 2.5 mg by mouth twice a day Keep the patient on 100% nonrebreather facemask Monitor lactic acid level Complete the amiodarone loading and currently the patient is a 1 mg per minute per protocol Nephrology consultation Cardiology consultation Transferred the patient to the intensive care unit. His condition is critical. His advanced directives are for the time being.
[2020-12-19 16:58] LABS: Glucose,Whole Blood 42 mg/dL (75-99)
[2020-12-19 17:14] LABS: Glucose,Whole Blood 85 mg/dL (75-99)
[2020-12-19 17:44] LABS: Glucose,Whole Blood 79 mg/dL (75-99)
[2020-12-19] MEDS ORDERED: FILGRASTIM-SNDZ 480 MCG/0.8 ML SYRINGE SQ SCH (18:00)
[2020-12-19] MEDS ORDERED: NOREPINEPHRIN 4 MG-0.9% NS PMX 4 MG/250 ML ML IV ONE (18:21)
[2020-12-19 18:54] LABS: ABG Base Excess -9.2 mmol/L; ABG HCO3 16 mmol/L (21-25); ABG Oxygen Saturation 97.6 % (94-97); ABG PCO2 25 mmHg (35-45); ABG PO2 104 mmHg (83-108); ABG TCO2 16 mmol/L (19-24); Allen Test Performed? Yes
[2020-12-19] MEDS ORDERED: SYMBICORT 160-4.5 MCG INHALER INHALATION SCH (20:00)
[2020-12-19] MEDS ORDERED: AMIODARONE 450 MG in DEXTROSE 5% IN WATER 250 ML IV SCH ×2 (20:15)
[2020-12-19] MEDS ORDERED: DEXMEDETOMIDINE/0.9% NACL(PMX) 400 MCG in EMPTY BAG 1 BAG IV SCH (20:15)
[2020-12-19] MEDS: NOREPINEPHRINE 4 MG in SODIUM CHLORIDE 0.9% 250 ML IV SCH ×2 (20:21→21:27)
[2020-12-19] MEDS ORDERED: SODIUM BICARB 8.4% 50 ML SYR (1 MEQ/ML) ONE (20:45)
[2020-12-19] MEDS ORDERED: EPINEPHrine 10 ML SYRINGE (0.1 MG/ML) ONE (20:45)
[2020-12-19] MEDS ORDERED: SODIUM BICARB 8.4% 50 ML SYR (1 MEQ/ML) IV STA (20:54)
[2020-12-19] MEDS ORDERED: FOLIC ACID-VIT B COMPLEX-VIT C 1 CAP PO SCH (21:00)
[2020-12-19] MEDS ORDERED: DOCUSATE 100 MG CAP PO SCH (21:00)
[2020-12-19] MEDS ORDERED: VORICONAZOLE 200 MG TAB PO SCH (21:00)
[2020-12-19] MEDS ORDERED: FAMOTIDINE 20 MG TAB PO SCH (21:00)
[2020-12-19] MEDS ORDERED: APIXABAN 2.5 MG TABLET PO SCH (21:00)
[2020-12-19] MEDS ORDERED: CEFEPIME 2 GM in SODIUM CHLORIDE 0.9% 100 ML IVPB ONE (21:00)
[2020-12-19] MEDS ORDERED: VORICONAZOLE IVPB SCH (21:00)
[2020-12-19] MEDS ORDERED: SODIUM CHLORIDE 0.9% IVPB SCH (21:00)
[2020-12-19] MEDS ORDERED: SODIUM CHLORIDE 0.9% 150 ML with VASOPRESSIN 60 UNIT IV SCH ×2 (21:15)
[2020-12-19 21:18] LABS: ABG Base Excess -17.5 mmol/L; ABG HCO3 13 mmol/L (21-25); ABG Oxygen Saturation 54.2 % (94-97); ABG PCO2 47 mmHg (35-45); ABG TCO2 14 mmol/L (19-24); Allen Test Performed? Yes
[2020-12-19 21:20] LABS: ABG PH 7.05 (7.35-7.45); ABG PO2 47 mmHg (83-108)
[2020-12-19 21:21] LABS: Glucose,Whole Blood 168 mg/dL (75-99)
[2020-12-19 21:38] LABS: Anisocytosis Moderate; HGB 11.2 gm/dL (13.0-17.5); Hypochromasia Marked; MCH 28.6 pg (25.0-35.0); MCHC 28.7 g/dL (31.0-37.0); Macrocytosis Moderate; Mean Platelet Volume 9.9; Platelet Count 258 k/uL (150-450); Poikilocytosis Slight; RBC 3.92 m/uL (4.30-5.90); RDW 22.7 % (11.5-15.5)
[2020-12-19 21:42] LABS: Albumin 1.8 g/dL (3.5-5.0); Calcium 6.5 mg/dL (8.4-10.2); INR 3.2 (<1.2); Potassium 5.2 mmol/L (3.5-5.1); Prothrombin Time 30.8 sec (9.0-12.0); Total Bilirubin 0.8 mg/dL (0.2-1.3); Total Protein 3.9 g/dL (6.3-8.2)
[2020-12-19 21:47] LABS: MCV 99.6 fL (80.0-100.0)
[2020-12-19] MEDS ORDERED: POTASSIUM CHLORIDE 20 MEQ in WATER FOR INJECTION 1 100ML.BAG IVPB STA (21:51)
[2020-12-19 22:06] LABS: Glucose,Whole Blood 68 mg/dL (75-99)
[2020-12-19] MEDS ORDERED: EPINEPHrine 4 MG in DEXTROSE 5% IN WATER 250 ML IV SCH ×2 (22:30)
[2020-12-19 22:31] LABS: Monocytes # (M) 0.11 k/uL (0-1.0); Neutrophils % (M) 55 %; Nucleated Red Blood Cells 2 /100 WBC (0-0); Total Cells Counted 100
[2020-12-19 22:32] LABS: Lymphocytes # (M) 1.11 k/uL (1.0-4.8); Neutrophils # (M) 1.49 k/uL (1.3-7.7); Polychromasia Present; WBC 2.7 k/uL (3.8-10.6)
[2020-12-19] MEDS ORDERED: NOREPINEPHRINE 32 MG in SODIUM CHLORIDE 0.9% 218 ML IV SCH (23:00)
[2020-12-19] MEDS ORDERED: CALCIUM GLUCONATE 1 GM in SODIUM CHLORIDE 0.9% 100 ML IVPB ONE (23:40)
[2020-12-19] MEDS ORDERED: EPINEPHrine 10 ML SYRINGE (0.1 MG/ML) IV ONE (23:42)
--- NOTE | 2020-12-20 00:16 | P.EN ---
Code Blue Note Activated at 8:45 pm. Arrived on the scene shortly after. The patient was admitted with septic shock. He was admitted to the medical ICU and was started on pressors. The patient subsequently developed hypotension and lost his pulse with PE on the monitor. CPR was immediately initiated. Epinephrine IV push 2 was given along with sodium bicarbonate IV push 2 w/ subsequent ROSC at 2050. The patient again had cardiac arrest at 2133 with ROSC at 2137 after Epi IVP x 1 and sodium bicarb x 1. Discussed the goals of care in great detail with the at the bedside. She noted that she would like to continue with all life-saving measures at this time to give time for her son who is about an hour away to come and say his goodbyes. The clinical statistics manager was notified. Please refer to code sheet for further details.
[2020-12-20 00:25] VITALS: TEMP 97.7
[2020-12-20 01:09] LABS: Glucose,Whole Blood 49 mg/dL (75-99)
[2020-12-20] MEDS ORDERED: DEXTROSE 50% SYRINGE 50 ML IVP STA (01:12)
[2020-12-20 01:37] VITALS: BP 108/52
[2020-12-20 01:42] LABS: Glucose,Whole Blood 145 mg/dL (75-99)
--- NOTE | 2020-12-20 02:10 | XR ---
EXAM: XR Chest, 1 View CLINICAL HISTORY: ITS.REASON XR Reason: shortness of breath TECHNIQUE: Frontal view of the chest. COMPARISON: 12/19/2020 IMPRESSION: Cardiomegaly. Mild bilateral pleural effusions. Mild pulmonary edema. ET tube terminates 5.7 cm from the jose enrique. Right central line terminates in the cavoatrial junction.
[2020-12-20 02:13] LABS: Glucose,Whole Blood 111 mg/dL (75-99)
[2020-12-20 03:12] VITALS: PULSE 56; RESP 32
--- NOTE | 2020-12-20 06:06 | CONS ---
CONSULTATION DATE OF SERVICE: 12/19/2020 REASON FOR CONSULTATION: Fever of unknown origin. HISTORY OF PRESENT ILLNESS: The patient is a 75-year-old male with a past medical history significant for chronic kidney disease in this patient who is status post renal transplant x2. Initial transplant was in 2002, which failed and subsequently last transplant was in 2016. The patient was recently admitted at [facility] in [facility]. Apparently the patient's provided most of the history. The patient's numbers did not look good while in that hospital stay. The patient did have kidney failure and ended up getting a right IJ Perma catheter and was started on dialysis. He also had evidence of Aspergillus pneumonia that has been treated with voriconazole. After stabilization, the patient was discharged. He did have evidence of elevated liver enzymes and was told to hold on the voriconazole. The patient did have his dialysis yesterday and was brought to the ER for evaluation of weakness and shortness of breath that has been progressively getting worse since yesterday. The patient was noticed to be significantly hypoxic requiring a non-rebreather. The patient denies having any headache or URI symptoms. The patient denies having any chest pain. He did have very minimal cough, not bringing up any sputum. Some nausea but no vomiting. No abdominal pain or diarrhea. On arrival to the ER, the patient did have a fever of 101.7 degrees Fahrenheit. The patient was hypoxic requiring non-rebreather. He was tachycardic and hypotensive. He received fluid boluses. On presentation, the patient did have leukopenia with white count 2 repeat was 1.2. The patient did have a creatinine of 2.97. Lactic acid was elevated. Liver enzymes are normal. Troponin was mildly elevated. Urine was not positive. Bhatti PCR was negative. The patient did have a chest x-ray reported findings consistent with CHF exacerbation and fluid overload. The patient received a dose of Zosyn and vancomycin and has been admitted to the hospital. Infectious Disease was consulted with concern for fever of unknown origin. REVIEW OF SYSTEMS: Positive points have been mentioned in HPI. Rest of systems are negative. PAST MEDICAL HISTORY: End-stage renal disease, status post renal transplant x2, currently on dialysis, atrial fibrillation, coronary artery disease, diabetes mellitus, hypertension, hyperlipidemia, ND, recent aspergillus pneumonia. PAST SURGICAL HISTORY: Coronary artery bypass grafting, heart catheterization with stent, renal transplant x2, renal biopsy. SOCIAL HISTORY: No history of smoking, drinking or drug use. FAMILY HISTORY: Brother with history of polycystic kidney disease. Sister with also history of polycystic kidney disease. Father history of lung cancer. ALLERGIES: No known drug allergies. MEDICATIONS: The patient is currently on Tylenol, amiodarone, Eliquis, aspirin, Lipitor. He did receive a dose of Zosyn in the ER. He is currently on vancomycin, Pharmacy to dose, Zaroxolyn, Theragran, Narcan, Protonix, voriconazole. PHYSICAL EXAMINATION: VITAL SIGNS: His blood pressure is 92/64 with a pulse of 137, temperature 98.6. Temperature 101. He is on a non-rebreather. GENERAL DESCRIPTION: Patient is an elderly male lying in bed, mild tachypnea but no accessory muscles of respiration use. HEENT: Examination shows slight pallor, no scleral icterus. Oral mucous membrane is dry. NECK: Trachea central, no thyromegaly. LUNGS: Unlabored breathing, coarse breath sounds bilaterally. No wheeze. HEART: S1-S2, regular rate and rhythm. ABDOMEN: Soft, no tenderness. No guarding or rigidity. EXTREMITIES: No edema of the feet. SKIN: No rash or mass palpable. NEUROLOGICAL: Patient is awake, alert, oriented times three. Mood and affect normal. LABS: Hemoglobin 11.1, white count, 2.8, BUN of 68, creatinine is 2.96. Liver enzymes are normal. Urine is negative. DIAGNOSTIC IMPRESSION: Patient admitted to the hospital with sepsis in this patient who did have a fever, tachycardia, hypotension, in this patient with history of end-stage renal disease, status post transplant that recently failed and the patient is currently on immunosuppressants that have been slowly cutting back with recent diagnosis of aspergillus pneumonia. Chest x-ray did show some interstitial pattern and not a consolidative disease. Source of the fever and sepsis could be Perma catheter-related versus pneumonia. His abdominal was soft on examination with no evidence of any cellulitis or joint swelling. PLAN: 1. Blood culture should be obtained for Perma catheter during dialysis. 2. Vancomycin, Pharmacy to dose and will add cefepime 2 grams daily. 3. Continue voriconazole. 4. We will follow on his clinical condition and culture to further adjust medication if needed. Thank you for this consultation. Will follow this patient along with you. MMODL / IJN: [id number] /
[2020-12-20] MEDS ORDERED: INSULIN NPH 300 UNIT/3 ML VIAL SQ SCH (07:30)
--- NOTE | 2020-12-20 08:38 | PCN ---
PROCEDURE NOTE PROCEDURE: Right radial arterial line placement. PREOPERATIVE DIAGNOSIS: Septic shock. POSTOPERATIVE DIAGNOSIS: Septic shock. ARTERIAL LINE PLACEMENT: Indications: Hemodynamic monitoring. A time-out was completed verifying correct patient, procedure, site, positioning, and implant(s) or special equipment if applicable. Zac's test was performed to ensure adequate perfusion. The patient's right wrist was prepped and draped in sterile fashion. 1% Lidocaine was used to anesthetize the area. An 18G Arrow arterial line was introduced into the right radial artery. The catheter was threaded over the guide wire and the needle was removed with appropriate pulsatile blood return. Blood loss was minimal. The catheter was then sutured in place to the skin and a sterile dressing applied. Perfusion to the extremity distal to the point of catheter insertion was checked and found to be adequate. The patient tolerated the procedure well and there were no complications. Right radial art line was inserted without difficulty, no immediate complications, good waveform was noted, line was flushed, sutured in place, sterile dressing was applied by the nursing staff. The patient tolerated procedure well. No immediate complications. MMODL / IJN: [id number] /
[2020-12-20] MEDS ORDERED: CEFEPIME 2 GM in SODIUM CHLORIDE 0.9% 100 ML IVPB SCH (09:00)
[2020-12-20] MEDS ORDERED: ASPIRIN 81 MG PO SCH (09:00)
[2020-12-20] MEDS ORDERED: PANTOPRAZOLE 40 MG/10 ML VIAL IVP SCH (09:00)
[2020-12-20] MEDS ORDERED: FERROUS SULFATE 325 MG TAB PO SCH (09:00)
[2020-12-20] MEDS ORDERED: ATORVASTATIN 40 MG TAB PO SCH (09:00)
[2020-12-20] MEDS ORDERED: MULTIVITAMINS, THERA 1 EACH TAB PO SCH (09:00)
[2020-12-20] MEDS ORDERED: TACROLIMUS 0.5 MG CAP PO SCH (09:00)
[2020-12-20] MEDS ORDERED: VANCOMYCIN 1,250 MG in SODIUM CHLORIDE 0.9% 250 ML IVPB ONE (09:00)
--- NOTE | 2020-12-20 14:45 | P.DS ---
Providers Date of admission: 12/19/20 13:44 Expected date of discharge: 12/20/20 Attending physician: Naveed Bishop Consults: 12/19/20 14:04 Consult Physician Routine Consulting Provider: Maxwell Herrera Consult Reason/Comments: renal dialysis, history of transplant Do you want consulting provider notified?: Yes Consult Physician Stat Consulting Provider: Eddie Gonzalez Consult Reason/Comments: A fib RVR, hypotension Do you want consulting provider notified?: Already Contacted Consult Physician Urgent Consulting Provider: [facility] Consult Reason/Comments: Afib RVR, hypotension Do you want consulting provider notified?: Yes 12/19/20 14:07 Consult Physician Routine Consulting Provider: Heaven Boyle Consult Reason/Comments: FUO, Do you want consulting provider notified?: Yes Primary care physician: Aiyana De Los Santos Hospital Course: HPI: 75-year-old man with medical history of end-stage renal disease status post jelani al transplantation 2, both of which failed, CAD, permanent atrial fibrillation, recent hospitalization for Aspergillus pneumonia in setting of 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 Patient was discharged approximately one month ago with acute hypoxemic respiratory failure warranting 25 daily hospitalization 1 week of which was in the ICU at which time he peaked at 15 L high flow nasal cannula. He improved to 2 L nasal cannula with which he was discharged after initiation of voriconazole for positive fungitell with positive aspergillis antigen. Since his discharge, his insulin levels have been adjusted due to labile blood sugars, with down titration down to 26 units of NPH daily. He had been requiring more Midodrin due to low blood pressures, and had his Coreg discontinued in lieu of atenolol by his intel analyst. With these changes, patient's heart rates were under good control, blood pressures have improved. However, he had gone to dialysis on 12/18 during which they pulled off approximately 3.1 kg of fluid. After returning home, patient had difficulty getting up the steps into his house, and was lethargic and weak. Patient's is taking his blood pressures and noted them to be 80s over 40s. He was also noted to be tachycardic in the 130s. Today, patient spiked a fever to 101.7 and had ongoing lethargy and weakness, as well as the appearance of increased duskiness. Given this change medical status, brought him into the emergency room for further evaluation. In the ER, patient was noted to be in atrial flutter ablation with RVR with rates going as high as the 160s, he was also hypotensive with a estuardo in the 60s over 30s. He did spike a fever to 101.7. His white blood cell count was low at 2.0, with low lymphocytes. His sugars have been labile down to 42 requiring multiple pushes of D50. Troponins were mildly elevated at 0.042. Influenza A/B, RSV, Covid were all negative. Chest x-ray demonstrated evidence of volume overload with central vascular congestion as well as bilateral pleural effusions which were mild to moderate. Patient was treated with amiodarone bolus, 66854 mL of fluid, and started on vancomycin/Zosyn. Patient was discussed with pulmonology team, and recommended for ICU admission. Medicine will admit the patient to our service with consulting specialists including pulmonology, cardiology, nephrology. Hospital Course: Septic shock with acute hypoxemic respiratory failure Permanent atrial fibrillation with RVR Immunocompromised Hypoglycemia with Diabetes type 2 End-stage renal disease CAD HTN HLD Following patient's admission, he deteriorated rapidly resulting in CODE BLUE several times. Unfortunately, after multiple attempts at resuscitation, patient was in a condition along incompatible with life. Therefore, patient was made comfortable and allowed to pass away due to complications of septic shock. Assessment: Gen: awake, alert HEENT: normocephalic, atraumatic, good hearing acuity, moist mucous membranes Resp: tachypnea, with accessory muscle use, appears in moderate distress from dyspnea, right lower lobe crackles, clear to auscultation on the left, no wheezes CVS: good distal perfusion x 4, tachycardic, regular rhythm, no murmurs GI: soft, NTTP, ND, palpable kidney in the left lower quadrant and right lower quadrant : no SPT, no CVAT, chery catheter is present MSK: Bilateral 3-4+ pitting edema, no clubbing, cyanotic digits with dusky appearance and poor cap refill, palpable pulses in all 4 chambers Neuro: non-focal, moving all extremities Psych: cooperative, euthymic mood Plan - Discharge Summary Discharge Rx Participant: Yes New Discharge Prescriptions: No Action Ergocalciferol [Vitamin D2 (DRISDOL)] 1,250 mcg PO Q30D atenoloL [Tenormin] 25 mg PO HS Aspirin EC [Ecotrin Low Dose] 81 mg PO DAILY Insulin NPH Human Isophane [NovoLIN N] 26 unit SQ AC-BRKFST Insulin NPH Human Isophane [NovoLIN N] 10 unit SQ AC-SUPPER Nitroglycerin Sl Tabs [Nitrostat] 0.4 mg SL Q5M PRN PRN Reason: Chest Pain Ferrous Sulfate [Iron (65 MG Elemental)] 65 mg PO DAILY Multivitamins, Thera [Multivitamin (formulary)] 1 tab PO DAILY Atorvastatin [Lipitor] 40 mg PO DAILY Famotidine [Pepcid] 20 mg PO BID #60 tablet Voriconazole [Vfend] 200 mg PO Q12H Tacrolimus [Prograf] 0.5 mg PO DAILY Midodrine HCl [ProAmatine] 10 mg PO TUTHSA@ Apixaban [Eliquis] 2.5 mg PO BID Renavite 1 tab PO HS Budesonide/Formoterol Fumarate [Symbicort 160-4.5 Mcg Inhaler] 1 puff INHALATION RT-BID Discharge Medication List Ergocalciferol [Vitamin D2 (DRISDOL)] 1,250 mcg PO Q30D 01/12/15 [History] atenoloL [Tenormin] 25 mg PO HS 01/12/15 [History] Aspirin EC [Ecotrin Low Dose] 81 mg PO DAILY 07/31/16 [History] Insulin NPH Human Isophane [NovoLIN N] 10 unit SQ AC-SUPPER 07/31/16 [History] Insulin NPH Human Isophane [NovoLIN N] 26 unit SQ AC-BRKFST 07/31/16 [History] Ferrous Sulfate [Iron (65 MG Elemental)] 65 mg PO DAILY 02/27/20 [History] Multivitamins, Thera [Multivitamin (formulary)] 1 tab PO DAILY 02/27/20 [History] Nitroglycerin Sl Tabs [Nitrostat] 0.4 mg SL Q5M PRN 02/27/20 [History] Atorvastatin [Lipitor] 40 mg PO DAILY 07/16/20 [History] Famotidine [Pepcid] 20 mg PO BID #60 tablet 10/11/20 [Rx] Apixaban [Eliquis] 2.5 mg PO BID 12/19/20 [History] Budesonide/Formoterol Fumarate [Symbicort 160-4.5 Mcg Inhaler] 1 puff INHALATION RT-BID 12/19/20 [History] Midodrine HCl [ProAmatine] 10 mg PO TUTHSA@06,09,21 12/19/20 [History] Renavite 1 tab PO HS 12/19/20 [History] Tacrolimus [Prograf] 0.5 mg PO DAILY 12/19/20 [History] Voriconazole [Vfend] 200 mg PO Q12H 12/19/20 [History] Follow up Appointment(s)/Referral(s): Aiyana De Los Santos DO [Primary Care Provider] - 1-2 days Discharge Disposition: - Preliminary Cause of Preliminary Cause of : Septic Shock
--- NOTE | 2021-01-23 14:38 | CDI ---
Documentation Clarification Form Date: 01/23/2021 02:18:16 PM From: Lindsey Thacker CCS, CCDS Admit Date: 12/19/2020 01:44:00 PM Patient Name: Galindo Conley Visit Number: [id number] Discharge Date: 12/20/2020 07:25:00 AM ATTENTION: The Clinical Documentation Specialists (CDI) and [facility] Coding Staff appreciate your assistance in clarifying documentation. Please respond to the clarification below the line at the bottom and electronically sign. The CDI & [facility] Coding staff will review the response and follow-up if needed. Please note: Queries are made part of the Legal Health Record. If you have any questions, please contact the author of this message via ITS. Dr. Mike Powell: CHF is documented in the 12/19 CXR, the 12/19 Pulmonary/Critical Care Consult and the 12/19 Infectious Disease Consult without further specificity. Cardiology was not consulted. Additional information regarding the [type, acuity] of CHF is requested. History/Risk Factors per the 12/19 H/P: Chronic Atrial Fibrillation on Eliquis, CAD status post CABG and Stents, IDDM II, Neuropathy, Hypertension, Hyperlipidemia, ESRD on Dialysis, Polycystic Kidney Disease status post Bilateral Renal Transplants (both failed), Immunocompromised, Anemia. Clinical Indicators: Presented to the ED with fever of unknown origin and weakness. Recent admission/discharge with Aspergillus pneumonia. Became very lethargic & weak after dialysis, hypotensive. ED Clinical Impression: Septic shock with acute hypoxic respiratory failure. 01/19 VS: T 101.7, P 74 - 144; R 18 - 20, BP 105/80 - 74/60; PO 94 2Lnc - 92 3Lnc. 01/19 LAB: WBC 2.0 - 1.2; RBC 4.16, Hgb 11.9, Hct 38.2, Neut 1.50 - 0.80; Lymph 0.30 - 0.25; PT 17.7, INR 1.8, Na 131, Cl 95, BUN 68, Cr 2.96, Glucose 42, Lactic acid 2.0 - 5.3; Alk Phos 337, Troponin 0.042, total Protein 5.7, Albumin 2.8. BNP: not done. Blood gas: ABG: pO2 15, Total CO2 26, O2 Sat 12.1 Blood gas: VBG: pH 7.42, pCO2 32, HCO3 20 12/19 CXR: Findings consistent with CHF exacerbation and/or fluid overload status as there is cardiomegaly with new small to moderate sized bilateral pleural effusions and moderate central vascular congestion on current study. 12/20 CXR: Cardiomegaly. Mild bilateral pleural effusions. Mild pulmonary edema. ET tube terminates 5.7 cm from the jose enrique. Right central line terminates in the cavoatrial junction. ECHO (Most Recent): 10/09/2020: Moderate LVH, Left ventricular systolic function mildly impaired w/EF 45-50%, Right ventricle moderate to severely enlarged. Mild aortic valve sclerosis, Trace to mild AR, Mild MR, Mild-mod TR, Moderate Pulmonary hypertension. Per the nursing notes, 10/19: 3-4+ pitting edema. Treatment: IV Dextrose, IV Zosyn, IV fluid Na Cl 1,000 mls @ 999 mls/hr q1H x3, IV Vancomycin, IV Amiodarone, IV Levophed, IV NaBicarb, IV Kcl, IV Calcium Gluconate, IV Adrenalin Central Line, A Line, CPR, Bipap - Intubation w/vent <24 hrs. Patient 12/20/2020 07:25. In your professional opinion, can you please clarify the [acuity and type] of CHF if known? [ ] Acute Diastolic Heart Failure [ ] Chronic Diastolic Heart Failure [ ] Acute on Chronic Diastolic Heart Failure [ ] Acute Systolic & Diastolic Heart Failure [ ] Chronic Systolic & Diastolic Heart Failure [ ] Acute on Chronic Systolic & Diastolic Heart Failure [ ] Heart Failure ruled out [ ] Other, please specify [ ] Unable to determine (Template Last Revised: August 2020) Acute on Chronic Systolic and Diastolic Heart Failure MTDD
== END 2020-12-20 07:25 | disposition expired | DRG 871 ==
LOC: EC 10:33 → 3NCARDOBS 13:44 → 2SICU 15:39
PROVIDERS: ADMIT Internal Medicine; ATTEND Internal Medicine
PROC: 03HY32Z Insertion of Monitoring Device into Upper Artery, Percutaneous Approach (ICD-10-PCS; principal; 2020-12-19)
PROC: 5A1935Z Respiratory Ventilation, Less than 24 Consecutive Hours (ICD-10-PCS; principal; 2020-12-19)
PROC: 3E033XZ Introduction of Vasopressor into Peripheral Vein, Percutaneous Approach (ICD-10-PCS; principal; 2020-12-19)
PROC: 0BH17EZ Insertion of Endotracheal Airway into Trachea, Via Natural or Artificial Opening (ICD-10-PCS; principal; 2020-12-19)
PROC: 5A12012 Performance of Cardiac Output, Single, Manual (ICD-10-PCS; principal; 2020-12-19)
DX: A41.9 Sepsis, unspecified organism (principal); N18.6 End stage renal disease; R65.21 Severe sepsis with septic shock; J96.01 Acute respiratory failure with hypoxia; L89.153 Pressure ulcer of sacral region, stage 3; I50.43 Acute on chronic combined systolic (congestive) and diastolic (congestive) heart failure; Z94.0 Kidney transplant status; I48.21 Permanent atrial fibrillation; I13.2 Hypertensive heart and chronic kidney disease with heart failure and with stage 5 chronic kidney disease, or end stage renal disease; D84.821 Immunodeficiency due to drugs; Z99.2 Dependence on renal dialysis; E11.22 Type 2 diabetes mellitus with diabetic chronic kidney disease; E11.649 Type 2 diabetes mellitus with hypoglycemia without coma; E11.42 Type 2 diabetes mellitus with diabetic polyneuropathy; Z20.822 Contact with and (suspected) exposure to COVID-19; I25.10 Atherosclerotic heart disease of native coronary artery without angina pectoris; I25.2 Old myocardial infarction; Z79.01 Long term (current) use of anticoagulants; Z79.4 Long term (current) use of insulin; Z79.51 Long term (current) use of inhaled steroids; Z79.82 Long term (current) use of aspirin; Z79.899 Other long term (current) drug therapy; Z95.1 Presence of aortocoronary bypass graft; Z95.5 Presence of coronary angioplasty implant and graft; I46.9 Cardiac arrest, cause unspecified; E78.5 Hyperlipidemia, unspecified; D63.1 Anemia in chronic kidney disease
CPT/HCPCS: 36415; 36600; 71045; 71046; 80048; 80053; 81001; 82533; 82803; 82805; 83605; 83735; 84484; 85025; 85610; 85730; 87040; 87449; 87636; 93005; 94002; 94660; 96361; 96365; 96375; 99285